=== PATIENT | female | born 1945 | race Caucasian/White ===

== ENCOUNTER 2022-06-24 09:00 | Outpatient (CLI) | payer MEDICARE, SELFPAY ==
[2022-06-24 19:27] LABS: Alanine Aminotransferase 20 U/L (6-35); Albumin Level 4.5 g/dL (3.5-5.1); Alkaline Phosphatase 79 U/L (38-126); Anion Gap 12 mmol/L (8-16); Aspartate Amino Transferase 53 U/L (14-36); Bilirubin,Total 0.3 mg/dL (0.2-1.3); Blood Urea Nitrogen 22 mg/dL (7-17); Calcium 9.1 mg/dL (8.4-10.2); Carbon Dioxide 26 mmol/L (22-30); Chloride 105 mmol/L (98-107); Cholesterol 269 mg/dL (0-200); Estimated Glomerular Filt Rate > 60; Glucose 110 mg/dL (65-110); HDL Direct 51 mg/dL; Potassium 4.2 mmol/L (3.4-5.0); Sodium 143 mmol/L (137-145); Triglycerides 118 mg/dL (<150)
[2022-06-24 19:38] LABS: LDL Cholesterol Direct 169 mg/dL
[2022-06-24 19:40] LABS: Basophils Percent Auto 0.5 % (0.2-1.2); Eosinophils Absolute Auto 0.1 K/mm3 (0-0.3); Eosinophils Percent Auto 1.6 % (0-4.4); Hematocrit 46.4 % (37.0-47.0); Hemoglobin 14.1 g/dL (12.0-15.0); Immature Granulocyte Absolute 0.02 K/mm3 (0.00-0.031); Immature Granulocyte Percent A 0.3 % (0-0.5); Lymphocytes Absolute Auto 1.95 K/mm3 (0.9-3.2); Lymphocytes Percent Auto 31.2 % (18.3-44.2); Mean Corpuscular HGB Conc 30.4 g/dl (32-36); Mean Corpuscular Hemoglobin 28.1 pg (26-34); Mean Corpuscular Volume 92.4 fl (80-100); Mean Platelet Volume 9.8 fl (7.4-10.4); Monocytes Absolute Auto 0.5 K/mm3 (0.1-0.6); Monocytes Percent Auto 8.1 % (2.6-8.5); Neutrophils Absolute Auto 3.7 K/mm3 (1.3-6.7); Neutrophils Percent Auto 58.3 % (45.5-73.1); Platelet Count Result 305 k/mm3 (150-375); Red Blood Count 5.02 M/mm3 (4.2-5.4); Red Cell Distribution Width 14.3 % (11.5-14.5); White Blood Count 6.3 K/mm3 (4.5-10.0)
== END 2022-06-24 09:01 | disposition home or self-care (01) ==
PROVIDERS: PCP Family Medicine; Visit Provider Family Medicine
DX: E89.0 Postprocedural hypothyroidism (principal)
CPT/HCPCS: 36415; 80053; 80061; 84443; 85025

== ENCOUNTER 2022-08-12 15:18 | Outpatient (CLI) | payer MEDICARE, SELFPAY ==
[2022-08-12 20:11] LABS: Alanine Aminotransferase 22 U/L (6-35); Albumin Level 4.2 g/dL (3.5-5.1); Alkaline Phosphatase 68 U/L (38-126); Aspartate Amino Transferase 41 U/L (14-36); Bilirubin,Total 0.4 mg/dL (0.2-1.3)
[2022-08-12 21:24] LABS: Hepatitis B Surface Antigen Negative (Negative)
[2022-08-12 21:27] LABS: HAV RESULT Negative (Negative); Hepatitis B Core IgM Result Negative (Negative)
[2022-08-12 21:35] LABS: Hepatitis C Virus Antibody Negative (Negative)
== END 2022-08-12 15:19 | disposition home or self-care (01) ==
PROVIDERS: PCP Family Medicine; Visit Provider Family Medicine
DX: R74.01 Elevation of levels of liver transaminase levels (principal); E03.9 Hypothyroidism, unspecified
CPT/HCPCS: 36415; 80074; 80076; 84443

== ENCOUNTER 2022-10-07 14:34 | Outpatient (CLI) | payer MEDICARE, SELFPAY ==
[2022-10-07 21:58] LABS: Thyroid Stimulating Hormone 0.263 uIU/mL (0.465-4.680)
[2022-10-07 23:04] LABS: Hemoglobin A1C 6.6 % (<5.7)
== END 2022-10-07 14:35 | disposition home or self-care (01) ==
PROVIDERS: PCP Family Medicine; Visit Provider Family Medicine
DX: E11.9 Type 2 diabetes mellitus without complications (principal); E89.0 Postprocedural hypothyroidism
CPT/HCPCS: 36415; 83036; 84443

== ENCOUNTER 2022-10-19 14:00 | Outpatient (RCR) | payer MEDICARE, SELFPAY | END 2023-01-03 08:47 | disposition home or self-care (01) | LOC: ANHST 14:00 | PROVIDERS: PCP Family Medicine; Visit Provider Otolaryngology | DX: J38.7 Other diseases of larynx (principal); R49.0 Dysphonia | CPT/HCPCS: 99199 ==

== ENCOUNTER 2022-11-01 10:55 | Outpatient (CLI) | payer MEDICARE, SELFPAY ==
[2022-11-01 12:16] LABS: Cholesterol 222 mg/dL (0-200); HDL Direct 47 mg/dL; Triglycerides 188 mg/dL (<150)
[2022-11-01 12:27] LABS: LDL Cholesterol Direct 127 mg/dL
== END 2022-11-01 10:56 | disposition home or self-care (01) ==
PROVIDERS: PCP Family Medicine; Visit Provider Internal Medicine Cardiovascular Disease
DX: E78.5 Hyperlipidemia, unspecified (principal)
CPT/HCPCS: 36415; 80061

== ENCOUNTER 2022-11-16 09:03 | Outpatient (CLI) | payer MEDICARE, SELFPAY ==
[2022-11-16 09:31] LABS: Cholesterol 206 mg/dL (0-200); HDL Direct 42 mg/dL; Triglycerides 134 mg/dL (<150)
[2022-11-16 09:44] LABS: LDL Cholesterol Direct 119 mg/dL
[2022-11-17 16:06] LABS: Thyroid Stimulating Hormone 0.206 uIU/mL (0.465-4.680)
== END 2022-11-16 09:04 | disposition home or self-care (01) ==
PROVIDERS: PCP Family Medicine; Visit Provider Internal Medicine Cardiovascular Disease
DX: E78.5 Hyperlipidemia, unspecified (principal)
CPT/HCPCS: 36415; 80061; 84443

== ENCOUNTER 2023-03-01 08:03 | Outpatient (CLI) | payer MEDICARE, SELFPAY ==
[2023-03-01 20:01] LABS: Hematocrit 46.1 % (37.0-47.0); Hemoglobin 13.7 g/dL (12.0-15.0); Mean Corpuscular HGB Conc 29.7 g/dl (32-36); Mean Corpuscular Hemoglobin 27.6 pg (26-34); Mean Corpuscular Volume 92.8 fl (80-100); Platelet Count Result 291 k/mm3 (150-375); Red Blood Count 4.97 M/mm3 (4.2-5.4); Red Cell Distribution Width 14.1 % (11.5-14.5)
[2023-03-01 20:16] LABS: Anion Gap 6 mmol/L (8-16); Blood Urea Nitrogen 29 mg/dL (7-17); Calcium 9.3 mg/dL (8.4-10.2); Carbon Dioxide 29 mmol/L (22-30); Chloride 104 mmol/L (98-107); Estimated Glomerular Filt Rate > 60; Glucose 137 mg/dL (65-110); Potassium 3.9 mmol/L (3.4-5.0); Sodium 139 mmol/L (137-145)
[2023-03-01 21:40] LABS: Appearance Urine Clear (Clear); Bacteria Urine None Seen /hpf; Bilirubin Urine Negative (Negative); Blood Urine Negative (Negative); Color Urine Yellow (Yellow); Glucose Urine UA Negative (Negative); Ketones Urine Negative (Negative); Leukocyte Esterase Ur 1+ LEU/UL (NEGATIVE); Need Manual Microscopic Reviewed; Nitrate Urine Negative (Negative); Non Pathogenic Casts 0-2; Protein Urine Negative (Negative); RBC Urine 0-2 /hpf (0-2); Specific Grav Ur 1.032 (1.001-1.035); Squamous Epithelial Cell Urine Few /hpf (Few); Urobilinogen Urine 0.2 mg/dL (<2.0)
[2023-03-01 23:03] LABS: Add Urine Microscopic? YES
== END 2023-03-01 08:04 | disposition home or self-care (01) ==
PROVIDERS: PCP Family Medicine; Visit Provider Nurse Practitioner Adult Health
DX: E03.9 Hypothyroidism, unspecified (principal); R42 Dizziness and giddiness
CPT/HCPCS: 36415; 80048; 81001; 84443; 85027

== ENCOUNTER 2023-03-01 09:06 | Outpatient (CLI) | payer MEDICARE, SELFPAY ==
--- NOTE | ~2023-03-01 | US_ITS ---
EXAMINATION: US venous doppler [facility] DATE: 03/01/2023 09:47 INDICATION: Left lower limb pain. TECHNIQUE: Grayscale ultrasound images without and with compression and Doppler ultrasound images of the left lower extremity veins were obtained. COMPARISON: None. FINDINGS: The visualized portions of left common femoral vein, profunda (deep) femoral vein, femoral vein, popl iteal vein, peroneal veins, posterior tibial veins, and greater saphenous vein outflow are patent. Th ere is thrombosis of a superficial vein in the left thigh. IMPRESSION: 1. No deep venous thrombosis. 2. Thrombosis of a superficial vein in the left thigh. Reviewed, dictated and finalized at location A.
== END 2023-03-01 09:07 | disposition home or self-care (01) ==
LOC: ANHIMG 09:08
PROVIDERS: PCP Family Medicine; Visit Provider Nurse Practitioner Adult Health
DX: I82.812 Embolism and thrombosis of superficial veins of left lower extremity (principal)
CPT/HCPCS: 36415; 80048; 81001; 84443; 85027; 93971

== ENCOUNTER 2023-06-29 10:53 | Outpatient (CLI) | payer MEDICARE, SELFPAY ==
[2023-06-29 20:34] LABS: Anion Gap 9 mmol/L (8-16); Blood Urea Nitrogen 20 mg/dL (7-17); Calcium 9.1 mg/dL (8.4-10.2); Carbon Dioxide 28 mmol/L (22-30); Chloride 99 mmol/L (98-107); Cholesterol 216 mg/dL (0-200); Estimated Glomerular Filt Rate > 60; Glucose 331 mg/dL (65-110); HDL Direct 42 mg/dL; Potassium 3.9 mmol/L (3.4-5.0); Sodium 136 mmol/L (137-145); Triglycerides 204 mg/dL (<150)
[2023-06-29 20:45] LABS: LDL Cholesterol Direct 115 mg/dL
[2023-06-29 20:48] LABS: Creatinine Urine 91.5 mg/dL; MALB Creatinine Ratio 7.7 mg/g (0-30)
[2023-06-29 21:00] LABS: Hemoglobin A1C 8.2 % (<5.7)
[2023-06-29 21:08] LABS: Thyroid Stimulating Hormone 0.033 uIU/mL (0.465-4.680)
== END 2023-06-29 10:54 | disposition home or self-care (01) ==
PROVIDERS: PCP Family Medicine; Visit Provider Nurse Practitioner Adult Health
DX: E03.9 Hypothyroidism, unspecified (principal); E11.9 Type 2 diabetes mellitus without complications
CPT/HCPCS: 36415; 80048; 80061; 82043; 83036; 84443

== ENCOUNTER 2023-09-06 10:48 | Outpatient (CLI) | payer MEDICARE, SELFPAY ==
[2023-09-06 21:08] LABS: Thyroid Stimulating Hormone 0.079 uIU/mL (0.465-4.680)
== END 2023-09-06 10:49 | disposition home or self-care (01) ==
PROVIDERS: PCP Nurse Practitioner Adult Health; Visit Provider Nurse Practitioner Adult Health
DX: E03.9 Hypothyroidism, unspecified (principal)
CPT/HCPCS: 36415; 84443

== ENCOUNTER 2024-04-11 11:44 | Emergency (ER) | payer MEDICARE, SELFPAY ==
--- NOTE | ~2024-04-11 | XR_ITS ---
EXAMINATION: XR chest 1V portable DATE: 04/11/2024 14:55 INDICATION: Left chest pain. TECHNIQUE: A single frontal view of the chest was obtained. COMPARISON: None. FINDINGS: There is no pneumonia, pleural effusion, or pneumothorax. The heart size is normal. Surgica l clips in the right upper quadrant are likely from cholecystectomy. IMPRESSION: 1. No acute cardiopulmonary disease. Reviewed, dictated and finalized at location A.
--- NOTE | ~2024-04-11 | CT_ITS ---
Non-contrast Head CT History: Head injury Technique: Axial non-contrast imaging of the brain was performed. Dose reduction technique was used on this scan by utilizing automated exposure control and iterative reconstruction technique. The dose -length product (DLP) was 605.33 mGy-cm. Findings: There is no evidence of intracranial hemorrhage, mass lesion, or acute infarct. Brain par enchyma appears normal. The ventricles and subarachnoid spaces are normal in size. The calvarium ap pears normal. The visualized paranasal sinuses and mastoid air cells are clear. Impression: No significant abnormality seen. Reviewed, dictated and finalized at location . Impression: No significant abnormality seen.
--- NOTE | ~2024-04-11 | CT_ITS ---
CT Facial Bones Clinical Indication: Trauma Technique: Contiguous axial scans were obtained through the facial bones followed by coronal and sagi ttal reconstructions. Dose reduction technique was used on this scan by utilizing automated exposure control and iterative reconstruction technique. The dose-length product (DLP) was 605.33 mGy-cm. Findings: No fractures are identified. The visualized paranasal sinuses are clear. Intraorbital soft tissues appear normal. There is minimal soft tissue swelling over the left cheek. Mild erosive change at the left side of the maxilla is probably related to periodontal disease, with loss of dentition t his region (axial image 144 for example). Impression: No acute fracture identified. Mild soft tissue swelling over the left cheek. Erosive changes of the left maxillary is probably related to periodontal disease and loss of dentitio n, as noted above. Reviewed, dictated and finalized at [facility]. Impression: No acute fracture identified. Mild soft tissue swelling over the left cheek. Erosive changes of the left maxillary is probably related to periodontal diseas e and loss of dentition, as noted above.
[2024-04-11 11:48] VITALS: BP 144/77; PULSE 64; RESP 18; TEMP 36.6; O2SAT 96
--- NOTE | 2024-04-11 12:01 | ED.FALL ---
HPI - Fall General Chief Complaint: Fall Stated Complaint: fall Time Seen by Provider: 04/11/24 11:48 History of Present Illness HPI Narrative: 78-year-old female presenting to the emergency department for evaluation after having a mechanical fall. Patient states she was caring multiple objects and tripped over a step on her driveway. Patient fell forward striking the left side of her face and injuring left ribs. Patient is unsure if she had loss of consciousness. Patient does take a baby aspirin but is on no blood thinners. Related Data Allergies Allergy/AdvReac Type Severity Reaction Status Date / Time No Known Allergies Allergy Verified 04/11/24 11:54 Review of Systems Review of Systems: All systems reviewed & are unremarkable except as noted in HPI and below PMFSH Family History Family History Father Diabetes mellitus Hypertension Disorder of thyroid Mother Cancer Social History Social History Smoking status: Never smoker Alcohol intake: never Lack of Transportation: No Lack of Food: Never True Current Housing: I Have Housing Concerned About Future Housing: No Difficulty Paying Gas/Electric Bills: No Difficulty Paying for Meds: No Currently Unemployed: No Education: High School Diploma/GED Difficulty w/ Childcare or Family Care: No Living arrangements: with family Exam Narrative: APPEARANCE: Well appearing, no pain, no distress, well-nourished. HEAD: normocephalic, contusion to left face. EYES: PERRLA/EOMI, conjunctivae clear. NOSE: Normal no drainage EARS:TMS clear with good light reflex. THROAT: Pharynx clear, no exudate. NECK: Supple. No adenopathy, no masses. RESPIRATORY: Airway patent, respirations nonlabored. Clear to auscultation bilaterally, no rales, rhonchi, wheezing. CARDIOVASCULAR: Regular rate and rhythm without murmurs rubs or gallops. ABDOMINAL: Soft, nontender, nondistended, normal bowel sounds MUSCULOSKELETAL: Left lower rib tenderness to palpation with no ecchymosis deformity or crepitus NEURO: Alert. Cranial nerves II through XII intact. Grossly intact SKIN: Left-sided facial contusion Course Course Emergency Course: Patient had negative imaging and patient was discharged home. Vital Signs Vital signs: Vital Signs Temperature 98 F 04/11/24 11:48 Pulse Rate 64 04/11/24 11:48 Respiratory Rate 18 04/11/24 11:48 Blood Pressure 144/77 H 04/11/24 11:48 Pulse Oximetry 96 04/11/24 11:48 Oxygen Delivery Room Air 04/11/24 11:48 Temperature 98 F 04/11/24 11:48 Pulse Rate 70 04/11/24 14:21 Respiratory Rate 14 04/11/24 14:21 Blood Pressure 143/78 H 04/11/24 14:21 Pulse Oximetry 96 04/11/24 14:21 Oxygen Delivery Room Air 04/11/24 11:48 MDM - Fall MDM Narrative Medical decision making narrative: 78-year-old female presented emergency department for evaluation after having a ground level fall. Head facial neck CTs were negative for acute injury. Patient's x-ray was also negative. Patient was comfortable the plan for discharge and close follow-up. Patient describes a mechanical fall. Imaging Data Radiologist's impression: Impressions Head CT 04/11/24 12:35 Impression: No significant abnormality seen. Face CT 04/11/24 14:07 Impression: No acute fracture identified. Mild soft tissue swelling over the left cheek. Erosive changes of the left maxillary is probably related to periodontal disease and loss of dentition, as noted above. Discharge Plan Discharge Clinical Impression: Facial injury, Head injury, Contusion of ribs Patient Disposition: Home, Self-Care Condition: Stable Instructions: Antibiotic Form, Head Injury (ED), Rib Contusion (ED), Facial Contusion (ED) Additional Instructions: Have close follow-up with your primary care phys
[2024-04-11 14:21] VITALS: BP 143/78; PULSE 70; RESP 14; O2SAT 96
--- NOTE | 2024-04-11 14:54 | PC.NURSE ---
Patient given water
== END 2024-04-11 15:19 | disposition home or self-care (01) ==
PROVIDERS: Emergency Provider Emergency Medicine; PCP Nurse Practitioner Adult Health
DX: S00.83XA Contusion of other part of head, initial encounter (principal); S20.212A Contusion of left front wall of thorax, initial encounter; Z79.899 Other long term (current) drug therapy; Z79.84 Long term (current) use of oral hypoglycemic drugs; W18.09XA Striking against other object with subsequent fall, initial encounter
CPT/HCPCS: 70450; 70486; 71045; 99284

== ENCOUNTER 2024-06-11 10:13 | Outpatient (CLI) | payer MEDICARE, SELFPAY ==
[2024-06-11 18:29] LABS: Hematocrit 46.6 % (37.0-47.0); Hemoglobin 14.5 g/dL (12.0-15.0); Mean Corpuscular HGB Conc 31.1 g/dl (32-36); Mean Corpuscular Volume 86.8 fl (80-100); Mean Platelet Volume 9.8 fl (7.4-10.4); Platelet Count Result 292 k/mm3 (150-375); Red Blood Count 5.37 M/mm3 (4.2-5.4); Red Cell Distribution Width 13.1 % (11.5-14.5); White Blood Count 5.1 K/mm3 (4.5-10.0)
[2024-06-11 18:51] LABS: LDL Cholesterol Direct 99 mg/dL
[2024-06-11 19:12] LABS: Hemoglobin A1C 9.3 % (<5.7)
[2024-06-11 19:58] LABS: Alanine Aminotransferase 20 U/L (6-35); Alkaline Phosphatase 121 U/L (38-126); Aspartate Amino Transferase 51 U/L (14-36); Bilirubin,Total 0.5 mg/dL (0.2-1.3); Calcium 9.4 mg/dL (8.4-10.2); Chloride 105 mmol/L (98-107); Glucose 172 mg/dL (65-110); HDL Direct 46 mg/dL; Sodium 139 mmol/L (137-145); Triglycerides 125 mg/dL (<150)
[2024-06-11 20:02] LABS: Thyroid Stimulating Hormone < 0.015 uIU/mL (0.465-4.680)
[2024-06-11 20:35] LABS: Anion Gap 7 mmol/L (4-12); Carbon Dioxide 27 mmol/L (22-30)
[2024-06-11 20:36] LABS: Albumin Level 3.9 g/dL (3.5-5.1); Blood Urea Nitrogen 22 mg/dL (7-17); Cholesterol 191 mg/dL (0-200); Estimated Glomerular Filt Rate > 60; Total Protein 7.4 g/dL (6.3-8.2)
[2024-06-11 21:37] LABS: Creatinine Urine 273.8 mg/dL
[2024-06-11 21:42] LABS: MALB Creatinine Ratio 8.1 mg/g (0-30); Microalbumin Urine Random 22.2 mg/L (0-16.7)
== END 2024-06-11 10:14 | disposition home or self-care (01) ==
LOC: ANHBWCLAB 10:14
PROVIDERS: PCP Nurse Practitioner Adult Health; Visit Provider Nurse Practitioner Adult Health
DX: E03.9 Hypothyroidism, unspecified (principal); E11.9 Type 2 diabetes mellitus without complications; E78.5 Hyperlipidemia, unspecified
CPT/HCPCS: 36415; 80053; 80061; 82043; 82565; 83036; 84443; 85027

== ENCOUNTER 2024-09-11 13:33 | Outpatient (CLI) | payer MEDICARE, SELFPAY ==
--- OUTSIDE RECORDS SUMMARY | 2024-09-11 14:11 | XMS_ITS | Clinical Summary ---
Author Organization [facility] Address [address] [place] [address] Phone Care Team Providers Care Tetryl Blender Operator Name Role Phone KARLY JACOBSON MD Primary Care Provider [phone] Reason for Visit and Chief Complaint CHART UPDATE Problems Includes: Problems addressed during this encounter and other active Problems All Visits Onset Date Resolved Date Provider Condition S tatus OSTEOPOROSIS NEC 11/21/2008 KARLY JACOBSON MD Active Last Documented On 9 12:05PM ; [facility] PERNICIOUS ANEMIA 11/21/2008 KARLY JACOBSON MD Active Last Documented On 9 12:05PM ; [facility] Plan of Treatment No Plan of Treatment Recorded Assessments Includes: Assessments from this encounter No Assessments Recorded Medical Equipment - Implanted Devices Includes: Current Devices No Medical Equipment Recorded Medications Includes: Medications discussed during this encounter and other current Medications Past Medications on file Ambien CR 6.25 MG OR TBCR 07/29/2009 - 08/02/2009 Prov ider: KARLY JACOBSON MD Diagnosis: #4 DISPENSED Last Documented On 9 9:29PM By KARLY JACOBSON MD ; [facility] Medications Administered Includes: Administered Medications from this encounter No Administered Medications Recorded Results Includes: Results discussed during this encounter No Results Recorded For Specified Dates History of Present Illness Includes: History of Present Illness from this encounter HPI DEBRA OMALLEY is a 64 year old female. - Surgical history reviewed LT SHOULDER DISLOCATION AND FRACTURE 09/30/09. Social History Description Last Updated Currently 11/21/2008 Last Documented On 0 9:28AM ; [facility] No consumption of alcohol 11/21/2008 Last Documented On 0 9:28AM ; [facility] No tobacco use 11/21/2008 Last Documented On 0 9:28AM ; [facility] Not using drugs 11/21/2008 Last Documented On 0 9:28AM ; [facility] Smoking Status Unknown Procedures and Surgical History Surgical History Last Updated History of hysterectomy 11/21/2008 Last Documented On 0 9:28AM ; [facility] Medical History Includes: Medical History addressed during this encounter Description Last Updated History of arthritis 11/21/2008 Last Documented On 0 9:28AM ; [facility] Family History Includes: Family History addressed during this encounter Description Last Updated Family history of diabetes mellitus 04/2009 Last Documented On 0 9:28AM ; [facility] Heart disease 11/21/2008 Last Documented On 0 9:28AM ; [facility] Review of Systems Includes: Review of Systems from this encounter No Review of Systems Recorded Mental Status Includes: Mental Status from this encounter No Mental Status Recorded Functional Status Includes: Functional Status from this encounter No Functional Status Recorded Physical Exam Includes: Physical Exam from this encounter No Physical Exam Recorded Allergies Includes: Active Allergies No Known Allergies Encounters Encounter Provider Location Date Check-In Time Check-Out Time Diagnosis CHART UPDATE [facility]/03/19 10 9:27AM 11:59PM Insurance Includes: Active Insurance Policies Plan Name Member ID Group # Subscriber Relationship Effect micha Dates - [id number] ROSALINA OMALLEY Clinical Notes Includes: Clinical Notes from this encounter No Clinical Notes Recorded
--- OUTSIDE RECORDS SUMMARY | 2024-09-11 14:11 | XMS_ITS | Clinical Summary ---
Author Organization [facility] Address [address] [place] [address] Phone Care Team Providers Care Purchasing Coordinator Name Role Phone Sukumar Fitch MD Primary Care Provider [phone] Allergies No known active allergies Medications Blood Glucose Monitoring Suppl Device Diagnosis: Diabetes type 2 Blood testing frequency: daily 1 Each 0 6 Active Iodine Strong, Lugols, (IODINE STRONG PO) Take by mouth. Active TURMERIC PO Take by mouth. Active COD LIVER OIL PO Take by mouth. Active Docusate Calcium (STOOL SOFTENER PO) Take by mouth. Active Misc. Devices Misc Supply and instructions: 1 Each 1 Active Glucose Blood (Accu-Chek Guide) StripIndications: Type 2 diabetes mellitus without complication, without long-term current use of insulin (HCC) USE TO CHECK BLOOD SUGAR DAILY 100 Strip 2 1 Active Accu-Chek FastClix Lancets MiscIndications:T ype 2 diabetes mellitus without complication, without long-term current use of insulin (HCC) USE TO TEST BLOOD SUGAR ONCE DAILY 100 Lancet 3 1 Active Blood Glucose Monitoring Suppl (Accu-Chek Guide Fl) w/Device Kit USE TO TEST BLOOD SUGAR ONCE DAILY 1 Kit 1 Active Zinc 50 MG Capsule Take 50 mg by mouth. Active Magnesium 250 MG Tablet Take 500 mg by mouth. Active glimepiride (AMARYL) 1 MG TabletIndications :Type 2 diabetes mellitus without complication, without long-term current use of insulin (HCC) TAKE 1 TABLET BY MOUTH EVERY DAY IN THE MORNING WITH FOOD 90 Tablet 2 2 Active levothyroxine (SYNTHROID) 150 MCG Tablet Take 1 Tablet by mouth daily. 90 Tablet 3 2 Active alendronate (FOSAMAX) 70 MG TabletIndications :Age-related osteoporosis without current pathological fracture TAKE 1 TABLET BY MOUTH ONE TIME PER WEEK 12 Tablet 1 3 Active Active Problems Problem Noted Date Diagnosed Date GERD (gastroesophageal reflux disease) 8 Colon cancer screening 12/08/2015 Right knee pain 08/28/2015 Immunizations Immunization Administration Dates Next Due Influenza Vaccine greater than 3 yrs 08/15/2012 Influenza, Seasonal, Injectable, Undefined 08/15 Pneumococcal Vaccine - 13 Valent 09/19/2017 Pneumococcal Vaccine Adult - 23 Valent 1 TDAP Vaccine 11/25/2017 Family History Medical History Relation Name Comments Diabetes Father Heart Attack Father Heart Disease Father complication f rom rheumatic fever Other-comment Father rheumatic feve r as a teen Breast Cancer Mother Heart Disease Mother stents High Cholesterol Mother Relation Name Status Comments Father Mother Social History Tobacco Use Types Packs/Day Years Used Date Smoking Tobacco: Never Smokeless Tobacco: Never Tobacco Cessation:Counseling Given: No Alcohol Use Standard Drinks/Week Comments No 0 (1 standard drink = 0.6 oz pur e alcohol) PHQ-2 Answer Date Recorded Total Score - Questions 1-9 0 08/15 Education Answer Date Recorded What is the highest level of school you have completed or the highest degree you have received? 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 Not on file Not on file Not on file Last Filed Vital Signs Vital Sign Reading Time Taken Comments Blood Pressure 128/64 02/25/2022 1:46 PM CDT Pulse 68 02/25/2022 1:46 PM CDT Temperature 36.6 ??C (97.8 ??F) 02/25/2022 1:46 PM CD T Respiratory Rate 16 02/25/2022 1:46 PM CDT Oxygen Saturation 99% 02/25/2022 1:46 PM CDT Inhaled Oxygen Concentration - - Weight 71.4 kg (157 lb 4.8 oz) 02/25/2022 1:46 P M CDT Height 162.6 cm (5' 4 ) 02/25/2022 1:46 PM CDT Body Mass Index 27 02/25/2022 1:46 PM CDT Plan of Treatment Health Maintenance Due Date Last Done Comments Hepatitis C Virus (HCV) Screening 1945 Zoster Immunization (1 of 2) 1997 Respiratory Syncytial Virus (RSV) Immunization (Adult) (1 - 1-dose 75+ series) 2022 DEXA Bone Density 09/25/2023 09/25/2021 Influenza Immunization (#1) 2024 08/15/2012 SARS-COV-2 Immunization ( season) 2024 Td Immunization Every 10 Yea rs (Adults With 1 Tdap) 11/26/2027 11/25/2017 Colonoscopy High Risk Discontinued 01/27/2016 , 02/09/2012 Colonoscopy Discontinued 01/27/2016, 02/09/2012 Colorectal Cancer Screening Discontinued Mammogram Discontinued 07/03/2020, 02/13/2018 Pneumococcal Immunization (5 0+ years) Completed 02/06/2021, 09/19/2017 Pneumococcal Immunization Combined Discontinued 02/06/2021, 09/19/2017 Cologuard Discontinued Hepatitis B Immunization Aged Out No longer eligible based on patient's age to complete this topic Immunochemical Fecal Occult Blood Discontinued Meningococcal Immunization (ACWY) Aged Out No longer eligible based on patient's age to complete this topic Rotavirus Immunization Aged Out No lo nger eligible based on patient's age to complete this topic Procedures Procedure Name Priority Date/Time Associated Diagnosis Comments [facility] BONE DENSITOMETRY AXIAL SKELETON Routine 09/25/2021 2:10 PM OIL FIELD OPERATOR Menopause [facility] SCREENING BILATERAL DIGITAL W CAD W YAA Routine 07/03/2020 5:17 PM OIL FIELD OPERATOR Encounter for screening mammogram for malignant neoplasm of breast COLONOSCOPY Routine 02/09/2012 from Last 3 Months or Most Recently Relevant to Health Maintenance Results * [facility] BONE DENSITOMETRY AXIAL SKELETON (09/25/2021 2:10 PM OIL FIELD OPERATOR) Anatomical Region Laterality Modality BODY N/A Other 09/25/2021 2:33 PM OIL FIELD OPERATOR Impressions 09/25/2021 2:36 PM OIL FIELD OPERATOR IMPRESSION: ?? Osteoporosis. REFERENCE: Bone mineral density: ? Normal (T-score above or = -1.0) ? Low bone mass ??(T-score between -1.0 and -2.5) replaces the previously used term osteopenia ? Osteoporosis (T-score = or below -2.5) Medical evaluation for secondary causes of low bone mineral density may be appropriate. FRAX is a World Health Organization validated fracture risk assessment tool that calculates a person's 10 year probability of a major osteoporosis related fracture and hip fracture. ??According to the National Osteoporosis Foundation guidelines, postmenopausal women and men age 50 or older with low bone mass and a 10 year probability of a major osteoporosis related fracture = or greater than 20% or a 10 year probability of a hip fracture = or greater than 3% should be considered for treatment. For further information, including treatment recommendations, please refer to the 2013 ISCD Official Positions (http://www.iscd.org) and the NOF's Clinician's Guide to Prevention and Treatment of Osteoporosis (http://www.nof.org/professionals/clinical-guidelines) Narrative 09/25/2021 2:36 PM OIL FIELD OPERATOR EXAM DESCRIPTION: ?? [facility] BONE DENSITOMETRY AXIAL SKELETON REASON FOR STUDY: ?? 76 y/o ?? year old ?? F ??with given history of screening. 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 [employer] (S/N [id number]) CLINICAL INFORMATION: Current height: ?? 5 foot 4 ??inches ? Maximum height: 5 foot 4 inches ? Weight: 153 pounds Risk factors: Traumatic adult fracture. COMPARISON: ?? 01/26/2011 FINDINGS: AP LUMBAR SPINE L1-L4: Total BMD is ?? 0.751 ??g/cm2 T-score is -3.6 Most recent prior BMD was 0.787 g/cm2 There has been a -4.6% change in BMD which which is statistically significant. LEFT HIP: Current Total BMD is 0.783 g/cm2 T-score is -1.8 Most recent prior Total BMD was 0.780 g/cm2 There has been a 0.4% change in BMD which is not statistically significant. Current femoral neck BMD is 0.747 g/cm2 T-score is -2.1 THIS IS AN ELECTRONICALLY VERIFIED FINAL REPORT 09/25/2021 2:33 PM - Electronically signed by ??Yash Houston M.D. AG: MOMO D: ??09/25/2021 2:33 PM T: ??09/25/2021 2:33 PM Report ID: [id number] Reading Location: ??[id number] Procedure Note Yash Houston MD - 09/25/2021 EXAM DESCRIPTION: [facility] BONE DENSITOMETRY AXIAL SKELETON REASON FOR STUDY: 76 y/o year old F with given history of screening. 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 (S/N [id number]) CLINICAL INFORMATION: Current height: 5 foot 4 inches Maximum height: 5 foot 4 inches Weight: 153 pounds Risk factors: Traumatic adult fracture. COMPARISON: 01/26/2011 FINDINGS: AP LUMBAR SPINE L1-L4: Total BMD is 0.751 g/cm2 T-score is -3.6 Most recent prior BMD was 0.787 g/cm2 There has been a -4.6% change in BMD which which is statistically significant. LEFT HIP: Current Total BMD is 0.783 g/cm2 T-score is -1.8 Most recent prior Total BMD was 0.780 g/cm2 There has been a 0.4% change in BMD which is not statistically significant. Current femoral neck BMD is 0.747 g/cm2 T-score is -2.1 THIS IS AN ELECTRONICALLY VERIFIED FINAL REPORT 09/25/2021 2:33 PM - Electronically signed by Yash Houston M.D. AG: MOMO Report ID: [id number] Reading Location: [id number] IMPRESSION: Osteoporosis. REFERENCE: Bone mineral density: Normal (T-score above or = -1.0) Low bone mass (T-score between -1.0 and -2.5) replaces the previously used term osteopenia Osteoporosis (T-score = or below -2.5) Medical evaluation for secondary causes of low bone mineral density may be appropriate. FRAX is a World Health Organization validated fracture risk assessment tool that calculates a person's 10 year probability of a major osteoporosis related fracture and hip fracture. According to the National Osteoporosis Foundation guidelines, postmenopausal women and men age 50 or older with low bone mass and a 10 year probability of a major osteoporosis related fracture = or greater than 20% or a 10 year probability of a hip fracture = or greater than 3% should be considered for treatment. For further information, including treatment recommendations, please refer to the 2013 ISCD Official Positions (http://www.iscd.org) and the NOF's Clinician's Guide to Prevention and Treatment of Osteoporosis (http://www.nof.org/professionals/clinical-guidelines) us Jorge Alberto Ng MD IMG DEXA ORDERABLES Final Res ult * [facility] SCREENING BILATERAL DIGITAL W CAD W YAA (07/03/2020 5:17 PM OIL FIELD OPERATOR) Anatomical Region Laterality Modality breast Bilateral Mammography 07/03/2020 4:46 PM OIL FIELD OPERATOR Narrative 07/04/2020 11:57 AM OIL FIELD OPERATOR - [facility] SCREENING BILATERAL DIGITAL W CAD W YAA BILATERAL DIGITAL SCREENING MAMMOGRAM 3D/2D WITH CAD WITH MEDIOLATERAL OBLIQUE CRANIOCAUDAL: 07/03/2020 The study was acquired using digital technology and interpreted from soft copy. ?? Current study was also evaluated with ICAD version 7.2. ?? CLINICAL: Routine screening. Patient has no complaints. ??Personal history of thyroid cancer. Mother with postmenopausal breast cancer. COMPARISONS: Comparison is made to exams dated: ??02/13/2018 and 01/26/2011 [facility]. ?? BREAST TISSUE:There are scattered fibroglandular densities in both breasts. ?? FINDINGS: There is a focal asymmetry in the left breast at 1 o'clock middle depth. ?? No other significant masses, calcifications, or other findings are seen in either breast. ?? IMPRESSION: BI-RAD 0 ??ADDITIONAL IMAGING EVALUATION NEEDED The focal asymmetry in the left breast is indeterminate. ??Additional views with possible ultrasound are recommended. ?? An immediate follow-up is recommended. ?? The patient has been or will be contacted. ?? Electronically signed by: Faustina Newton M.D. ? ab/penrad:07/04/2020 10:29:42 ?? Associate Professor Of Library Media: Gia ALFONSOR)(M), [facility] letter sent: Additional Imaging ?? Reading location: [facility] BI-RADS: 0 Additional Imaging Evaluation Needed Procedure Note Faustina Newton MD - 07/04/2020 - [facility] SCREENING BILATERAL DIGITAL W CAD W YAA BILATERAL DIGITAL SCREENING MAMMOGRAM 3D/2D WITH CAD WITH MEDIOLATERAL OBLIQUE CRANIOCAUDAL: 07/03/2020 The study was acquired using digital technology and interpreted from soft copy. Current study was also evaluated with ICAD version 7.2. CLINICAL: Routine screening. Patient has no complaints. Personal history of thyroid cancer. Mother with postmenopausal breast cancer. COMPARISONS: Comparison is made to exams dated: 02/13/2018 and 01/26/2011 [facility]. BREAST TISSUE:There are scattered fibroglandular densities in both breasts. FINDINGS: There is a focal asymmetry in the left breast at 1 o'clock middle depth. No other significant masses, calcifications, or other findings are seen in either breast. IMPRESSION: BI-RAD 0 ADDITIONAL IMAGING EVALUATION NEEDED The focal asymmetry in the left breast is indeterminate. Additional views with possible ultrasound are recommended. An immediate follow-up is recommended. The patient has been or will be contacted. Electronically signed by: Faustina juarez/penrad:07/04/2020 10:29:42 Associate Professor Of Library Media: Gia ALFONSOR)(M), [facility] letter sent: Additional Imaging Reading location: [facility] BI-RADS: 0 Additional Imaging Evaluation Needed us Jorge Alberto Ng MD IMG MAMMO ORDERABLES Final Re sult * [facility] COLONOSCOPY (02/09/2012) us Jorge Alberto Ng MD PROCEDURE/MINOR SURGICAL ORDE RABLES Final Result from Last 3 Months or Most Recently Relevant to Health Maintenance Insurance MEDICARE C [employer] on file Care Teams Purchasing Coordinator Relationship Specialty Start Date End Date Sukumar Fitch MD [address] [place] [id number] PCP - General Family Medicine 11/19/22
--- OUTSIDE RECORDS SUMMARY | 2024-09-11 14:11 | XMS_ITS | Referral Summary ---
Author Organization [facility] Address [address] [place] [id number] Care Team Providers Care Mapping Specialist Name Role Phone Jorge Alberto Ng MD Primary Care Provider [phone] Allergies No known active allergies Medications levothyroxine (SYNTHROID) 175 mcg tablet TAKE 1 TABLET BY MOUTH EVERY DAY 06/11/2020 Active Accu-Chek Fastclix Lancet Drum misc USE TO TEST BLOOD SUGAR ONCE DAILY 09/02/2020 Active glimepiride (AMARYL) 1 mg tablet TAKE 1 TABLET BY MOUTH EVERY MORNING WITH FOOD 09/11/2020 Active Accu-Chek Guide Me Glucose Mtr misc USE TO TEST BLOOD SUGAR ONCE DAILY 09/02/2020 Active Accu-Chek Guide test strips strip USE TO CHECK BLOOD SUGAR DAILY 09/02/2020 Active Active Problems Problem Noted Date Diagnosed Date Sensorineural hearing loss, bilateral 11/20/2020 Social History Tobacco Use Types Packs/Day Years Used Date Smoking Tobacco: Never AUDIT-C Answer Date Recorded Q1: How often do you have a drink containing alc ohol? 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
--- OUTSIDE RECORDS SUMMARY | 2024-09-11 14:11 | XMS_ITS | Encounter Summary ---
Author Organization [facility] Address [address] [place] [address] Phone Care Team Providers Care Kitchen Help Handyman Name Role Phone Jorge Alberto Ng MD Primary Care Provider [phone] Sukumar Fitch MD Primary Care Provider [phone] Reason for Visit * Reason Comments Medication Refill Encounter Details Date Type Department Care Team (Late st Contact Info) Description 06/10/2020 Refill [facility] [address] [place] [address] Jorge Alberto Ng MD [address] [address] Medication Refill Social History Tobacco Use Types Packs/Day Years Used Date Smoking Tobacco: Never Smokeless Tobacco: Never Alcohol Use Standard Drinks/Week Comments No 0 (1 standard drink = 0.6 oz pur e alcohol) PHQ-2 Answer Date Recorded PHQ-2 Score 0 04/01/2020 Sexually Active Control Partners Comments Not Currently Comments No Sex and Gender Information Value Date Recorded Sex Assigned at Not on file Legal Sex Female 7:34 PM CDT Gender Identity Not on file Sexual Orientation Not on file Occupation Industry Job Start Date Job End Date 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 Please call in * Telephone Encounter - Paul Clinton RN - 06/11/2020 12:11 PM CDT Medication failed the protocol, provider to review and approve the medication order Requested Prescriptions Pending Prescriptions Disp Refills glimepiride (AMARYL) 1 MG Tablet [Pharmacy Med Name: GLIMEPIRIDE 1 MG TABLET] 90 Tab 2 Sig: TAKE 1 TABLET BY MOUTH EVERY MORNING WITH FOOD Endocrinology: Diabetes - Sulfonylureas Passed - 06/10/2020 3:03 PM Passed - Valid encounter within last 12 months Past Office Visits Recent Outpatient Visits 2 months ago Acquired hypothyroidism [facility] Jorge Alberto Garcia MD 1 year ago Anal lesion [facility] Jorge Alberto Garcia MD 2 years ago Goiter [facility] - Arabella Connors PAC 2 years ago Encounter for immunization [facility] - Evette Townsend PAC 2 years ago Uncontrolled type 2 diabetes mellitus without complication, without long-term current use of insulin ([facility]) [facility] Upcoming Appointments Future Appointments In 3 months Jorge Alberto Ng MD [facility] - Recent and Past Visits Recent Visits Date Type Provider Dept 04/01/20 Office Visit Jorge Alberto Ng MD [facility] Showing recent visits within past 460 days with a meds authorizing provider and meeting all other requirements Future Appointments No visits were found meeting these conditions. Showing future appointments within next 90 days with a meds authorizing provider and meeting all other requirements Passed - Last BP in normal range BP Readings from Last 1 Encounters: 04/01/20 104/60 levothyroxine (SYNTHROID) 175 MCG Tablet [Pharmacy Med Name: LEVOTHYROXINE 175 MCG TABLET] 90 Tab 2 Sig: TAKE 1 TABLET BY MOUTH EVERY DAY Endocrinology: Hypothyroid Agents Failed - 06/10/2020 3:03 PM Failed - TSH in normal range and within 360 days TSH Date Value Ref Range Status 02/21/2019 28.550 (H) 0.270 - 4.200 mIU/L Final Passed - Valid encounter within last 12 months Past Office Visits Recent Outpatient Visits 2 months ago Acquired hypothyroidism [facility] Jorge Alberto Garcia MD 1 year ago Anal lesion [facility] Jorge Alberto Garcia MD 2 years ago Goiter [facility] - Arabella Connors, PAC 2 years ago Encounter for immunization [facility] - Evette Townsend PAC 2 years ago Uncontrolled type 2 diabetes mellitus without complication, without long-term current use of insulin (HCC) [facility] Upcoming Appointments Future Appointments In 3 months Jorge Alberto Ng MD [facility] - Recent and Past Visits Recent Visits Date Type Provider Dept 04/01/20 Office Visit Jorge Alberto Ng MD [facility] Showing recent visits within past 460 days with a meds authorizing provider and meeting all other requirements Future Appointments No visits were found meeting these conditions. Showing future appointments within next 90 days with a meds authorizing provider and meeting all other requirements documented in this encounter Plan of Treatment Not on file documented as of this encounter Visit Diagnoses Diagnosis Type 2 diabetes mellitus without complication, without long-term current use of insulin (HCC) documented in this encounter Additional Health Concerns Assessment Noted Time PHQ-9 Depression Total Score: 0 04/01/20 20 2:36 PM CDT documented as of this encounter Care Teams Kitchen Help Handyman Relationship Specialty Start Date End Date Jorge Alberto Ng MD [address] [address] PCP - General Family Medicine 07/02/15 11/18/22 Sukumar Fitch MD [address] [place] [id number] PCP - General Family Medicine 11/19/22 documented as of this encounter
--- OUTSIDE RECORDS SUMMARY | 2024-09-11 14:11 | XMS_ITS | Clinical Summary ---
Author Organization [facility] Address [address] [address] Phone Care Team Providers Care Field Director Name Role Phone KARLY JACOBSON MD Primary Care Provider [phone] Reason for Visit and Chief Complaint * PHONE CALL Problems Includes: Problems addressed during this encounter and other active Problems All Visits Onset Date Resolved Date Provider Condition S tatus OSTEOPOROSIS NEC 11/21/2008 KARLY JACOBSON MD Active Last Documented On 9 12:05PM ; [facility] PERNICIOUS ANEMIA 11/21/2008 KARLY JACOBSON MD Active Last Documented On 9 12:05PM ; [facility] Plan of Treatment No Plan of [...] 9 9:29PM By KARLY JACOBSON MD ; [facility] Medications Administered Includes: Administered Medications from this encounter No Administered Medications Recorded Results Includes: Results discussed during this encounter No Results Recorded For Specified Dates History of Present Illness Includes: History of Present Illness from this encounter No History of Present Illness Recorded Social History Description Last Updated Currently 11/21/2008 Last Documented On 0 10:45AM ; [facility] No consumption of alcohol 11/21/2008 Last Documented On 0 10:45AM ; [facility] No tobacco use 11/21/2008 Last Documented On 0 10:45AM ; [facility] Not using drugs 11/21/2008 Last Documented On 0 10:45AM ; [facility] Smoking Status Unknown Procedures and Surgical History Surgical History Last Updated History of hysterectomy 11/21/2008 Last Documented On 0 10:45AM ; [facility] Medical History Includes: Medical History addressed during this encounter Description Last Updated History of arthritis 11/21/2008 Last Documented On 0 10:45AM ; [facility] Family History Includes: Family History addressed during this encounter Description Last Updated Family history of diabetes mellitus 04/2009 Last Documented On 0 10:45AM ; [facility] Heart disease 11/21/2008 Last Documented On 0 10:45AM ; [facility] Review of Systems Includes: Review of Systems [...] Location Date Check-In Time Check-Out Time Diagnosis * PHONE CALL KARLY JACOBSON MD [facility] 12/05/19 10 10:45AM 11:59PM Insurance Includes: Active Insurance Policies Plan Name Member ID Group # Subscriber Relationship Effect micha Dates - AE [id number] ROSALINA OMALLEY Clinical Notes Includes: Clinical Notes from this encounter No Clinical Notes Recorded
--- OUTSIDE RECORDS SUMMARY | 2024-09-11 14:11 | XMS_ITS | Clinical Summary ---
Author Organization [facility] Address [address] [place] [address] Phone Care Team Providers Care Recovery Unit Operator Name Role Phone KAVON ROSENBERG, KARLY Primary Care Provider [phone] Reason for Visit and Chief Complaint The Chief Complaint is: RM 1. PRE OP FOR LT KNEE REPLACEMENT ON 06/[address] DESHPANDE. IF SHE HAS TO HAVE A STRESS TEST SHE DOES NOT WANT TO DO THE CHEMICAL ONE, HAD TO DO THAT LAST TIME & SHEDOESNT THINK THAT HER HEART HAS PUMPED RIGHT SINCE. ALSO HAS A MOLE UNDER RT BREAST SHE WANTS CUT OFF, RIGHT WHERE BRA RUBS. NOTICED A SMALL WHITE STRING THING, LIKE A WORM, IN HER BM 2 X IN THE LASTMO, COULDNT TELL IF IT WAS MOVING OR NOT Problems Includes: Problems addressed during this encounter and other active Problems All Visits Onset Date Resolved Date Provider Condition S tatus OSTEOPOROSIS NEC 11/21/2008 KARLY JACOBSON MD Active Last Documented On 9 12:05PM ; [facility] PERNICIOUS ANEMIA 11/21/2008 KARLY JACOBSON MD Active Last Documented On 9 12:05PM ; [facility] Plan of Treatment - BENIGN SKIN NEOPLASM - Last Documented On 05/26/2010 11:04PM ; [facility] In office procedures/*Family Practice: Shave Lesion Trunk Arms Legs .5cm or Less - Last Documented On 05/26/2010 11:04PM ; [facility] ? DIARRHEALab: Ordered labs - Last Documented On 05/26/2010 11:04PM ; [facility] ? OTHERRadiology/*MAMMOGRAM: Mammogram - Last Documented On 05/26/2010 11:04PM ; [facility] ? PREOP CARDIOVSCLR EXAMIn office procedures/*Family Practice: ElectrocardiogramLab: Comp Metabolic PanelLab: Lipid PanelLab: CBC w/ DIFF - Last Documented On 05/26/2010 11:04PM ; [facility] Pending Tests Order Diagnosis Results Due Ordering P rovider Lab Comp Metabolic Panel 05/26/10 JULIET JACOBSON MD Last Documented On 0 4:47PM ; [facility] Lab Lipid Panel 05/26/10 KARLY ERWIN MD Last Documented On 0 4:47PM ; [facility] Lab CBC w/ DIFF 05/26/10 KARLY ERWIN MD Last Documented On 0 4:47PM ; [facility] Lab Ordered labs 05/26/10 KARLY METZ MD Last Documented On 0 2:54PM ; [facility] Radiology @ other - *MAMMOGRAPHY Mammogram 09/06 KARLY JACOBSON MD Last Documented On 0 10:15AM ; [facility] In office procedures - *Family Practice Electrocardiogram PREOP CARDIOVSCLR EXAM 06/09/10 KARLY JACOBSON MD Last Documented On 0 9:29AM ; [facility] In office procedures - *Family Practice Shave Lesion Trunk Arms Legs .5cm or Less BENIGN NEOPLASM SKIN NOS 06/09/10 KARLY JACOBSON MD Last Documented On 0 11:02PM ; [facility] Assessments Includes: Assessments from this encounter Findings - Diarrhea - Last Documented On 05/26/2010 11:04PM ; [facility] - Benign skin neoplasm - Last Documented On 05/26/2010 11:04PM ; [facility] - Pre-op cardiovascular exam - Last Documented On 05/26/2010 11:04PM ; [facility] Medical Equipment - Implanted Devices Includes: Current Devices No Medical Equipment Recorded Medications Includes: Medications discussed during this encounter and other current Medications Past Medications on file Ambien CR 6.25 MG OR TBCR 07/29/2009 - 08/02/2009 Prov ider: KARLY JACOBSON MD Diagnosis: #4 DISPENSED Last Documented On 9 9:29PM By KARLY JACOBSON MD ; [facility] Medications Administered Includes: Administered Medications from this encounter No Administered Medications Recorded Vital Signs Includes: Vital Signs from this encounter Vital Name 05/26/2010 08:30A Blood Pressure Sitting L 112/72 BP Cuff Size Regular Pulse Rate-Sitting (bpm) 78 Pulse Rhythm Regular Respiration Rate (breaths/min) 18 Temp-Oral (F) 98.6 Weight (lb) 164 Last Documented: On 05/26/2010 8:54AM ; [facility] Results Includes: Results discussed during this encounter No Results Recorded For Specified Dates History of Present Illness Includes: History of Present Illness from this encounter HPI DEBRA OMALLEY is a 65 year old female. - Gastrointestinal symptoms WORMS IN STOOL?. - Skin symptoms TAG UNDER RT BREAST TO BE REMOVED. - No systemic symptoms - No cardiovascular symptoms - and No chest pain or discomfort - No pulmonary symptoms - and No dyspnea - No musculoskeletal symptoms Social History Description Last Updated Not smoking 03/12/2010 Last Documented On 0 8:46AM ; [facility] Currently 11/21/2008 Last Documented On 0 8:46AM ; [facility] No consumption of alcohol 11/21/2008 Last Documented On 0 8:46AM ; [facility] No tobacco use 11/21/2008 Last Documented On 0 8:46AM ; [facility] Not using drugs 11/21/2008 Last Documented On 0 8:46AM ; [facility] Smoking Status Unknown Procedures and Surgical History Includes: Procedures from this encounter Procedures Code Diagnosis Performing Provider Service L ocation Service Date risks, benefits, and limitations discussed and understood INFLUENZA INJECTION PAPERWORK FILLED OUT AND DISCUSSED Last Documented On 0 10:56PM ; [facility] risks, benefits, and limitat ions discussed and understood - patient wishes to proceed Last Documented On 0 10:56PM ; [facility] Surgical History Last Updated History of hysterectomy 11/21/2008 Last Documented On 0 8:46AM ; [facility] Medical History Includes: Medical History addressed during this encounter Description Last Updated Not taking OTC medications 03/12/2010 Last Documented On 0 8:46AM ; [facility] History of arthritis 11/21/2008 Last Documented On 0 8:46AM ; [facility] Family History Includes: Family History addressed during this encounter Description Last Updated Family history of diabetes mellitus 04/2009 Last Documented On 0 8:46AM ; [facility] Heart disease 11/21/2008 Last Documented On 0 8:46AM ; [facility] Review of Systems Includes: Review of Systems from this encounter No Review of Systems Recorded Mental Status Includes: Mental Status from this encounter Description The memory was unimpaired Judgement was not impaired Functional Status Includes: Functional Status from this encounter No Functional Status Recorded Physical Exam Includes: Physical Exam from this encounter Immunizations Includes: Immunizations addressed during this encounter Vaccine Dose # Date Site Reaction(s) Status Source Influenza (Quadrivalent)36 mo.& older PF 0.5ml (SD) 1 05/26/2010 Left Arm Complete (Administered) [facility] Last Documented On 0 9:57AM ; [facility] Allergies Includes: Active Allergies No Known Allergies Encounters Encounter Provider Location Date Check-In Time Check-Out Time Diagnosis PRE-OP EXAM KARLY JACOBSON MD [facility] 010 8:24AM 9:57AM Benign Skin Neoplasm,Pre-op Cardiovascular Exam,Diarrhea Insurance Includes: Active Insurance Policies Plan Name Member ID Group # Subscriber Relationship Effect micha Dates 1 - [employer] [id number] ROSALINA OMALLEY Clinical Notes Includes: Clinical Notes from this encounter No Clinical Notes Recorded
--- OUTSIDE RECORDS SUMMARY | 2024-09-11 14:11 | XMS_ITS | Clinical Summary ---
Author Organization [facility] Address [address] [place] [id number] Care Team Providers Care Cooler Worker Name Role Phone Jorge Alberto Ng MD Primary Care Provider [phone] Allergies No known active allergies Medications levothyroxine [...] Diagnosed Date Sensorineural hearing loss, bilateral 11/20/2020 Surgical History Surgery Date Site/Laterality Comments KNEE ARTHROSCOPY CHOLECYSTECTOMY HYSTERECTOMY Medical History Medical History Date Comments Anxiety Diabetes (HCC) Sinusitis Thyroid disease Family History Medical History Relation Name Comments Diabetes Brother Diabetes Father Cancer Mother Cancer Sister Relation Name Status Comments Brother Father Mother Sister Social History Tobacco Use Types Packs/Day Years [...] on file 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
--- OUTSIDE RECORDS SUMMARY | 2024-09-11 14:11 | XMS_ITS | Clinical Summary ---
Author Organization [facility] Address [address] [place] [address] Phone Care Team Providers Care Corrosion Control Engineer Name Role Phone Unavailable Primary Care Provider Unavailabl e Allergies No known active allergies Medications acetaminophen (TYLENOL) 325 mg tablet Take 650 mg by mouth every 4 hours as needed. Active glimepiride (AMARYL) 1 mg tablet Take 1 mg by mouth daily Pt decided to quit taking, is not monitoring glucose because she lost the machine. 8 Active levothyroxine 112 mcg tablet Take 1 Tablet (112 mcg) by mouth daily senior financial analyst. 30 Tablet 3 8 Active HYDROcodone-anish taminophen (NORCO) 5-325 mg tablet Take 1 Tablet by mouth every 6 hours as needed for Pain, Moderate. Max Daily Amount: 4 Tablets 25 Tablet 8 Active Social History Tobacco Use Types Packs/Day Years Used Date Smoking Tobacco: Never Smokeless Tobacco: Never Alcohol Use Standard Drinks/Week Comments No 0 (1 standard drink = 0.6 oz pur e alcohol) Comments Unknown Sex and Gender Information Value Date Recorded Sex Assigned at Not on file Legal Sex Female 11:43 AM CDT Gender Identity Not on file Sexual Orientation Not on file Last Filed Vital Signs Vital Sign Reading Time Taken Comments Blood Pressure 106/64 03/25/2018 8:11 AM CDT Pulse 65 03/25/2018 8:11 AM CDT Temperature 36.3 ??C (97.4 ??F) 03/25/2018 8:11 AM CD T Respiratory Rate 18 03/25/2018 8:11 AM CDT Oxygen Saturation 95% 03/25/2018 8:12 AM CDT Inhaled Oxygen Concentration - - Weight 73.6 kg (162 lb 3.2 oz) 03/24/2018 5:33 A M CDT Height - - Body Mass Index - - Plan of Treatment Health Maintenance Due Date Last Done Comments ZOSTER VACCINE (1 of 2) 1997 OSTEOPOROSIS SCREENING 2012 PNEUMOCOCCAL VACCINE 65+ YEARS (2 of 2 - PPSV23) 09/1909/19/2017 RSV VACCINE (60+ or ) (1 - 1-dose 75+ series) 2022 INFLUENZA VACCINE (#1) 2024 08/15/2012 DTAP/TDAP/TD VACCINES (2 - Td or Tdap) 11/26/2027 Insurance [employer] CHOICE POS II Advance Directives For more information, please contact: [phone] * Full Code (Latest Code Status on File) Date Activated Date Inactivated Comments 03/24/2018 10:42 AM 03/25/2018 12:07 PM * Full Code Date Activated Date Inactivated Comments 03/24/2018 6:52 AM 03/24/2018 10:42 AM * Full Code Date Activated Date Inactivated Comments 03/24/2018 5:55 AM 03/24/2018 6:52 AM
--- OUTSIDE RECORDS SUMMARY | 2024-09-11 14:11 | XMS_ITS | Clinical Summary ---
Author Organization [facility] Address [facility] [facility] [place] [address] [place] [address] Care Team Providers Care Hand Sewer Name Role Phone Sukumar Fitch MD Primary Care Provider [phone] Allergies No known active allergies Medications aspirin 81 MG chewable tablet Chew 1 tablet (81 mg total) by mouth daily. Active levothyroxine (SYNTHROID) 137 MCG tablet Take 1 tablet (137 mcg total) by mouth daily. 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 04/28/2023 Varicose veins with pain 04/28/2023 Sensorineural hearing loss, bilateral 11/20/2020 GERD (gastroesophageal reflux disease) 8 Right knee pain 08/28/2015 Pernicious anemia 11/21/2008 Resolved Problems Problem Noted Date Diagnosed Date Resolved Date Colon cancer screening 12/08/201504/23 Immunizations Name Administration Dates Next Due Influenza (Generic) 08/15/2012 Influenza Adult (Generic) 05/26/2010 Pneumococcal (Pneumovax 23) 02/06/2021 Pneumococcal (Prevnar 13) 09/19/2017 Tdap (Generic) 11/25/2017 Family History Medical History Relation Comments DISORDER OF THYROID Father Diabetes Father Hypertension Father Cancer Mother Relation Status Comments Father Mother Social History Tobacco Use Types Packs/Day Years Used Date Smoking Tobacco: Never Smokeless Tobacco: Never Tobacco Cessation:Counseling Given: Not Answered Alcohol Use Standard Drinks/Week Comments Never 0 (1 standard drink = 0.6 oz pur e alcohol) Comments No Sex and Gender Information Value Date Recorded Sex Assigned at Not on file Legal Sex Female 8:15 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 ASSISTANT MANAGER Gender Identity Not on file Sexual Orientation Not on file Last Filed Vital Signs Vital Sign Reading Time Taken Comments Blood Pressure 144/60 03/28/2024 1:42 PM CDT Pulse 74 03/28/2024 1:42 PM CDT Temperature 36.2 ??C (97.2 ??F) 08/12/2023 2:25 PM CS T Respiratory Rate 18 08/12/2023 2:25 PM APARTMENT ASSISTANT MANAGER Oxygen Saturation 98% 08/12/2023 2:25 PM APARTMENT ASSISTANT MANAGER Inhaled Oxygen Concentration - - Weight 71.2 kg (157 lb) 03/28/2024 1:42 PM CDT Height 162.6 cm (5' 4 ) 03/28/2024 1:42 PM CDT Body Mass Index 26.95 03/28/2024 1:42 PM CDT Plan of Treatment Health Maintenance Due Date Last Done Comments Hepatitis C 1965 Zoster Vaccines (1 of 2) 1997 Annual Medicare Wellness Visit 2012 RSV Immunization or 60+ Years (1 - 1-dose 75+ series) 2022 COVID-19 Vaccine ( - 2023-2 5 season) 2024 Influenza Adult (#1) 2024 08/15/2012, 05/26/2010 DTaP, Tdap and Td Vaccines ( 2 - Td or Tdap) 11/26/2027 11/25/2017 Pneumococcal Vaccine: 65+ Years Completed 02/06/2021, 09/19/2017 Dexa Scan (General) Completed 09/25/2021, 09/25/2021 Meningococcal B Vaccine Aged Out No l onger eligible based on patient's age to complete this topic Meningococcal Vaccine Aged Out No asnjuana annalee eligible based on patient's age to complete this topic RSV Immunizations Under 20 Months Aged Out No longer eligible b ased on patient's age to complete this topic Insurance [facility] Care Teams Hand Sewer Relationship Specialty Start Date End Date Sukumar Fitch MD [address] [place] [address] PCP - General FAMILY PRACTICE 07/15/22
--- OUTSIDE RECORDS SUMMARY | 2024-09-11 14:11 | XMS_ITS | Encounter Summary ---
Author Organization [facility] Address [address] [place] [address] Phone Care Team Providers Care Public Transportation Inspector Name Role Phone Jorge Alberto Ng MD Primary Care Provider [phone] Sukumar Fitch MD Primary Care Provider [phone] Reason for Visit * Reason Comments Medication Refill Encounter Details Date Type Department Care Team (Late st Contact Info) Description 03/08/2021 [facility] [address] [place] [address] Jorge Alberto Ng MD [address] [address] Medication Refill Social History Tobacco Use Types Packs/Day Years Used Date Smoking Tobacco: Never Smokeless Tobacco: Never Alcohol Use Standard Drinks/Week Comments No 0 (1 standard drink = 0.6 oz pur e alcohol) PHQ-2 Answer Date Recorded Total Score - Questions 1-9 0 08/15 Sexually Active Control Partners Comments Not Currently Comments No Sex and Gender Information Value Date Recorded Sex Assigned at Not on file Legal Sex Female 7:34 PM CDT Gender Identity Not on file Sexual Orientation Not on file Occupation Industry Job Start Date Job End Date 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 No / Unsure 03/02/2021 1:30 PM CDT documented as of this encounter Miscellaneous Notes * Telephone Encounter - Jorge Alberto Ng MD - 03/09/2021 12:13 PM CDT Prescription approved. Please call in * Telephone Encounter - Monie Stewart RN - 03/09/2021 12:07 PM CDT Medication failed the protocol, provider to review and approve the medication order if appropriate. Requested Prescriptions Pending Prescriptions Disp Refills levothyroxine (SYNTHROID) 175 MCG Tablet [Pharmacy Med Name: LEVOTHYROXINE 175 MCG TABLET] 90 Tablet 2 Sig: TAKE 1 TABLET BY MOUTH EVERY DAY Thyroid Hormones Protocol Failed - 03/08/2021 7:44 AM Failed - Normal TSH in past 12 months TSH Date Value Ref Range Status 02/06/2021 <=0.010 (L) 0.270 - 4.200 mIU/L Final Passed - Visit with relevant provider in past 12 months or upcoming 90 days Recent Visits Date Type Provider Dept 02/06/21 Office Visit Jorge Alberto Ng MD [facility] 10/03/20 Office Visit Jorge Alberto Ng MD [facility] 09/02/20 Office Visit Jorge Alberto Ng MD [facility] 04/01/20 Office Visit Jorge Alberto Ng MD [facility] Showing recent visits within past 365 days and meeting all other requirements Future Appointments No visits were found meeting these conditions. Showing future appointments within next 90 days and meeting all other requirements glimepiride (AMARYL) 1 MG Tablet [Pharmacy Med Name: GLIMEPIRIDE 1 MG TABLET] 90 Tablet 2 Sig: TAKE 1 TABLET BY MOUTH EVERY MORNING WITH FOOD Sulfonylureas Protocol Passed - 03/08/2021 7:44 AM Passed - Visit with relevant provider in past 6 months or upcoming 90 days Recent Visits Date Type Provider Dept 02/06/21 Office Visit Jorge Alberto Ng MD [facility] 10/03/20 Office Visit Jorge Alberto Ng MD [facility] Showing recent visits within past 182 days and meeting all other requirements Future Appointments No visits were found meeting these conditions. Showing future appointments within next 90 days and meeting all other requirements Passed - HgA1C on record in past 6 months HGB-A1C Date Value Ref Range Status 02/06/2021 7.1 (H) 4.0 - 6.0 % Final Passed - GFR on record in past 6 months GFR, EST. NONAFRICAN Date Value Ref Range Status 02/06/2021 >60 >=60 Final documented in this encounter Plan of Treatment Not on file documented as of this encounter Visit Diagnoses Diagnosis Type 2 diabetes mellitus without complication, without long-term current use of insulin (HCC) documented in this encounter Additional Health Concerns Assessment Noted Time PHQ-9 Depression Total Score: 0 09/02/19 21 10:33 AM LEVEL VIAL SETTER documented as of this encounter Care Teams Public Transportation Inspector Relationship Specialty Start Date End Date Jorge Alberto Ng MD [address] [address] PCP - General Family Medicine 07/02/15 11/18/22 Sukumar Fitch MD [address] [place] [address] PCP - General Family Medicine 11/19/22 documented as of this encounter
--- OUTSIDE RECORDS SUMMARY | 2024-09-11 14:11 | XMS_ITS | Encounter Summary ---
Author Organization [facility] Address [address] [place] 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 Please call in * Telephone Encounter - Sachi Min RN - 11/28/2020 3:01 PM CDT Medication failed the protocol, provider to review and approve the medication order if appropriate. Requested Prescriptions Pending Prescriptions Disp Refills Blood Glucose Monitoring Suppl (Accu-Chek Guide Me) w/Device Kit [Pharmacy Med Name: ACCU-CHEK GUIDE ME GLUCOSE MTR] 0 Sig: USE TO TEST BLOOD SUGAR ONCE DAILY [facility]: Diabetes Testing Supplies Passed - 11/28/2020 2:13 PM Passed - Valid encounter within last 12 months Past Office Visits Recent Outpatient Visits 1 month ago Acquired hypothyroidism [facility] Jorge Alberto Garcia MD 2 months ago Right elbow pain [facility] Jorge Alberto Garcia MD 8 months ago Acquired hypothyroidism [facility] Jorge Alberto Garcia MD 1 year ago Anal lesion [facility] Jorge Alberto Garcia MD 2 years ago Goiter [facility] January, Upcoming Appointments Future Appointments In 2 months Lab, [facility], [facility] In 2 months Jorge Alberto Ng MD [facility] PRECISION AGRICULTURE SPECIALIST - Recent and Past Visits Recent Visits Date Type Provider Dept 10/03/20 Office Visit Jorge Alberto Ng MD [facility] 09/02/20 Office Visit Jorge Alberto Ng MD [facility] 04/01/20 Office Visit Jorge Ablerto Ng MD [facility] Showing recent visits within past 460 days with a meds authorizing provider and meeting all other requirements Future Appointments Date Type Provider Dept 02/06/21 Appointment Jorge Alberto Ng MD [facility] Showing future appointments within next 90 days with a meds authorizing provider and meeting all other requirements documented in this encounter Plan of Treatment Not on file documented as of this encounter Visit Diagnoses Not on filedocumented in this encounter Additional Health Concerns Assessment Noted Time PHQ-9 Depression Total Score: 0 09/02/19 21 10:33 AM PATIENT SUPPORT ASSISTANT documented as of this encounter Care Teams Rn Clinical Quality Relationship Specialty Start Date End Date Jorge Alberto Ng MD [address] [address] PCP - General Family Medicine 07/02/15 11/18/22 Sukumar Fitch MD [address] [place] [id number] PCP - General Family Medicine 11/19/22 documented as of this encounter
--- OUTSIDE RECORDS SUMMARY | 2024-09-11 14:11 | XMS_ITS | Encounter Summary ---
Author Organization [facility] Address [address] 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 Not on file Not on file Not on file documented as of this encounter Plan of Treatment Not on file documented as of this encounter Visit Diagnoses Diagnosis Age-related osteoporosis without current pathological fracture Senile osteoporosis documented in this encounter Additional Health Concerns Assessment Noted Time PHQ-9 Depression Total Score: 0 09/02/19 21 10:33 AM BIOINFORMATICS SUPPORT SPECIALIST documented as of this encounter Care Teams Night Custodian Relationship Specialty Start Date End Date Sukumar Fitch MD [address] [place] [address] PCP - General Family Medicine 11/19/22 documented as of this encounter
--- OUTSIDE RECORDS SUMMARY | 2024-09-11 14:11 | XMS_ITS | Encounter Summary ---
Author Organization [facility] Address [address] 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 file Not on file Not on file documented as of this encounter Plan of Treatment Not on file documented as of this encounter Visit Diagnoses Diagnosis Type 2 diabetes mellitus without complication, without long-term current use of insulin (HCC) documented in this encounter Additional Health Concerns Assessment Noted Time PHQ-9 Depression Total Score: 0 09/02/19 21 10:33 AM ALUMINUM MOLDER documented as of this encounter Care Teams Cash Accounting Clerk Relationship Specialty Start Date End Date Sukumar Fitch MD [address] [place] [address] PCP - General Family Medicine 11/19/22 documented as of this encounter
--- OUTSIDE RECORDS SUMMARY | 2024-09-11 14:11 | XMS_ITS | Encounter Summary ---
Author Organization [facility] Address [facility] [place] [address] [place] [address] Care Team Providers Care Doping Supervisor Name Role Phone Sukumar Fitch MD Primary Care Provider [phone] Reason for Referral * Surgical (Routine) - Closed Specialty Diagnoses / Procedures Referred By Erica guidry Referred To Contact Diagnoses Varicose veins of lower extremity with pain, right Procedures Case request operating room: STAB PHLEBECTOMY Justin Puentes MD [address] [address] Phone: tel: fax: Referral ID Status Reason Start Date Expiration Date Visits Re quested Visits Authorized [id number] Closed 06/21/2023 06/21/2024 1 1 TECH * Surgical (Routine) - Closed Specialty Diagnoses / Procedures Referred By Erica guidry Referred To Contact Diagnoses Varicose veins of lower extremity with pain, left Procedures Case request operating room: STAB PHLEBECTOMY Justin Puentes MD [address] [address] Phone: tel: fax: Referral ID Status Reason Start Date Expiration Date Visits Re quested Visits Authorized [id number] Closed 06/21/2023 06/21/2024 1 1 TECH Encounter Details Date Type Department Care Team (Late st Contact Info) Description 06/21/2023 Prep for Procedure [facility], [place] [address] [place] [address] Justin Puentes MD Three [facility]. [facility] [address] [place] [address] Social History Tobacco Use Types Packs/Day Years Used Date Smoking Tobacco: Never Smokeless Tobacco: Never Alcohol Use Standard Drinks/Week Comments Never 0 (1 standard drink = 0.6 oz pur e alcohol) Comments Unknown Sex and Gender Information Value Date Recorded Sex Assigned at Not on file Legal Sex Female 8:15 AM XRAY TECH Gender Identity Not on file Sexual Orientation Not on file documented as of this encounter Plan of Treatment Scheduled Orders Name Type Priority Associated Diagnoses Orde r Schedule Case request operating room: STAB PHLEBECTOMY Case Request Routine Varicose veins of lower extremity with pain, left Once for 1 Occurrences starting 06/21/2023 until 06/21/2023 Case request operating room: STAB PHLEBECTOMY Case Request Routine Varicose veins of lower extremity with pain, right Once for 1 Occurrences starting 06/21/2023 until 06/21/2023 documented as of this encounter Results * (ABNORMAL) COMPREHENSIVE METABOLIC PANEL (08/12/2023 9:15 AM XRAY TECH) GLUCOSE 167(H) 70 - 99 MG/DL 08/12/2023 9:54 AM [facility] BUN 20(H) 7 - 18 MG/DL 08/12/2023 9:54 AM [facility] CREATININE S/P/B 0.80 0.55 - 1.02 MG/DL 08/12/2023 9:54 AM [facility] SODIUM S/P/B 140 136 - 145 MMOL/L 08/12/2023 9:54 AM [facility] POTASSIUM S/P/B 3.6 3.5 - 5.1 MMOL/L 08/12/2023 9:54 AM [facility] CHLORIDE S/P/B 110(H) 100 - 108 MMOL/L 08/12/2023 9:54 AM [facility] CO2 27.9 21 - 32 MMOL/L 08/12/2023 9:54 AM [facility] CALCIUM S/P/B 9.3 8.5 - 10.1 MG/DL 08/12/2023 9:54 AM [facility] BILIRUBIN TOTAL S/P/B 0.6 0.2 - 1.2 MG/DL 08/12/2023 9:54 AM [facility] Comment: THIS ASSAY IS NOT RECOMMENDED FOR PATIENTS UNDERGOING TREATMENT WITH ELTROMBOPAG DUE TO THE POTENTIAL FOR FALSELY ELEVATED RESULTS. TOTAL PROTEIN S/P/B 7.0 6.4 - 8.2 G/DL 08/12/2023 9:54 AM [facility] ALBUMIN S/P/B 3.3(L) 3.4 - 5.0 G/DL 08/12/2023 9:54 AM [facility] AST 13(L) 15 - 37 U/L 08/12/2023 9:54 AM [facility] ALT 21 14 - 55 U/L 08/12/2023 9:54 AM [facility] ALKALINE PHOSPHATASE S/P/B 97 50 - 136 U/L 08/12/2023 9:54 AM [facility] ANION GAP 2.1(L) 5 - 15 MMOL/L 08/12/2023 9:54 AM [facility] BUN CREATININE RATIO 24.9 6 - 26 08/12/2023 9:54 AM [facility] A/G RATIO 0.9(L) 1.0 - 2.0 RATIO 08/12/2023 9:54 AM [facility] GFR ESTIMATE 76(L) >90 ML/MIN/1.7 3 M2 08/12/2023 9:54 AM [facility] Comment: NOTE: eGFR is not calculated for patients <18 years of age. This is an estimated GFR calculation using the new CKD EPI creatinine equation without race and so does not require a correction factor for race. This estimated GFR should not be used for calculating drug doses. 08/12/2023 9:1 5 AM XRAY TECH Justin Puentes MD LABORATORY Final Result [facility] [address] [place] [address], [place] [phone] * CBC W/DIFF AUTOMATED (08/12/2023 9:15 AM XRAY TECH) WBC 5.5 4.5 - 11.0 x10'3/uL 08/12/2023 9:43 AM [facility] RBC 5.21 4.20 - 5.40 x10'6/uL 08/12/2023 9:43 AM [facility] HGB 14.3 12.0 - 16.0 G/DL 08/12/2023 9:43 AM [facility] HCT 44.5 38.0 - 48.0 % 08/12/2023 9:43 AM [facility] MCV 85.4 81.0 - 99.0 FL 08/12/2023 9:43 AM [facility] MCH 27.4 27.0 - 31.0 PG 08/12/2023 9:43 AM [facility] MCHC 32.1 32.0 - 36.0 G/DL 08/12/2023 9:43 AM [facility] RDW 12.5 11.5 - 14.5 % 08/12/2023 9:43 AM [facility] PLT 306 130 - 400 x10'3/uL 08/12/2023 9:43 AM [facility] MPV 9.9 9.3 - 12.2 FL 08/12/2023 9:43 AM [facility] DIFFERENTIAL TYPE AUTOMATED DIFFERENTIAL 08/12/2023 9:43 AM [facility] NEUTROPHILS % 57.4 % 08/12/2023 9:43 AM [facility] LYMPHOCYTES % 29.4 % 08/12/2023 9:43 AM [facility] MONOCYTES % 8.7 % 08/12/2023 9:43 AM [facility] EOSINOPHILS 3.8 % 08/12/2023 9:43 AM [facility] BASOPHILS 0.5 % 08/12/2023 9:43 AM [facility] IMMATURE GRANS % 0.2 % 08/12/20 9:43 AM [facility] ABS. NEUTROPHILS TOTAL 3.18 1.80 - 7.70 x10'3/uL 08/12/2023 9:43 AM [facility] ABS. LYMPHOCYTES 1.63 1.00 - 4.80 x10'3/uL 08/12/2023 9:43 AM [facility] ABS. MONOCYTES 0.48 0.24 - 0.86 x10'3/uL 08/12/2023 9:43 AM [facility] ABS. EOSINOPHILS 0.21 0.04 - 0.36 x10'3/uL 08/12/2023 9:43 AM [facility] ABS. BASOPHILS 0.03 0.01 - 0.08 x10'3/uL 08/12/2023 9:43 AM [facility] ABS. IMMATURE GRANULOCYTES 0.01 0.00 - 0.49 x10'3/uL 08/12/2023 9:43 AM XRAY TECH [facility] 08/12/2023 9:15 AM XRAY TECH us Justin Puentes MD LABORATORY Final Result [facility] [address] [place] [address], documented in this encounter Visit Diagnoses Diagnosis Varicose veins of lower extremity with pain, left- Primary Varicose veins of lower extremity with pain, right documented in this encounter Care Teams Doping Supervisor Relationship Specialty Start Date End Date Sukumar Fitch MD [address] [place] [id number] PCP - General FAMILY PRACTICE 07/15/22 documented as of this encounter
--- OUTSIDE RECORDS SUMMARY | 2024-09-11 14:11 | XMS_ITS | Clinical Summary ---
Author Organization [facility] Address [address] [place] [address] Phone Care Team Providers Care Customer Account Manager Name Role Phone KAVON ROSENBERG, KARLY Primary Care Provider [phone] Reason for Visit and Chief Complaint The Chief Complaint is: left ear pain, feels plugged. Bothering her for 3 weeks. ~ ~OTC: none ~Meds: none Problems Includes: Problems addressed during this encounter and other active Problems All Visits Onset Date Resolved Date Provider Condition S tatus OSTEOPOROSIS NEC 11/21/2008 KARLY JACOBSON MD Active Last Documented On 9 12:05PM ; [facility] PERNICIOUS ANEMIA 11/21/2008 KARLY JACOBSON MD Active Last Documented On 9 12:05PM ; [facility] Plan of Treatment - WARTS COMMON - Last Documented On 03/12/2010 5:09PM ; [facility] In office procedures/*Family Practice: Cryo, Lesion 1 - Last Documented On 03/12/2010 5:09PM ; [facility] ? CERUMEN IMPACTIONIn office procedures/*Family Practice: Cerumen (Ear Wax) Removal - Last Documented On 03/12/2010 5:09PM ; [facility] - Follow-up visit as needed with an office visit. - Last Documented On 03/12/2010 5:09PM ; [facility] Pending Tests Order Diagnosis Results Due Ordering P congvider In office procedures - *Family Practice Cerumen (Ear Wax) Removal IMPACTED CERUMEN 03/26/10 MATTHEW CHILDS PA-C Last Documented On 0 5:00PM ; [facility] In office procedures - *Family Practice Cryo, Lesion 1 Ot Specfd Viral Warts 03/26/10 MATTHEW CHILDS PA-C Last Documented On 0 5:00PM ; [facility] Assessments Includes: Assessments from this encounter Findings - Cerumen impaction - Last Documented On 03/12/2010 5:09PM ; [facility] - Common warts - Last Documented On 03/12/2010 5:09PM ; [facility] Medical Equipment - Implanted Devices Includes: Current Devices No Medical Equipment Recorded Medications Includes: Medications discussed during this encounter and other current Medications Past Medications on file Ambien CR 6.25 MG OR TBCR 07/29/2009 - 08/02/2009 Prov ider: KARLY JACOBSON MD Diagnosis: #4 DISPENSED Last Documented On 9 9:29PM By KARLY JACOBSON MD ; [facility] Medications Administered Includes: Administered Medications from this encounter No Administered Medications Recorded Vital Signs Includes: Vital Signs from this encounter Vital Name 03/12/2010 04:30P Blood Pressure Sitting R 124/90 BP Cuff Size Regular Respiration Rate (breaths/min) 18 Temp-Oral (F) 98.3 Weight (lb) 163 Last Documented: On 03/12/2010 4:42PM ; [facility] Results Includes: Results discussed during this encounter No Results Recorded For Specified Dates History of Present Illness Includes: History of Present Illness from this encounter MARISSA OMALLEY is a 64 year old female. - Feeling fine - No fever - Headache thinks from working heat - No eye symptoms - Earache in right ear - In left ear cant hear out of left ear - The ears feel pressured on the left - No nasal discharge - No postnasal drip - No nasal passage blockage - No sore throat - No cough - Normal appetite - No vomiting - No diarrhea - No dizziness - No lightheadedness - Skin lesion: growth on left side of chest, irriates when washing and lotion each day Social History Description Last Updated Not smoking 03/12/2010 Last Documented On 0 5:09PM ; [facility] Currently 11/21/2008 Last Documented On 0 4:45PM ; [facility] No consumption of alcohol 11/21/2008 Last Documented On 0 4:45PM ; [facility] No tobacco use 11/21/2008 Last Documented On 0 4:45PM ; [facility] Not using drugs 11/21/2008 Last Documented On 0 4:45PM ; [facility] Smoking Status Unknown Procedures and Surgical History Surgical History Last Updated History of hysterectomy 11/21/2008 Last Documented On 0 4:45PM ; [facility] Medical History Includes: Medical History addressed during this encounter Description Last Updated Not taking OTC medications 03/12/2010 Last Documented On 0 5:09PM ; [facility] History of arthritis 11/21/2008 Last Documented On 0 4:45PM ; [facility] Family History Includes: Family History addressed during this encounter No Family History Recorded Review of Systems Includes: Review of Systems from this encounter Systemic: No systemic symptoms. Head: No head symptoms. Eyes: No eye symptoms. Otolaryngeal: Earache. Pulmonary: No pulmonary symptoms. Gastrointestinal: No gastrointestinal symptoms. Skin: No skin symptoms. Mental Status Includes: Mental Status from this encounter No Mental Status Recorded Functional Status Includes: Functional Status from this encounter No Functional Status Recorded Physical Exam Includes: Physical Exam from this encounter Allergies Includes: Active Allergies No Known Allergies Encounters Encounter Provider Location Date Check-In Time Check-Out Time Diagnosis SICK VISIT MATTHEW CHILDS PA-C [facility] 03/12/20 10 4:33PM 5:09PM Cerumen Impaction,War ts Common Insurance Includes: Active Insurance Policies Plan Name Member ID Group # Subscriber Relationship Effect micha Dates 1 - [employer] [id number] LYSSA ROSALINA M Clinical Notes Includes: Clinical Notes from this encounter No Clinical Notes Recorded
--- OUTSIDE RECORDS SUMMARY | 2024-09-11 14:11 | XMS_ITS | Clinical Summary ---
Author Organization [facility] Address [address] [place] [address] Phone Care Team Providers Care Roller Cleaner Name Role Phone KAVON ROSENBERG, KARLY Primary Care Provider [phone] Reason for Visit and Chief Complaint * PHONE CALL Problems Includes: Problems addressed during this encounter and other active Problems All Visits Onset Date Resolved Date Provider Condition S tatus OSTEOPOROSIS NEC 11/21/2008 KARLY JACOBSON MD Active Last Documented On 9 12:05PM ; [facility] PERNICIOUS ANEMIA 11/21/2008 KARLY JACOBSON MD Active Last Documented On 9 12:05PM ; [facility] Plan of Treatment - OTHER - Last Documented On 07/29/2009 4:39PM ; [facility] *Phone Call WOULDS SHE LIKE TO TRY AMBIEN CR SAMPLES - Last Documented On 07/29/2009 4:39PM ; [facility] PT WOULD LIKE TO TRY SAMPLES, 6.25 MG DISPENSED #4. 07-29-09 - Last Documented On 07/29/2009 4:39PM ; [facility] Assessments Includes: Assessments from this encounter No Assessments Recorded Medical Equipment - Implanted Devices Includes: Current Devices No Medical Equipment Recorded Medications Includes: Medications discussed during this encounter and other current Medications Past Medications on file Ambien CR 6.25 MG OR TBCR 07/29/2009 - 08/02/2009 Prov ider: KARLY JACOBSON MD Diagnosis: #4 DISPENSED Last Documented On 9 9:29PM By KARLY JACOBSON MD ; [facility] Medications Administered Includes: Administered Medications from this encounter No Administered Medications Recorded Results Includes: Results discussed during this encounter No Results Recorded For Specified Dates History of Present Illness Includes: History of Present Illness from this encounter HPI DEBRA OMALLEY is a 64 year old female. Pharmacy name:[email or web address] location:[place]. Social History Description Last Updated Currently 11/21/2008 Last Documented On 9 2:30PM ; [facility] No consumption of alcohol 11/21/2008 Last Documented On 9 2:30PM ; [facility] No tobacco use 11/21/2008 Last Documented On 9 2:30PM ; [facility] Not using drugs 11/21/2008 Last Documented On 9 2:30PM ; [facility] Smoking Status Unknown Procedures and Surgical History Surgical History Last Updated History of hysterectomy 11/21/2008 Last Documented On 9 2:30PM ; [facility] Medical History Includes: Medical History addressed during this encounter Description Last Updated History of arthritis 11/21/2008 Last Documented On 9 2:30PM ; [facility] Family History Includes: Family History addressed during this encounter Description Last Updated Family history of diabetes mellitus 04/2009 Last Documented On 9 2:30PM ; [facility] Heart disease 11/21/2008 Last Documented On 9 2:30PM ; [facility] Review of Systems Includes: Review of Systems [...] Check-Out Time Diagnosis * PHONE CALL KARLY CORONADO-ANA ROSENBERG [facility] 07/29/20 09 2:31PM 11:59PM Insurance Includes: Active Insurance Policies Plan Name Member ID Group # Subscriber Relationship Effect micha Dates - [id number] ROSALINA OMALLEY M Clinical Notes Includes: Clinical Notes from this encounter No Clinical Notes Recorded
--- OUTSIDE RECORDS SUMMARY | 2024-09-11 14:11 | XMS_ITS ---
Care Plan - [facility] Created on: September 11, 2024 DEBRA OMALLEY : 1945 Sex: Female Author Organization [facility] Address [address] [place] [address] Phone Care Team Providers Care Manager Employment Name Role Phone KARLY JACOBSON MD Primary Care Provider
--- OUTSIDE RECORDS SUMMARY | 2024-09-11 14:11 | XMS_ITS ---
Author Organization [facility] Address [address] [place] [address] Phone Care Team Providers Care Sales Project Engineer Name Role Phone KAVON ROSENBERG, KARLY Primary Care Provider [phone] Problems Includes: Active, inactive, and resolved Problems All Visits Onset Date Resolved Date Provider Condition S tatus OSTEOPOROSIS NEC 11/21/2008 KARLY JACOBSON MD Active Last Documented On 9 12:05PM ; [facility] PERNICIOUS ANEMIA 11/21/2008 KARLY JACOBSON MD Active Last Documented On 9 12:05PM ; [facility] Plan of Treatment Findings Encounter Date Ordered follow-up visit as n eeded with an office visit. SICK VISIT with MATTHEW CHILDS PA-C 03/12/2010 Last Documented On 0 5:09PM ; [facility] Assessments Includes: Assessments for all patient encounters Findings Encounter Date Benign skin neoplasm PRE-OP EXAM with KARLY SANDRA MD 05/26/2010 Last Documented On 0 11:04PM ; [facility] Diarrhea PRE-OP EXAM with KARLY CARROLL MD 05/26/2010 Last Documented On 0 11:04PM ; [facility] Pre-op cardiovascular exam PRE-OP EXAM with JULIET JACOBSON MD 05/26/2010 Last Documented On 0 11:04PM ; [facility] Cerumen impaction SICK VISIT with MATTHEW Lynch 03/12/2010 Last Documented On 0 5:09PM ; [facility] Common warts SICK VISIT with MATTHEW Burgess 03/12/2010 Last Documented On 0 5:09PM ; [facility] Medical Equipment - Implanted Devices Includes: Current and historical Devices No Medical Equipment Recorded Medications Includes: Current and historical Medications Past Medications on file Ambien CR 6.25 MG OR TBCR 07/29/2009 - 08/02/2009 Prov ider: KARLY JACOBSON MD Diagnosis: #4 DISPENSED Last Documented On 9 9:29PM By KARLY JACOBSON MD ; [facility] Medications Administered Includes: Administered Medications in patient's chart No Administered Medications Recorded Results Includes: Results from 09/11/2023 through 09/11/2024 No Results Recorded For Specified Dates History of Present Illness History of Present Illness not supported for this document type No History of Present Illness Recorded Social History Description Last Updated Not smoking 03/12/2010 Last Documented On 0 5:09PM ; [facility] Currently 11/21/2008 Last Documented On 9 12:07PM ; [facility] No consumption of alcohol 11/21/2008 Last Documented On 9 12:07PM ; [facility] No tobacco use 11/21/2008 Last Documented On 9 12:07PM ; [facility] Not using drugs 11/21/2008 Last Documented On 9 12:07PM ; [facility] Smoking Status Unknown Procedures and Surgical History Surgical History Last Updated History of hysterectomy 11/21/2008 Last Documented On 9 12:07PM ; [facility] Medical History Includes: Medical History in patient's chart Description Last Updated Not taking OTC medications 03/12/2010 Last Documented On 0 5:09PM ; [facility] History of arthritis 11/21/2008 Last Documented On 9 12:07PM ; [facility] Family History Includes: Family History in patient's chart Description Last Updated Family history of diabetes mellitus 04/2009 Last Documented On 9 12:07PM ; [facility] Heart disease 11/21/2008 Last Documented On 9 12:07PM ; [facility] Review of Systems Review of Systems not supported for this document type No Review of Systems Recorded Mental Status Description The memory was unimpaired Judgement was not impaired Functional Status No Functional Status Recorded Physical Exam Physical Exam not supported for this document type No Physical Exam Recorded Immunizations Includes: Immunizations in patient's chart Vaccine Dose # Date Site Reaction(s) Status Source Influenza (Quadrivalent)36 mo.& older PF 0.5ml (SD) 1 05/26/2010 Left Arm Complete (Administered) [facility] Last Documented On 0 9:57AM ; [facility] Allergies Includes: Active, inactive, and resolved Allergies No Known Allergies Insurance Includes: Active Insurance Policies Plan Name Member ID Group # Subscriber Relationship Effect micha Dates 1 - [employer] [id number] ROSALINA OMALLEY Clinical Notes Includes: Signed Clinical Notes starting from 09/03/2022 No Clinical Notes Recorded
[2024-09-11 20:08] LABS: Alanine Aminotransferase 21 U/L (6-35); Albumin Level 4.3 g/dL (3.5-5.1); Alkaline Phosphatase 109 U/L (38-126); Anion Gap 9 mmol/L (4-12); Aspartate Amino Transferase 41 U/L (14-36); Bilirubin,Total 0.5 mg/dL (0.2-1.3); Blood Urea Nitrogen 21 mg/dL (7-17); Calcium 9.6 mg/dL (8.4-10.2); Carbon Dioxide 27 mmol/L (22-30); Chloride 105 mmol/L (98-107); Cholesterol 210 mg/dL (0-200); Estimated Glomerular Filt Rate > 60; Glucose 107 mg/dL (65-110); HDL Direct 51 mg/dL; Potassium 4.4 mmol/L (3.4-5.0); Sodium 141 mmol/L (137-145); Triglycerides 92 mg/dL (<150)
[2024-09-11 20:19] LABS: LDL Cholesterol Direct 134 mg/dL
[2024-09-11 20:36] LABS: Thyroid Stimulating Hormone < 0.015 uIU/mL (0.465-4.680)
[2024-09-11 20:54] LABS: Hemoglobin A1C 7.2 % (<5.7)
[2024-09-11 23:08] LABS: Creatinine Urine 100.8 mg/dL
[2024-09-11 23:12] LABS: MALB Creatinine Ratio 6.8 mg/g (0-30); Microalbumin Urine Random 6.9 mg/L (0-16.7)
== END 2024-09-11 13:34 | disposition home or self-care (01) ==
LOC: ANHBWCLAB 13:35
PROVIDERS: PCP Nurse Practitioner Adult Health; Visit Provider Nurse Practitioner Adult Health
DX: E03.9 Hypothyroidism, unspecified (principal); E11.9 Type 2 diabetes mellitus without complications
CPT/HCPCS: 36415; 80053; 80061; 82043; 82565; 83036; 84443

== ENCOUNTER 2024-10-22 13:55 | Outpatient (CLI) | payer MEDICARE, SELFPAY ==
--- OUTSIDE RECORDS SUMMARY | 2024-10-22 16:08 | XMS_ITS | Clinical Summary ---
Author Organization [facility] Address [address] [place] [address] Phone Care Team Providers Care Gut Snatcher Name Role Phone KAVON ROSENBERG, KARLY Primary Care Provider [phone] Reason for Visit and Chief Complaint The Chief Complaint is: left ear pain, feels plugged. Bothering her for 3 weeks. ~ ~OTC: none ~Meds: none Problems Includes: Problems addressed during this encounter and other active Problems All Visits Onset Date Resolved Date Provider Condition S tatus OSTEOPOROSIS NEC 11/21/2008 KARLY JACOBSON MD Active Last Documented On 9 12:05PM ; [facility] PERNICIOUS ANEMIA 11/21/2008 KARLY JACOBSON MD Active Last Documented On 9 12:05PM ; [facility] Plan of Treatment - WARTS COMMON - Last Documented On 03/12/2010 5:09PM ; [facility] In office procedures/*Family Practice: Cryo, Lesion 1 - Last Documented On 03/12/2010 5:09PM ; [facility] ? CERUMEN IMPACTIONIn office procedures/*Family Practice: Cerumen (Ear Wax) Removal - Last Documented On 03/12/2010 5:09PM ; [facility] - Follow-up visit as needed with an office visit. - Last Documented On 03/12/2010 5:09PM ; [facility] Pending Tests Order Diagnosis Results Due Ordering P congvider In office procedures - *Family Practice Cerumen (Ear Wax) Removal IMPACTED CERUMEN 03/26/10 MATTHEW CHILDS PA-C Last Documented On 0 5:00PM ; [facility] In office procedures - *Family Practice Cryo, Lesion 1 Ot Specfd Viral Warts 03/26/10 MATTHEW CHILDS PA-C Last Documented On 0 5:00PM ; [facility] Assessments Includes: Assessments from this encounter Findings - Cerumen impaction - Last Documented On 03/12/2010 5:09PM ; [facility] - Common warts - Last Documented On 03/12/2010 5:09PM ; [facility] Medical Equipment - Implanted Devices Includes: Current Devices No Medical Equipment Recorded Medications Includes: Medications discussed during this encounter and other current Medications Past Medications on file Ambien CR 6.25 MG OR TBCR 07/29/2009 - 08/02/2009 Prov ider: KARLY JACOBSON MD Diagnosis: #4 DISPENSED Last Documented On 9 9:29PM By KARLY JACOBSON MD ; [facility] Medications Administered Includes: Administered Medications from this encounter No Administered Medications Recorded Vital Signs Includes: Vital Signs from this encounter Vital Name 03/12/2010 04:30P Blood Pressure Sitting R 124/90 BP Cuff Size Regular Respiration Rate (breaths/min) 18 Temp-Oral (F) 98.3 Weight (lb) 163 Last Documented: On 03/12/2010 4:42PM ; [facility] Results Includes: Results discussed during this encounter [...] 03/12/2010 Last Documented On 0 5:09PM ; [facility] Currently 11/21/2008 Last Documented On 0 4:45PM ; [facility] No consumption of alcohol 11/21/2008 Last Documented On 0 4:45PM ; [facility] No tobacco use 11/21/2008 Last Documented On 0 4:45PM ; [facility] Not using drugs 11/21/2008 Last Documented On 0 4:45PM ; [facility] Smoking Status Unknown Procedures and Surgical History Surgical History Last Updated History of hysterectomy 11/21/2008 Last Documented On 0 4:45PM ; [facility] Medical History Includes: Medical History addressed during this encounter Description Last Updated Not taking OTC medications 03/12/2010 Last Documented On 0 5:09PM ; [facility] History of arthritis 11/21/2008 Last Documented On 0 4:45PM ; [facility] Family History Includes: Family History addressed [...] Time Diagnosis SICK VISIT MATTHEW CHILDS PA-C [facility] 03/12/20 10 4:33PM 5:09PM Cerumen Impaction,War ts Common Insurance Includes: Active Insurance Policies Plan Name Member ID Group # Subscriber Relationship Effect micha Dates 1 - [employer] [id number] LYSSA ROSALINA M Clinical Notes Includes: Clinical Notes from this encounter No Clinical Notes Recorded
--- OUTSIDE RECORDS SUMMARY | 2024-10-22 16:08 | XMS_ITS | Clinical Summary ---
Author Organization [facility] Address [address] [place] [address] Phone Care Team Providers Care Practice Billing Associate Name Role Phone KARLY JACOBSON MD Primary Care Provider [phone] Reason for Visit and Chief Complaint CHART UPDATE Problems Includes: Problems addressed during this encounter and other active Problems All Visits Onset Date Resolved Date Provider Condition S tatus OSTEOPOROSIS NEC 11/21/2008 KARLY JACOBSON MD Active Last Documented On 9 12:05PM ; [facility] PERNICIOUS ANEMIA 11/21/2008 KARLY JACOBSON MD Active Last Documented On 9 12:05PM ; [facility] Plan of Treatment No Plan of Treatment [...] 9 9:29PM By KARLY JACOBSON MD ; [facility] Medications Administered Includes: Administered Medications from [...] 11/21/2008 Last Documented On 0 9:28AM ; [facility] No consumption of alcohol 11/21/2008 Last Documented On 0 9:28AM ; [facility] No tobacco use 11/21/2008 Last Documented On 0 9:28AM ; [facility] Not using drugs 11/21/2008 Last Documented On 0 9:28AM ; [facility] Smoking Status Unknown Procedures and Surgical History Surgical History Last Updated History of hysterectomy 11/21/2008 Last Documented On 0 9:28AM ; [facility] Medical History Includes: Medical History addressed during this encounter Description Last Updated History of arthritis 11/21/2008 Last Documented On 0 9:28AM ; [facility] Family History Includes: Family History addressed during this encounter Description Last Updated Family history of diabetes mellitus 04/2009 Last Documented On 0 9:28AM ; [facility] Heart disease 11/21/2008 Last Documented On 0 9:28AM ; [facility] Review of Systems Includes: Review of Systems [...] Time Diagnosis CHART UPDATE KARLY JACOBSON MD [facility] 10/03/19 10 9:27AM 11:59PM Insurance Includes: Active Insurance Policies Plan Name Member ID Group # Subscriber Relationship Effect micha Dates - [id number] ROSALINA OMALLEY Clinical Notes Includes: Clinical Notes from this encounter No Clinical Notes Recorded
--- OUTSIDE RECORDS SUMMARY | 2024-10-22 16:08 | XMS_ITS | Clinical Summary ---
Author Organization [facility] Address [address] [place] [address] Phone Care Team Providers Care Buggy Runner Name Role Phone Unavailable Primary Care Provider [...] 1 Tablet (112 mcg) by mouth daily transportation maintenance specialist. 30 Tablet 3 8 Active HYDROcodone-anish taminophen [...] 67 03/25/2018 8:11 AM CDT Temperature 36.3 C (97.4 F) 03/25/2018 8:11 AM CDT Respiratory Rate 18 03/25/2018 8:11 AM CDT Oxygen Saturation 95% 03/25/2018 8:12 AM CDT Inhaled Oxygen Concentration - - Weight 73.6 kg (162 lb 3.2 oz) 03/24/2018 5:33 A M CDT Height - - Body Mass Index - - Plan of Treatment Health Maintenance Due Date Last Done Comments ZOSTER VACCINE (1 of 2) 1997 OSTEOPOROSIS SCREENING 2012 PNEUMOCOCCAL VACCINE 50+ YEARS (2 of 2 - PPSV23) 09/1909/19/2017 RSV VACCINE (60+ or ) (1 - 1-dose 75+ series) 2022 INFLUENZA VACCINE (#1) 2024 08/15/2012 DTAP/TDAP/TD VACCINES (2 - Td or Tdap) 11/26/2027 Insurance [employer] CHOICE POS II Advance Directives For more information, please contact: [phone] * Full Code (Latest Code Status on File) Date Activated Date Inactivated Comments 03/24/2018 10:42 AM 03/25/2018 12:07 PM * Full Code Date Activated Date Inactivated Comments 03/24/2018 6:52 AM 03/24/2018 10:42 AM * Full Code Date Activated Date Inactivated Comments 03/24/2018 5:55 AM 03/24/2018 6:52 AM
--- OUTSIDE RECORDS SUMMARY | 2024-10-22 16:08 | XMS_ITS | Clinical Summary ---
Author Organization [facility] Address [address] [place] [address] Phone Care Team Providers Care Petroleum Analyst Name Role Phone KARLY JACOBSON MD Primary Care Provider [phone] Reason for Visit and Chief Complaint * PHONE CALL Problems Includes: Problems addressed during this encounter and other active Problems All Visits Onset Date Resolved Date Provider Condition S tatus OSTEOPOROSIS NEC 11/21/2008 KARLY JACOBSON MD Active Last Documented On 9 12:05PM ; [facility] PERNICIOUS ANEMIA 11/21/2008 KARLY JACOBSON MD Active Last Documented On 9 12:05PM ; [facility] Plan of Treatment No Plan of [...] 9 9:29PM By KARLY JACOBSON MD ; [facility] Medications Administered Includes: Administered Medications from this encounter No Administered Medications Recorded Results Includes: Results discussed during this encounter No Results Recorded For Specified Dates History of Present Illness Includes: History of Present Illness from this encounter No History of Present Illness Recorded Social History Description Last Updated Currently 11/21/2008 Last Documented On 0 10:45AM ; [facility] No consumption of alcohol 11/21/2008 Last Documented On 0 10:45AM ; [facility] No tobacco use 11/21/2008 Last Documented On 0 10:45AM ; [facility] Not using drugs 11/21/2008 Last Documented On 0 10:45AM ; [facility] Smoking Status Unknown Procedures and Surgical History Surgical History Last Updated History of hysterectomy 11/21/2008 Last Documented On 0 10:45AM ; [facility] Medical History Includes: Medical History addressed during this encounter Description Last Updated History of arthritis 11/21/2008 Last Documented On 0 10:45AM ; [facility] Family History Includes: Family History addressed during this encounter Description Last Updated Family history of diabetes mellitus 04/2009 Last Documented On 0 10:45AM ; [facility] Heart disease 11/21/2008 Last Documented On 0 10:45AM ; [facility] Review of Systems Includes: Review of Systems [...] Diagnosis * PHONE CALL KARLY JACOBSON MD [facility] 12/05/19 10 10:45AM 11:59PM Insurance Includes: Active Insurance Policies Plan Name Member ID Group # Subscriber Relationship Effect micha Dates - AE [id number] ROSALINA OMALLEY Clinical Notes Includes: Clinical Notes from this encounter No Clinical Notes Recorded
--- OUTSIDE RECORDS SUMMARY | 2024-10-22 16:08 | XMS_ITS | Encounter Summary ---
Author Organization [facility] Address [address] [place] 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 - Arabella Connors January, Upcoming Appointments Future Appointments In 2 months Lab, [facility], [facility] In 2 months Jorge Alberto Ng MD [facility] SENIOR MAINTENANCE MACHINIST - Recent and Past Visits Recent Visits [...] Total Score: 0 09/02/19 21 10:33 AM SEARCH ENGINE OPTIMIZER documented as of this encounter Care Teams Demand Generator Manager Relationship Specialty Start Date End Date Jorge Alberto Ng MD [address] [address] PCP - General Family Medicine 07/02/15 11/18/22 Sukumar Fitch MD [address] [place] [address] PCP - General Family Medicine 11/19/22 documented as of this encounter
--- OUTSIDE RECORDS SUMMARY | 2024-10-22 16:08 | XMS_ITS | Encounter Summary ---
Author Organization [facility] Address [address] 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 Not on file Not on file documented as of this encounter Plan of Treatment Not on file documented as of this encounter Visit Diagnoses Diagnosis Type 2 diabetes mellitus without complication, without long-term current use of insulin (HCC) documented in this encounter Additional Health Concerns Assessment Noted Time PHQ-9 Depression Total Score: 0 09/02/19 21 10:33 AM TRIMMING PRESS OPERATOR documented as of this encounter Care Teams Well Service Pump Equipment Operator Relationship Specialty Start Date End Date Sukumar Fitch MD [address] [place] [address] PCP - General Family Medicine 11/19/22 documented as of this encounter
--- OUTSIDE RECORDS SUMMARY | 2024-10-22 16:08 | XMS_ITS | Referral Summary ---
Author Organization [facility] Address [address] [place] [address] Care Team Providers Care Seed Technician Name Role Phone Jorge Alberto Ng MD Primary Care Provider [phone] Allergies No known active allergies Medications levothyroxine [...] on file Legal Sex Female 1:42 AM LICENSED ARCHITECT Gender Identity Not on file Sexual Orientation Not on file Plan of Treatment Not on file Insurance [address] [place], [place] [address] HMO REF [facility] Address: [place] [address] [facility] Address: [place] [address] Care Teams Seed Technician Relationship Specialty Start Date End Date Jorge Alberto Ng MD [address] [place] [address] PCP - General Family Medicine 11/21/20
--- OUTSIDE RECORDS SUMMARY | 2024-10-22 16:08 | XMS_ITS | Encounter Summary ---
Author Organization [facility] Address [address] [place] [address] Care Team Providers Care Fitter Helper Name Role Phone Sukumar Fitch MD Primary Care Provider [phone] Reason for Referral * Surgical (Routine) - Closed Specialty Diagnoses / Procedures Referred By Contac t Referred To Contact Diagnoses Varicose veins of lower extremity with pain, right Procedures Case request operating room: [facility]LE[facility] Justin Puentes MD [address] [address] Phone: tel: fax: Referral ID Status Reason Start Date Expiration Date Visits Re quested Visits Authorized [id number] Closed 06/21/2023 06/21/2024 1 1 S HANGER * Surgical (Routine) - Closed Specialty Diagnoses / Procedures Referred By Erica guidry Referred To Contact Diagnoses Varicose veins of lower extremity with pain, left Procedures Case request operating room: [facility] PHLEBECTOMY Justin Puentes MD [address] [address] Phone: tel: fax: Referral ID Status Reason Start Date Expiration Date Visits Re quested Visits Authorized [id number] Closed 06/21/2023 06/21/2024 1 1 S HANGER Encounter Details Date Type Department Care Team (Late st Contact Info) Description 06/21/2023 Prep for Procedure [facility] [place] [address] [place] [address] Justin Puentes MD [facility] [address] [place], [place] [id number] Social History Tobacco Use Types Packs/Day Years Used Date Smoking Tobacco: Never Smokeless Tobacco: Never Alcohol Use Standard Drinks/Week Comments Never 0 (1 standard drink = 0.6 oz pur e alcohol) Comments Unknown Sex and Gender Information Value Date Recorded Sex Assigned at Not on file Legal Sex Female 8:15 AM HANDS HANGER Gender Identity Not on file Sexual Orientation [...] (ABNORMAL) COMPREHENSIVE METABOLIC PANEL (08/12/2023 9:15 AM HANDS HANGER) GLUCOSE 167(H) 70 - 99 MG/DL 08/12/2023 9:54 AM [facility] BUN 20(H) 7 - 18 MG/DL 08/12/2023 9:54 AM [facility] CREATININE S/P/B 0.80 0.55 - 1.02 MG/DL 08/12/2023 9:54 AM HANDS HANGER [facility] SODIUM S/P/B 140 136 - 145 MMOL/L 08/12/2023 9:54 AM [facility] POTASSIUM S/P/B 3.6 3.5 - 5.1 MMOL/L 08/12/2023 9:54 AM [facility] CHLORIDE S/P/B 110(H) 100 - 108 MMOL/L 08/12/2023 9:54 AM [facility] CO2 27.9 21 - 32 MMOL/L 08/12/2023 9:54 AM [facility] CALCIUM S/P/B 9.3 8.5 - 10.1 MG/DL 08/12/2023 9:54 AM [facility] BILIRUBIN TOTAL S/P/B 0.6 0.2 - 1.2 MG/DL 08/12/2023 9:54 AM [facility] Comment: THIS ASSAY IS NOT RECOMMENDED FOR PATIENTS UNDERGOING TREATMENT WITH ELTROMBOPAG DUE TO THE POTENTIAL FOR FALSELY ELEVATED RESULTS. TOTAL PROTEIN S/P/B 7.0 6.4 - 8.2 G/DL 08/12/2023 9:54 AM [facility] ALBUMIN S/P/B 3.3(L) 3.4 - 5.0 G/DL 08/12/2023 9:54 AM [facility] AST 13(L) 15 - 37 U/L 08/12/2023 9:54 AM [facility] ALT 21 14 - 55 U/L 08/12/2023 9:54 AM [facility] ALKALINE PHOSPHATASE S/P/B 97 50 - 136 U/L 08/12/2023 9:54 AM [facility] ANION GAP 2.1(L) 5 - 15 MMOL/L 08/12/2023 9:54 AM [facility] BUN CREATININE RATIO 24.9 6 - 26 08/12/2023 9:54 AM [facility] A/G RATIO 0.9(L) 1.0 - 2.0 RATIO 08/12/2023 9:54 AM [facility] GFR ESTIMATE 76(L) >90 ML/MIN/1.7 3 M2 08/12/2023 9:54 AM [facility] Comment: NOTE: eGFR is not calculated for patients <18 years of age. This is an estimated GFR calculation using the new CKD EPI creatinine equation without race and so does not require a correction factor for race. This estimated GFR should not be used for calculating drug doses. 08/12/2023 9:15 AM HANDS HANGER Justni Puentes MD LABORATORY Final Result [facility] [address] [place] [address], [place] [phone] * CBC W/DIFF AUTOMATED (08/12/2023 9:15 AM HANDS HANGER) WBC 5.5 4.5 - 11.0 x10'3/uL 08/12/2023 9:43 AM [facility] RBC 5.21 4.20 - 5.40 x10'6/uL 08/12/2023 9:43 AM [facility] HGB 14.3 12.0 - 16.0 G/DL 08/12/2023 9:43 AM [facility] HCT 44.5 38.0 - 48.0 % 08/12/2023 9:43 AM [facility] MCV 85.4 81.0 - 99.0 FL 08/12/2023 9:43 AM [facility] MCH 27.4 27.0 - 31.0 PG 08/12/2023 9:43 AM [facility] MCHC 32.1 32.0 - 36.0 G/DL 08/12/2023 9:43 AM [facility] RDW 12.5 11.5 - 14.5 % 08/12/2023 9:43 AM [facility] PLT 306 130 - 400 x10'3/uL 08/12/2023 9:43 AM [facility] MPV 9.9 9.3 - 12.2 FL 08/12/2023 9:43 AM [facility] DIFFERENTIAL TYPE AUTOMATED DIFFERENTIAL 08/12/2023 9:43 AM [facility] NEUTROPHILS % 57.4 % 08/12/2023 9:43 AM [facility] LYMPHOCYTES % 29.4 % 08/12/2023 9:43 AM [facility] MONOCYTES % 8.7 % 08/12/2023 9:43 AM [facility] EOSINOPHILS 3.8 % 08/12/2023 9:43 AM [facility] BASOPHILS 0.5 % 08/12/2023 9:43 AM [facility] IMMATURE GRANS % 0.2 % 08/12/20 9:43 AM [facility] ABS. NEUTROPHILS TOTAL 3.18 1.80 - 7.70 x10'3/uL 08/12/2023 9:43 AM [facility] ABS. LYMPHOCYTES 1.63 1.00 - 4.80 x10'3/uL 08/12/2023 9:43 AM [facility] ABS. MONOCYTES 0.48 0.24 - 0.86 x10'3/uL 08/12/2023 9:43 AM [facility] ABS. EOSINOPHILS 0.21 0.04 - 0.36 x10'3/uL 08/12/2023 9:43 AM [facility] ABS. BASOPHILS 0.03 0.01 - 0.08 x10'3/uL 08/12/2023 9:43 AM [facility] ABS. IMMATURE GRANULOCYTES 0.01 0.00 - 0.49 x10'3/uL 08/12/2023 9:43 AM HANDS HANGER [facility] 08/12/2023 9:15 AM HANDS HANGER Justin Puentes MD LABORATORY Final Result [facility] [address] [place] [address], documented in this encounter Visit Diagnoses Diagnosis Varicose veins of lower extremity with pain, left- Primary Varicose veins of lower extremity with pain, right documented in this encounter Care Teams Fitter Helper Relationship Specialty Start Date End Date Sukumar Fitch MD [address] [place] [id number] PCP - General FAMILY PRACTICE 07/15/22 documented as of this encounter
--- OUTSIDE RECORDS SUMMARY | 2024-10-22 16:08 | XMS_ITS ---
Author Organization [facility] Address [address] [place] [address] Phone Care Team Providers Care Digital Project Coordinator Name Role Phone KAVON ROSENBERG, KARLY Primary Care Provider [phone] Problems Includes: Active, inactive, and resolved Problems All Visits Onset Date Resolved Date Provider Condition S tatus OSTEOPOROSIS NEC 11/21/2008 KARLY JACOBSON MD Active Last Documented On 9 12:05PM ; [facility] PERNICIOUS ANEMIA 11/21/2008 KARLY JACOBSON MD Active Last Documented On 9 12:05PM ; [facility] Plan of Treatment Findings Encounter Date Ordered follow-up visit as n eeded with an office visit. SICK VISIT with MATTHEW CHILDS PA-C 03/12/2010 Last Documented On 0 5:09PM ; [facility] Assessments Includes: Assessments for all patient encounters Findings Encounter Date Benign skin neoplasm PRE-OP EXAM with KARLY SANDRA MD 05/26/2010 Last Documented On 0 11:04PM ; [facility] Diarrhea PRE-OP EXAM with KARLY CARROLL MD 05/26/2010 Last Documented On 0 11:04PM ; [facility] Pre-op cardiovascular exam PRE-OP EXAM with JULIET JACOBSON MD 05/26/2010 Last Documented On 0 11:04PM ; [facility] Cerumen impaction SICK VISIT with MATTHEW Lynch 03/12/2010 Last Documented On 0 5:09PM ; [facility] Common warts SICK VISIT with MATTHEW Burgess 03/12/2010 Last Documented On 0 5:09PM ; [facility] Medical Equipment - Implanted Devices Includes: Current and historical Devices No Medical Equipment Recorded Medications Includes: Current and historical Medications Past Medications on file Ambien CR 6.25 MG OR TBCR 07/29/2009 - 08/02/2009 Prov ider: KARLY JACOBSON MD Diagnosis: #4 DISPENSED Last Documented On 9 9:29PM By KARLY JACOBSON MD ; [facility] Medications Administered Includes: Administered Medications in patient's chart No Administered Medications Recorded Results Includes: Results from 10/23/2023 through 10/22/2024 No Results Recorded For Specified Dates History of Present Illness History of Present Illness not supported for this document type No History of Present Illness Recorded Social History Description Last Updated Not smoking 03/12/2010 Last Documented On 0 5:09PM ; [facility] Currently 11/21/2008 Last Documented On 9 12:07PM ; [facility] No consumption of alcohol 11/21/2008 Last Documented On 9 12:07PM ; [facility] No tobacco use 11/21/2008 Last Documented On 9 12:07PM ; [facility] Not using drugs 11/21/2008 Last Documented On 9 12:07PM ; [facility] Smoking Status Unknown Procedures and Surgical History Surgical History Last Updated History of hysterectomy 11/21/2008 Last Documented On 9 12:07PM ; [facility] Medical History Includes: Medical History in patient's chart Description Last Updated Not taking OTC medications 03/12/2010 Last Documented On 0 5:09PM ; [facility] History of arthritis 11/21/2008 Last Documented On 9 12:07PM ; [facility] Family History Includes: Family History in patient's chart Description Last Updated Family history of diabetes mellitus 04/2009 Last Documented On 9 12:07PM ; [facility] Heart disease 11/21/2008 Last Documented On 9 12:07PM ; [facility] Review of Systems Review of Systems not [...] (SD) 1 05/26/2010 Left Arm Complete (Administered) [facility] Last Documented On 0 9:57AM ; [facility] Allergies Includes: Active, inactive, and resolved Allergies No Known Allergies Insurance Includes: Active Insurance Policies Plan Name Member ID Group # Subscriber Relationship Effect micha Dates 1 - [employer] [id number] ROSALINA OMALLEY Clinical Notes Includes: Signed Clinical Notes starting from 09/03/2022 No Clinical Notes Recorded
--- OUTSIDE RECORDS SUMMARY | 2024-10-22 16:08 | XMS_ITS ---
Care Plan - [facility] Created on: October 22, 2024 DEBRA OMALLEY : 1945 Sex: Female Author Organization [facility] Address [address] [place] [address] Phone Care Team Providers Care Dinkey Brakeman Name Role Phone KARLY JACOBSON MD Primary Care Provider
--- OUTSIDE RECORDS SUMMARY | 2024-10-22 16:08 | XMS_ITS | Clinical Summary ---
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 Not on file Not on file Last Filed Vital Signs Vital Sign Reading Time Taken Comments Blood Pressure 128/64 02/25/2022 1:46 PM CDT Pulse 68 02/25/2022 1:46 PM CDT Temperature 36.6 C (97.8 F) 02/25/2022 1:46 PM CDT Respiratory Rate 16 02/25/2022 1:46 PM CDT [...] Procedure Name Priority Date/Time Associated Diagnosis Comments [facility] BONE DENSITOMETRY AXIAL SKELETON Routine 09/25/2021 2:10 PM CENTRIFUGAL SEPARATOR Menopause [facility] SCREENING BILATERAL DIGITAL W CAD W YAA Routine 07/03/2020 5:17 PM CENTRIFUGAL SEPARATOR Encounter for screening mammogram for malignant neoplasm of breast COLONOSCOPY Routine 02/09/2012 from Last 3 Months or Most Recently Relevant to Health Maintenance Results * [facility] BONE DENSITOMETRY AXIAL SKELETON (09/25/2021 2:10 PM CENTRIFUGAL SEPARATOR) Anatomical Region Laterality Modality BODY N/A Other 09/25/2021 2:33 PM CENTRIFUGAL SEPARATOR Impressions 09/25/2021 2:36 PM CENTRIFUGAL SEPARATOR IMPRESSION: Osteoporosis. REFERENCE: Bone mineral density: Normal [...] of Osteoporosis (http://www.nof.org/professionals/clinical-guidelines) Narrative 09/25/2021 2:36 PM CENTRIFUGAL SEPARATOR EXAM DESCRIPTION: [facility] BONE DENSITOMETRY AXIAL SKELETON REASON FOR STUDY: 76 y/o year old F with given history of screening. 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 AG: [facility]O Report ID: [id number] Reading Location: [place] [address] Procedure Note Yash Houston MD - 09/25/2021 EXAM DESCRIPTION: [facility] BONE DENSITOMETRY AXIAL SKELETON REASON FOR STUDY: 76 y/o year old F with given history of screening. 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 AG: [facility] Report ID: [id number] Reading Location: [place] [address] IMPRESSION: Osteoporosis. REFERENCE: Bone mineral density: Normal [...] W CAD W YAA (07/03/2020 5:17 PM CENTRIFUGAL SEPARATOR) Anatomical Region Laterality Modality breast Bilateral Mammography 07/03/2020 4:46 PM CENTRIFUGAL SEPARATOR Narrative 07/04/2020 11:57 AM CENTRIFUGAL SEPARATOR - [facility] SCREENING BILATERAL DIGITAL W CAD [...] made to exams dated: 02/13/2018 and 01/26/2011 [facility]. BREAST TISSUE:There are scattered fibroglandular densities [...] will be contacted. Electronically signed by: Faustina juarez/rylie:07/04/2020 10:29:42 Telecom Network Manager: Gia CASTRO(Wolfgang)(Natan), [facility] letter sent: Additional Imaging Reading location: [facility] BI-RADS: 0 Additional Imaging Evaluation Needed Procedure [...] made to exams dated: 02/13/2018 and 01/26/2011 [facility]. BREAST TISSUE:There are scattered fibroglandular densities [...] will be contacted. Electronically signed by: Faustina juarez/rylie:07/04/2020 10:29:42 Telecom Network Manager: Gia LAWRENCE)(Natan), [facility] letter sent: Additional Imaging Reading location: [facility] BI-RADS: 0 Additional Imaging Evaluation Needed Jorge Alberto Ng MD IMG MAMMO ORDERABLES Final Re sult * HM COLONOSCOPY (02/09/2012) Jorge Alberto Ng MD PROCEDURE/MINOR SURGICAL ORDE RABLES Final Result from Last 3 Months or Most Recently Relevant to Health Maintenance Insurance MEDICARE C [facility] on file Care Teams High Wire Artist Relationship Specialty Start Date End Date Sukumar Fitch MD [address] [place] [address] PCP - General Family Medicine 11/19/22
--- OUTSIDE RECORDS SUMMARY | 2024-10-22 16:08 | XMS_ITS | Clinical Summary ---
Author Organization [facility] Address [address] [place] [address] Phone Care Team Providers Care Route Manager Name Role Phone KAVON ROSENBERG, KARLY Primary Care Provider [phone] Reason for Visit and Chief Complaint The [...] 12:05PM ; [facility] Plan of Treatment - BENIGN SKIN NEOPLASM - Last Documented On 05/26/2010 11:04PM ; [facility] In office procedures/*Family Practice: Shave Lesion Trunk Arms Legs .5cm or Less - Last Documented On 05/26/2010 11:04PM ; [facility] ? DIARRHEALab: Ordered labs - Last Documented On 05/26/2010 11:04PM ; [facility] ? OTHERRadiology/*MAMMOGRAM: Mammogram - Last Documented On 05/26/2010 11:04PM ; [facility] ? PREOP CARDIOVSCLR EXAMIn office procedures/*Family Practice: ElectrocardiogramLab: Comp Metabolic PanelLab: Lipid PanelLab: CBC w/ DIFF - Last Documented On 05/26/2010 11:04PM ; [facility] Pending Tests Order Diagnosis Results Due Ordering P rovider Lab Comp Metabolic Panel 05/26/10 JULIET JACOBSON MD Last Documented On 0 4:47PM ; [facility] Lab Lipid Panel 05/26/10 KARLY ERWIN MD Last Documented On 0 4:47PM ; [facility] Lab CBC w/ DIFF 05/26/10 KARLY ERWIN MD Last Documented On 0 4:47PM ; [facility] Lab Ordered labs 05/26/10 KARLY METZ MD Last Documented On 0 2:54PM ; [facility] Radiology @ other - *MAMMOGRAPHY Mammogram 09/06 KARLY JACOBSON MD Last Documented On 0 10:15AM ; [facility] In office procedures - *Family Practice Electrocardiogram PREOP CARDIOVSCLR EXAM 06/09/10 KARLY JACOBSON MD Last Documented On 0 9:29AM ; [facility] In office procedures - *Family Practice Shave Lesion Trunk Arms Legs .5cm or Less BENIGN NEOPLASM SKIN NOS 06/09/10 KARLY JACOBSON MD Last Documented On 0 11:02PM ; [facility] Assessments Includes: Assessments from this encounter Findings - Diarrhea - Last Documented On 05/26/2010 11:04PM ; [facility] - Benign skin neoplasm - Last Documented On 05/26/2010 11:04PM ; [facility] - Pre-op cardiovascular exam - Last Documented On 05/26/2010 11:04PM ; [facility] Medical Equipment - Implanted Devices Includes: Current Devices No Medical Equipment Recorded Medications Includes: Medications discussed during this encounter and other current Medications Past Medications on file Ambien CR 6.25 MG OR TBCR 07/29/2009 - 08/02/2009 Prov ider: KARLY JACOBSON MD Diagnosis: #4 DISPENSED Last Documented On 9 9:29PM By KARLY JACOBSON MD ; [facility] Medications Administered Includes: Administered Medications from this encounter No Administered Medications Recorded Vital Signs Includes: Vital Signs from this encounter Vital Name 05/26/2010 08:30A Blood Pressure Sitting L 112/72 BP Cuff Size Regular Pulse Rate-Sitting (bpm) 78 Pulse Rhythm Regular Respiration Rate (breaths/min) 18 Temp-Oral (F) 98.6 Weight (lb) 164 Last Documented: On 05/26/2010 8:54AM ; [facility] Results Includes: Results discussed [...] 03/12/2010 Last Documented On 0 8:46AM ; [facility] Currently 11/21/2008 Last Documented On 0 8:46AM ; [facility] No consumption of alcohol 11/21/2008 Last Documented On 0 8:46AM ; [facility] No tobacco use 11/21/2008 Last Documented On 0 8:46AM ; [facility] Not using drugs 11/21/2008 Last Documented On 0 8:46AM ; [facility] Smoking Status Unknown Procedures and Surgical History Includes: Procedures from this encounter Procedures Code Diagnosis Performing Provider Service L ocation Service Date risks, benefits, and limitations discussed and understood INFLUENZA INJECTION PAPERWORK FILLED OUT AND DISCUSSED Last Documented On 0 10:56PM ; [facility] risks, benefits, and limitat ions discussed and understood - patient wishes to proceed Last Documented On 0 10:56PM ; [facility] Surgical History Last Updated History of hysterectomy 11/21/2008 Last Documented On 0 8:46AM ; [facility] Medical History Includes: Medical History addressed during this encounter Description Last Updated Not taking OTC medications 03/12/2010 Last Documented On 0 8:46AM ; [facility] History of arthritis 11/21/2008 Last Documented On 0 8:46AM ; [facility] Family History Includes: Family History addressed during this encounter Description Last Updated Family history of diabetes mellitus 04/2009 Last Documented On 0 8:46AM ; [facility] Heart disease 11/21/2008 Last Documented On 0 8:46AM ; [facility] Review of Systems Includes: Review of Systems [...] (SD) 1 05/26/2010 Left Arm Complete (Administered) [facility] Last Documented On 0 9:57AM ; [facility] Allergies Includes: Active Allergies No Known Allergies Encounters Encounter Provider Location Date Check-In Time Check-Out Time Diagnosis PRE-OP EXAM KARLY JACOBSON MD [facility] 010 8:24AM 9:57AM Benign Skin Neoplasm,Pre-op Cardiovascular Exam,Diarrhea Insurance Includes: Active Insurance Policies Plan Name Member ID Group # Subscriber Relationship Effect micha Dates 1 - [employer] [id number] ROSALINA OMALLEY Clinical Notes Includes: Clinical Notes from this encounter No Clinical Notes Recorded
--- OUTSIDE RECORDS SUMMARY | 2024-10-22 16:08 | XMS_ITS | Clinical Summary ---
Author Organization [facility] Address [address] [place] [address] Care Team Providers Care Laboratory Analyst Name Role Phone Jorge Alberto Ng MD Primary Care Provider [phone] Allergies No known active allergies Medications levothyroxine [...] on file Legal Sex Female 1:42 AM AREA CLEANER Gender Identity Not on file Sexual Orientation Not on file Obstetrics History Plan of Treatment Not on file Insurance UHC MDCR HMO REF UHC MDCR HMO REF Care Teams Laboratory Analyst Relationship Specialty Start Date End Date Jorge Alberto Ng MD [address] [place] [address] PCP - General Family Medicine 11/21/20
--- OUTSIDE RECORDS SUMMARY | 2024-10-22 16:08 | XMS_ITS | Encounter Summary ---
Author Organization [facility] Address [address] 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 Not on file Not on file Not [...] Please call in * Telephone Encounter - oMnie Stewart RN - 03/09/2021 12:07 PM CDT [...] Office Visit Jorge Alberto Ng MD [facility] Showing recent visits within past 182 days [...] Total Score: 0 09/02/19 21 10:33 AM 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
--- OUTSIDE RECORDS SUMMARY | 2024-10-22 16:08 | XMS_ITS | Clinical Summary ---
Author Organization [facility] Address [address] [place] [address] Phone Care Team Providers Care Honey Liquefier Name Role Phone KAVON ROSENBERG, KARLY Primary Care Provider [phone] Reason for Visit and Chief Complaint * PHONE CALL Problems Includes: Problems addressed during this encounter and other active Problems All Visits Onset Date Resolved Date Provider Condition S tatus OSTEOPOROSIS NEC 11/21/2008 KARLY JACOBSON MD Active Last Documented On 9 12:05PM ; [facility] PERNICIOUS ANEMIA 11/21/2008 KARLY JACOBSON MD Active Last Documented On 9 12:05PM ; [facility] Plan of Treatment - OTHER - Last Documented On 07/29/2009 4:39PM ; [facility] *Phone Call WOULDS SHE LIKE TO TRY AMBIEN CR SAMPLES - Last Documented On 07/29/2009 4:39PM ; [facility] PT WOULD LIKE TO TRY SAMPLES, 6.25 MG DISPENSED #4. 07-29-09 - Last Documented On 07/29/2009 4:39PM ; [facility] Assessments Includes: Assessments from this encounter No Assessments Recorded Medical Equipment - Implanted Devices Includes: Current Devices No Medical Equipment Recorded Medications Includes: Medications discussed during this encounter and other current Medications Past Medications on file Ambien CR 6.25 MG OR TBCR 07/29/2009 - 08/02/2009 Prov ider: KARLY JACOBSON MD Diagnosis: #4 DISPENSED Last Documented On 9 9:29PM By KARLY JACOBSON MD ; [facility] Medications Administered Includes: Administered Medications from this encounter No Administered Medications Recorded Results Includes: Results discussed during this encounter No Results Recorded For Specified Dates History of Present Illness Includes: History of Present Illness from this encounter HPI DEBRA OMALLEY is a 64 year old female. Pharmacy name:[facility] location:[place]. Social History Description Last Updated Currently 11/21/2008 Last Documented On 9 2:30PM ; [facility] No consumption of alcohol 11/21/2008 Last Documented On 9 2:30PM ; [facility] No tobacco use 11/21/2008 Last Documented On 9 2:30PM ; [facility] Not using drugs 11/21/2008 Last Documented On 9 2:30PM ; [facility] Smoking Status Unknown Procedures and Surgical History Surgical History Last Updated History of hysterectomy 11/21/2008 Last Documented On 9 2:30PM ; [facility] Medical History Includes: Medical History addressed during this encounter Description Last Updated History of arthritis 11/21/2008 Last Documented On 9 2:30PM ; [facility] Family History Includes: Family History addressed during this encounter Description Last Updated Family history of diabetes mellitus 04/2009 Last Documented On 9 2:30PM ; [facility] Heart disease 11/21/2008 Last Documented On 9 2:30PM ; [facility] Review of Systems Includes: Review of [...] Diagnosis * PHONE CALL KARLY CORONADO-ANA ROSENBERG [facility] YONI AUGUST 07/29/20 09 2:31PM 11:59PM Insurance Includes: Active Insurance Policies Plan Name Member ID Group # Subscriber Relationship Effect micha Dates - [id number] ROSALINA OMALLEY M Clinical Notes Includes: Clinical Notes from this encounter No Clinical Notes Recorded
--- OUTSIDE RECORDS SUMMARY | 2024-10-22 16:08 | XMS_ITS | Encounter Summary ---
Author Organization [facility] Address [address] 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
--- OUTSIDE RECORDS SUMMARY | 2024-10-22 16:08 | XMS_ITS | Encounter Summary ---
Author Organization [facility] Address [address] 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 Not on file Not on file Not [...] Outpatient Visits 2 months ago Acquired hypothyroidism [facility] Jorge Alberto Garcia MD 1 year ago Anal lesion [facility] Jorge Alberto Garcia MD 2 years ago Goiter [facility] - Arabella Connors PAC 2 years ago Encounter for immunization [facility] Evette Townsend PAC 2 years ago Uncontrolled type 2 diabetes mellitus without complication, without long-term current use of insulin ([facility]) [facility] Upcoming Appointments Future Appointments In 3 months Jorge Alberto Ng MD [facility] - Recent and Past Visits Recent Visits Date Type Provider Dept 04/01/20 Office Visit Jorge Alberto Ng MD [facility] Showing recent visits within past 460 days [...] Outpatient Visits 2 months ago Acquired hypothyroidism [facility] Jorge Alberto Garcia MD 1 year ago Anal lesion [facility] Jorge Alberto Garcia MD 2 years ago Goiter [facility] - Arabella Connors, PAC 2 years ago Encounter for immunization [facility] - Evette Townsend PAC 2 years ago Uncontrolled type 2 diabetes mellitus without complication, without long-term current use of insulin (HCC) [facility] Upcoming Appointments Future Appointments In 3 months Jorge Alberto Ng MD [facility] - Recent and Past Visits Recent Visits Date Type Provider Dept 04/01/20 Office Visit Jorge Alberto Ng MD [facility] Showing recent visits within past 460 days [...] documented as of this encounter Care Teams Airplane Technician Relationship Specialty Start Date End Date Jorge Alberto Ng MD [address] [address] PCP - General Family Medicine 07/02/15 11/18/22 Sukumar Fitch MD [address] [place] [id number] PCP - General Family Medicine 11/19/22 documented as of this encounter
--- OUTSIDE RECORDS SUMMARY | 2024-10-22 16:08 | XMS_ITS | Clinical Summary ---
Author Organization [facility] Address [address] [place] [address] Care Team Providers Care Paint Tester Name Role Phone Sukumar Fitch MD Primary Care Provider [phone] Allergies No known active allergies Medications aspirin 81 MG chewable tablet Chew 1 tablet (81 mg total) by mouth daily. Active levothyroxine (SYNTHROID) 137 MCG tablet Take 1 tablet (137 mcg total) by mouth daily. 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 [...] on file Legal Sex Female 8:15 AM SHED HAND Gender Identity Not on file Sexual Orientation Not on file Last Filed Vital Signs Vital Sign Reading Time Taken Comments Blood Pressure 144/60 03/28/2024 1:42 PM CDT Pulse 74 03/28/2024 1:42 PM CDT Temperature 36.2 C (97.2 F) 08/12/2023 2:25 PM SHED HAND Respiratory Rate 18 08/12/2023 2:25 PM SHED HAND Oxygen Saturation 98% 08/12/2023 2:25 PM SHED HAND Inhaled Oxygen Concentration - - Weight 71.2 [...] this topic Meningococcal Vaccine Aged Out No sanjuana annalee eligible based on patient's age to complete this topic RSV Immunizations Under 20 Months Aged Out No longer eligible b ased on patient's age to complete this topic Insurance [facility] Care Teams Paint Tester Relationship Specialty Start Date End Date Sukumar Fitch MD [address] [place] [address] PCP - General FAMILY PRACTICE 07/15/22
== END 2024-10-22 13:56 | disposition home or self-care (01) ==
LOC: ANHBWCLAB 13:56
PROVIDERS: PCP Nurse Practitioner Adult Health; Visit Provider Nurse Practitioner Adult Health
DX: E03.9 Hypothyroidism, unspecified (principal)
CPT/HCPCS: 36415; 84443

== ENCOUNTER 2024-11-06 00:23 | Day surgery (SDC) | payer MEDICARE, SELFPAY ==
[2024-11-05 08:21] VITALS: BMI 24.0
--- OUTSIDE RECORDS SUMMARY | 2024-11-06 00:27 | XMS_ITS | Encounter Summary ---
Author Organization [facility] Address [address] 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
--- OUTSIDE RECORDS SUMMARY | 2024-11-06 00:27 | XMS_ITS | Clinical Summary ---
Author Organization [facility] Address [address] [place] [address] Phone Care Team Providers Care Savings Counselor Name Role Phone KAVON ROSENBERG, KARLY Primary Care Provider [phone] Reason for Visit and Chief Complaint * [...] 12:05PM ; [facility] Plan of Treatment - OTHER - Last Documented On 07/29/2009 4:39PM ; [facility] *Phone Call WOULDS SHE LIKE TO TRY AMBIEN CR SAMPLES - Last Documented On 07/29/2009 4:39PM ; [facility] PT WOULD LIKE TO TRY SAMPLES, 6.25 MG DISPENSED #4. 07-29-09 - Last Documented On 07/29/2009 4:39PM ; [facility] Assessments Includes: Assessments from this encounter [...] MD ; [facility] Medications Administered Includes: Administered Medications from this encounter No Administered Medications Recorded Results Includes: Results discussed during this encounter No Results Recorded For Specified Dates History of Present Illness Includes: History of Present Illness from this encounter HPI DEBRA OMALLEY is a 64 year old female. Pharmacy name:[facility] location:[place]. Social History Description Last Updated Currently 11/21/2008 Last Documented On 9 2:30PM ; [facility] No consumption of alcohol 11/21/2008 Last Documented On 9 2:30PM ; [facility] No tobacco use 11/21/2008 Last Documented On 9 2:30PM ; [facility] Not using drugs 11/21/2008 Last Documented On 9 2:30PM ; [facility] Smoking Status Unknown Procedures and Surgical History Surgical History Last Updated History of hysterectomy 11/21/2008 Last Documented On 9 2:30PM ; [facility] Medical History Includes: Medical History addressed during this encounter Description Last Updated History of arthritis 11/21/2008 Last Documented On 9 2:30PM ; [facility] Family History Includes: Family History addressed during this encounter Description Last Updated Family history of diabetes mellitus 04/2009 Last Documented On 9 2:30PM ; [facility] Heart disease 11/21/2008 Last Documented On 9 2:30PM ; [facility] Review of Systems Includes: Review of [...] Diagnosis * PHONE CALL KARLY CORONADO-ANA ROSENBERG [facility] YONI AUGUST 07/29/20 09 2:31PM 11:59PM Insurance Includes: Active Insurance Policies Plan Name Member ID Group # Subscriber Relationship Effect micha Dates - [id number] ROSALINA OMALLEY M Clinical Notes Includes: Clinical Notes from this encounter No Clinical Notes Recorded
--- OUTSIDE RECORDS SUMMARY | 2024-11-06 00:27 | XMS_ITS ---
Author Organization [facility] Address [address] [place] [address] Phone Care Team Providers Care Trailer Tank Truck Driver Name Role Phone KAVON ROSENBERG, KARLY Primary Care Provider [phone] Problems Includes: Active, inactive, and resolved Problems All Visits Onset Date Resolved Date Provider Condition S tatus OSTEOPOROSIS NEC 11/21/2008 KARLY JACOBSON MD Active Last Documented On 9 12:05PM ; [facility] PERNICIOUS ANEMIA 11/21/2008 KARLY JACOBSON MD Active Last Documented On 9 12:05PM ; [facility] Plan of Treatment Findings Encounter Date Ordered follow-up visit as n eeded with an office visit. SICK VISIT with MATTHEW CHILDS PA-C 03/12/2010 Last Documented On 0 5:09PM ; [facility] Assessments Includes: Assessments for all patient encounters Findings Encounter Date Benign skin neoplasm PRE-OP EXAM with KARLY SANDRA MD 05/26/2010 Last Documented On 0 11:04PM ; [facility] Diarrhea PRE-OP EXAM with KARLY CARROLL MD 05/26/2010 Last Documented On 0 11:04PM ; [facility] Pre-op cardiovascular exam PRE-OP EXAM with JULIET JACOBSON MD 05/26/2010 Last Documented On 0 11:04PM ; [facility] Cerumen impaction SICK VISIT with MATTHEW Lynch 03/12/2010 Last Documented On 0 5:09PM ; [facility] Common warts SICK VISIT with MATTHEW Burgess 03/12/2010 Last Documented On 0 5:09PM ; [facility] Medical Equipment - Implanted Devices Includes: Current and historical Devices No Medical Equipment Recorded Medications Includes: Current and historical Medications Past Medications on file Ambien CR 6.25 MG OR TBCR 07/29/2009 - 08/02/2009 Prov ider: KARLY JACOBSON MD Diagnosis: #4 DISPENSED Last Documented On 9 9:29PM By KARLY JACOBSON MD ; [facility] Medications Administered Includes: Administered Medications in patient's chart No Administered Medications Recorded Results Includes: Results from 11/07/2023 through 11/06/2024 No Results Recorded For Specified Dates History of Present Illness History of Present Illness not supported for this document type No History of Present Illness Recorded Social History Description Last Updated Not smoking 03/12/2010 Last Documented On 0 5:09PM ; [facility] Currently 11/21/2008 Last Documented On 9 12:07PM ; [facility] No consumption of alcohol 11/21/2008 Last Documented On 9 12:07PM ; [facility] No tobacco use 11/21/2008 Last Documented On 9 12:07PM ; [facility] Not using drugs 11/21/2008 Last Documented On 9 12:07PM ; [facility] Smoking Status Unknown Procedures and Surgical History Surgical History Last Updated History of hysterectomy 11/21/2008 Last Documented On 9 12:07PM ; [facility] Medical History Includes: Medical History in patient's chart Description Last Updated Not taking OTC medications 03/12/2010 Last Documented On 0 5:09PM ; [facility] History of arthritis 11/21/2008 Last Documented On 9 12:07PM ; [facility] Family History Includes: Family History in patient's chart Description Last Updated Family history of diabetes mellitus 04/2009 Last Documented On 9 12:07PM ; [facility] Heart disease 11/21/2008 Last Documented On 9 12:07PM ; [facility] Review of Systems Review of Systems not [...] (SD) 1 05/26/2010 Left Arm Complete (Administered) [facility] Last Documented On 0 9:57AM ; [facility] Allergies Includes: Active, inactive, and resolved Allergies No Known Allergies Insurance Includes: Active Insurance Policies Plan Name Member ID Group # Subscriber Relationship Effect micha Dates 1 - [employer] [id number] ROSALINA OMALLEY Clinical Notes Includes: Signed Clinical Notes starting from 09/03/2022 No Clinical Notes Recorded
--- OUTSIDE RECORDS SUMMARY | 2024-11-06 00:27 | XMS_ITS | Clinical Summary ---
Author Organization [facility] Address [address] [place] [address] Phone Care Team Providers Care Card Filer Name Role Phone KAVON ROSENBERG, KARLY Primary Care Provider [phone] Reason for Visit and Chief Complaint The Chief Complaint is: left ear pain, feels plugged. Bothering her for 3 weeks. ~ ~OTC: none ~Meds: none Problems Includes: Problems addressed during this encounter and other active Problems All Visits Onset Date Resolved Date Provider Condition S tatus OSTEOPOROSIS NEC 11/21/2008 KARLY JACOBSON MD Active Last Documented On 9 12:05PM ; [facility] PERNICIOUS ANEMIA 11/21/2008 KARLY JACOBSON MD Active Last Documented On 9 12:05PM ; [facility] Plan of Treatment - WARTS COMMON - Last Documented On 03/12/2010 5:09PM ; [facility] In office procedures/*Family Practice: Cryo, Lesion 1 - Last Documented On 03/12/2010 5:09PM ; [facility] ? CERUMEN IMPACTIONIn office procedures/*Family Practice: Cerumen (Ear Wax) Removal - Last Documented On 03/12/2010 5:09PM ; [facility] - Follow-up visit as needed with an office visit. - Last Documented On 03/12/2010 5:09PM ; [facility] Pending Tests Order Diagnosis Results Due Ordering P congvider In office procedures - *Family Practice Cerumen (Ear Wax) Removal IMPACTED CERUMEN 03/26/10 MATTHEW CHILDS PA-C Last Documented On 0 5:00PM ; [facility] In office procedures - *Family Practice Cryo, Lesion 1 Ot Specfd Viral Warts 03/26/10 MATTHEW CHILDS PA-C Last Documented On 0 5:00PM ; [facility] Assessments Includes: Assessments from this encounter Findings - Cerumen impaction - Last Documented On 03/12/2010 5:09PM ; [facility] - Common warts - Last Documented On 03/12/2010 5:09PM ; [facility] Medical Equipment - Implanted Devices Includes: Current Devices No Medical Equipment Recorded Medications Includes: Medications discussed during this encounter and other current Medications Past Medications on file Ambien CR 6.25 MG OR TBCR 07/29/2009 - 08/02/2009 Prov ider: KARLY JACOBSON MD Diagnosis: #4 DISPENSED Last Documented On 9 9:29PM By KARLY JACOBSON MD ; [facility] Medications Administered Includes: Administered Medications from this encounter No Administered Medications Recorded Vital Signs Includes: Vital Signs from this encounter Vital Name 03/12/2010 04:30P Blood Pressure Sitting R 124/90 BP Cuff Size Regular Respiration Rate (breaths/min) 18 Temp-Oral (F) 98.3 Weight (lb) 163 Last Documented: On 03/12/2010 4:42PM ; [facility] Results Includes: Results discussed during [...] 03/12/2010 Last Documented On 0 5:09PM ; [facility] Currently 11/21/2008 Last Documented On 0 4:45PM ; [facility] No consumption of alcohol 11/21/2008 Last Documented On 0 4:45PM ; [facility] No tobacco use 11/21/2008 Last Documented On 0 4:45PM ; [facility] Not using drugs 11/21/2008 Last Documented On 0 4:45PM ; [facility] Smoking Status Unknown Procedures and Surgical History Surgical History Last Updated History of hysterectomy 11/21/2008 Last Documented On 0 4:45PM ; [facility] Medical History Includes: Medical History addressed during this encounter Description Last Updated Not taking OTC medications 03/12/2010 Last Documented On 0 5:09PM ; [facility] History of arthritis 11/21/2008 Last Documented On 0 4:45PM ; [facility] Family History Includes: Family History addressed [...] Time Diagnosis SICK VISIT MATTHEW CHILDS PA-C [facility] 03/12/20 10 4:33PM 5:09PM Cerumen Impaction,War ts Common Insurance Includes: Active Insurance Policies Plan Name Member ID Group # Subscriber Relationship Effect micha Dates 1 - [employer] [id number] LYSSA ROSALINA M Clinical Notes Includes: Clinical Notes from this encounter No Clinical Notes Recorded
--- OUTSIDE RECORDS SUMMARY | 2024-11-06 00:27 | XMS_ITS | Clinical Summary ---
Author Organization [facility] Address [address] [place] [address] Phone Care Team Providers Care Foil Stamp Operator Name Role Phone KARLY JACOBSON MD Primary Care Provider [phone] Reason for Visit and Chief Complaint CHART UPDATE Problems Includes: Problems addressed during this encounter and other active Problems All Visits Onset Date Resolved Date Provider Condition S tatus OSTEOPOROSIS NEC 11/21/2008 KARLY JACOBSON MD Active Last Documented On 9 12:05PM ; [facility] PERNICIOUS ANEMIA 11/21/2008 KARLY JACOBSON MD Active Last Documented On 9 12:05PM ; [facility] Plan of Treatment No Plan [...] By KARLY JACOBSON MD ; [facility] Medications Administered Includes: Administered Medications [...] 11/21/2008 Last Documented On 0 9:28AM ; [facility] No consumption of alcohol 11/21/2008 Last Documented On 0 9:28AM ; [facility] No tobacco use 11/21/2008 Last Documented On 0 9:28AM ; [facility] Not using drugs 11/21/2008 Last Documented On 0 9:28AM ; [facility] Smoking Status Unknown Procedures and Surgical History Surgical History Last Updated History of hysterectomy 11/21/2008 Last Documented On 0 9:28AM ; [facility] Medical History Includes: Medical History addressed during this encounter Description Last Updated History of arthritis 11/21/2008 Last Documented On 0 9:28AM ; [facility] Family History Includes: Family History addressed during this encounter Description Last Updated Family history of diabetes mellitus 04/2009 Last Documented On 0 9:28AM ; [facility] Heart disease 11/21/2008 Last Documented On 0 9:28AM ; [facility] Review of Systems Includes: Review [...] Time Diagnosis CHART UPDATE KARLY JACOBSON MD [facility] 10/03/19 10 9:27AM 11:59PM Insurance Includes: Active Insurance Policies Plan Name Member ID Group # Subscriber Relationship Effect micha Dates - [id number] ROSALINA OMALLEY Clinical Notes Includes: Clinical Notes from this encounter No Clinical Notes Recorded
--- OUTSIDE RECORDS SUMMARY | 2024-11-06 00:27 | XMS_ITS | Referral Summary ---
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
--- OUTSIDE RECORDS SUMMARY | 2024-11-06 00:27 | XMS_ITS | Encounter Summary ---
Author Organization [facility] Address [address] 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 Not on file Not [...] Outpatient Visits 2 months ago Acquired hypothyroidism [facility] Jorge Alberto Garcia MD 1 year ago Anal lesion [facility] Jorge Alberto Garcia MD 2 years ago Goiter [facility] - Arabella Connors PAC 2 years ago Encounter for immunization [facility] - Evette Townsend PAC 2 years ago Uncontrolled type 2 diabetes mellitus without complication, without long-term current use of insulin ([facility]) [facility] Upcoming Appointments Future Appointments In 3 months Jorge Alberto Ng MD [facility] - Recent and Past Visits Recent Visits Date Type Provider Dept 04/01/20 Office Visit Jorge Alberto Ng MD [facility] Showing recent visits within past 460 days [...] Outpatient Visits 2 months ago Acquired hypothyroidism [facility] Jorge Alberto Garcia MD 1 year ago Anal lesion [facility] Jorge Alberto Garcia MD 2 years ago Goiter [facility] - Arabella Connors, PAC 2 years ago Encounter for immunization [facility] - Evette Townsend PAC 2 years ago Uncontrolled type 2 diabetes mellitus without complication, without long-term current use of insulin (HCC) [facility] Upcoming Appointments Future Appointments In 3 months Jorge Alberto Ng MD [facility] - Recent and Past Visits Recent Visits Date Type Provider Dept 04/01/20 Office Visit Jorge Alberto Ng MD [facility] Showing recent visits within past 460 days [...] documented as of this encounter Care Teams Reservations Sales Agent Relationship Specialty Start Date End Date Jorge Alberto Ng MD [address] [address] PCP - General Family Medicine 07/02/15 11/18/22 Sukumar Fitch MD [address] [place] [address] PCP - General Family Medicine 11/19/22 documented as of this encounter
--- OUTSIDE RECORDS SUMMARY | 2024-11-06 00:27 | XMS_ITS | Encounter Summary ---
Author Organization [facility] Address [address] 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
--- OUTSIDE RECORDS SUMMARY | 2024-11-06 00:27 | XMS_ITS | Clinical Summary ---
Author Organization [facility] Address [address] [place] [address] Care Team Providers Care Service Order Taker Name Role Phone Sukumar Fitch MD Primary Care Provider [phone] Allergies No known active allergies Medications aspirin 81 MG chewable tablet Chew 1 tablet (81 mg total) by mouth daily. Active levothyroxine (SYNTHROID) 137 MCG tablet Take 1 tablet (137 mcg total) by mouth daily. 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 Gender Identity Not on file Sexual Orientation Not on file Last Filed Vital Signs Vital Sign Reading Time Taken Comments Blood Pressure 144/60 03/28/2024 1:42 PM CDT Pulse 74 03/28/2024 1:42 PM CDT Temperature 36.2 C (97.2 F) 08/12/2023 2:25 PM FLAG CAR DRIVER Respiratory Rate 18 08/12/2023 2:25 PM FLAG CAR DRIVER Oxygen Saturation 98% 08/12/2023 2:25 PM FLAG CAR DRIVER Inhaled Oxygen Concentration - - Weight 71.2 [...] patient's age to complete this topic Insurance [facility] Care Teams Service Order Taker Relationship Specialty Start Date End Date Sukumar Fitch MD [address] [place] [address] PCP - General FAMILY PRACTICE 07/15/22
--- OUTSIDE RECORDS SUMMARY | 2024-11-06 00:27 | XMS_ITS | Clinical Summary ---
Author Organization [facility] Address [address] [place] [address] Phone Care Team Providers Care Real Estate Coordinator Name Role Phone KAVON ROSENBERG, KARLY Primary Care Provider [phone] Reason for Visit and Chief Complaint The [...] Active Last Documented On 9 12:05PM ; [facility] PERNICIOUS ANEMIA 11/21/2008 KARLY JACOBSON MD Active Last Documented On 9 12:05PM ; [facility] Plan of Treatment - BENIGN SKIN NEOPLASM - Last Documented On 05/26/2010 11:04PM ; [facility] In office procedures/*Family Practice: Shave Lesion Trunk Arms Legs .5cm or Less - Last Documented On 05/26/2010 11:04PM ; [facility] ? DIARRHEALab: Ordered labs - Last Documented On 05/26/2010 11:04PM ; [facility] ? OTHERRadiology/*MAMMOGRAM: Mammogram - Last Documented On 05/26/2010 11:04PM ; [facility] ? PREOP CARDIOVSCLR EXAMIn office [...] - Last Documented On 05/26/2010 11:04PM ; [facility] - Benign skin neoplasm - [...] 9 9:29PM By KARLY JACOBSON MD ; [facility] Medications Administered Includes: Administered Medications from this encounter No Administered Medications Recorded Vital Signs Includes: Vital Signs from this encounter Vital Name 05/26/2010 08:30A Blood Pressure Sitting L 112/72 BP Cuff Size Regular Pulse Rate-Sitting (bpm) 78 Pulse Rhythm Regular Respiration Rate (breaths/min) 18 Temp-Oral (F) 98.6 Weight (lb) 164 Last Documented: On 05/26/2010 8:54AM ; [facility] Results Includes: Results discussed during [...] 03/12/2010 Last Documented On 0 8:46AM ; [facility] Currently 11/21/2008 Last Documented On 0 8:46AM ; [facility] No consumption of alcohol 11/21/2008 Last Documented On 0 8:46AM ; [facility] No tobacco use 11/21/2008 Last Documented On 0 8:46AM ; [facility] Not using drugs 11/21/2008 Last Documented On 0 8:46AM ; [facility] Smoking Status Unknown Procedures and Surgical History Includes: Procedures from this encounter Procedures Code Diagnosis Performing Provider Service L ocation Service Date risks, benefits, and limitations discussed and understood INFLUENZA INJECTION PAPERWORK FILLED OUT AND DISCUSSED Last Documented On 0 10:56PM ; [facility] risks, benefits, and limitat ions discussed and understood - patient wishes to proceed Last Documented On 0 10:56PM ; [facility] Surgical History Last Updated History of hysterectomy 11/21/2008 Last Documented On 0 8:46AM ; [facility] Medical History Includes: Medical History addressed during this encounter Description Last Updated Not taking OTC medications 03/12/2010 Last Documented On 0 8:46AM ; [facility] History of arthritis 11/21/2008 Last [...] Time Diagnosis PRE-OP EXAM KARLY JACOBSON MD [facility] 010 8:24AM 9:57AM Benign Skin Neoplasm,Pre-op Cardiovascular Exam,Diarrhea Insurance Includes: Active Insurance Policies Plan Name Member ID Group # Subscriber Relationship Effect micha Dates 1 - [employer] [id number] ROSALINA OMALLEY Clinical Notes Includes: Clinical Notes from this encounter No Clinical Notes Recorded
--- OUTSIDE RECORDS SUMMARY | 2024-11-06 00:27 | XMS_ITS | Clinical Summary ---
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
--- OUTSIDE RECORDS SUMMARY | 2024-11-06 00:28 | XMS_ITS | Encounter Summary ---
Author Organization [facility] Address [address] [place] [address] Care Team Providers Care Die Press Operator Name Role Phone Sukumar Fitch MD Primary Care Provider [phone] Reason for Referral * Surgical (Routine) - Closed Specialty Diagnoses / Procedures Referred By Contac t Referred To Contact Diagnoses Varicose veins of lower extremity with pain, right Procedures Case request operating room: [facility] PHLEBECTOMY Justin Puentes MD [address] [address] Phone: tel: fax: Referral ID Status Reason Start Date Expiration Date Visits Re quested Visits Authorized [id number] Closed 06/21/2023 06/21/2024 1 1 ARCH AND DEVELOPMENT SCIENTIST * Surgical (Routine) - Closed Specialty Diagnoses / Procedures Referred By Erica guidry Referred To Contact Diagnoses Varicose veins of lower extremity with pain, left Procedures Case request operating room: [facility] PHLEBECTOMY Justin Puentes MD [address] [address] Phone: tel: fax: Referral ID Status Reason Start Date Expiration Date Visits Re quested Visits Authorized [id number] Closed 06/21/2023 06/21/2024 1 1 ARCH AND DEVELOPMENT SCIENTIST Encounter Details Date Type Department Care Team (Late st Contact Info) Description 06/21/2023 Prep for Procedure [facility] [place] [address] [place] [address] Justin Puentes MD Three [facility]. [facility] [address] [place], [place] [id number] Social History Tobacco Use Types Packs/Day Years Used Date Smoking Tobacco: Never Smokeless Tobacco: Never Alcohol Use Standard Drinks/Week Comments Never 0 (1 standard drink = 0.6 oz pur e alcohol) Comments Unknown Sex and Gender Information Value Date Recorded Sex Assigned at Not on file Legal Sex Female 8:15 AM RESEARCH AND DEVELOPMENT SCIENTIST Gender Identity Not on file Sexual Orientation [...] (ABNORMAL) COMPREHENSIVE METABOLIC PANEL (08/12/2023 9:15 AM RESEARCH AND DEVELOPMENT SCIENTIST) GLUCOSE 167(H) 70 - 99 MG/DL 08/12/2023 9:54 AM [facility] BUN 20(H) 7 - 18 MG/DL 08/12/2023 9:54 AM [facility] CREATININE S/P/B 0.80 0.55 - 1.02 MG/DL 08/12/2023 9:54 AM RESEARCH AND DEVELOPMENT SCIENTIST [facility] SODIUM S/P/B 140 136 - 145 MMOL/L 08/12/2023 9:54 AM [facility] POTASSIUM S/P/B 3.6 3.5 - 5.1 MMOL/L 08/12/2023 9:54 AM [facility] CHLORIDE S/P/B 110(H) 100 - 108 MMOL/L 08/12/2023 9:54 AM [facility] CO2 27.9 21 - 32 MMOL/L 08/12/2023 9:54 AM [facility] CALCIUM S/P/B 9.3 8.5 - 10.1 MG/DL 08/12/2023 9:54 AM [facility] BILIRUBIN TOTAL S/P/B 0.6 0.2 - 1.2 MG/DL 08/12/2023 9:54 AM [facility] Comment: THIS ASSAY IS NOT RECOMMENDED FOR PATIENTS UNDERGOING TREATMENT WITH ELTROMBOPAG DUE TO THE POTENTIAL FOR FALSELY ELEVATED RESULTS. TOTAL PROTEIN S/P/B 7.0 6.4 - 8.2 G/DL 08/12/2023 9:54 AM [facility] ALBUMIN S/P/B 3.3(L) 3.4 - 5.0 G/DL 08/12/2023 9:54 AM [facility] AST 13(L) 15 - 37 U/L 08/12/2023 9:54 AM [facility] ALT 21 14 - 55 U/L 08/12/2023 9:54 AM [facility] ALKALINE PHOSPHATASE S/P/B 97 50 - 136 U/L 08/12/2023 9:54 AM [facility] ANION GAP 2.1(L) 5 - 15 MMOL/L 08/12/2023 9:54 AM [facility] BUN CREATININE RATIO 24.9 6 - 26 08/12/2023 9:54 AM [facility] A/G RATIO 0.9(L) 1.0 - 2.0 RATIO 08/12/2023 9:54 AM [facility] GFR ESTIMATE 76(L) >90 ML/MIN/1.7 3 M2 08/12/2023 9:54 AM [facility] Comment: NOTE: eGFR is not calculated for patients <18 years of age. This is an estimated GFR calculation using the new CKD EPI creatinine equation without race and so does not require a correction factor for race. This estimated GFR should not be used for calculating drug doses. 08/12/2023 9:15 AM RESEARCH AND DEVELOPMENT SCIENTIST Justin Puentes MD LABORATORY Final Result [facility] [address] [place] [address], [place] [phone] * CBC W/DIFF AUTOMATED (08/12/2023 9:15 AM RESEARCH AND DEVELOPMENT SCIENTIST) WBC 5.5 4.5 - 11.0 x10'3/uL 08/12/2023 9:43 AM [facility] RBC 5.21 4.20 - 5.40 x10'6/uL 08/12/2023 9:43 AM [facility] HGB 14.3 12.0 - 16.0 G/DL 08/12/2023 9:43 AM [facility] HCT 44.5 38.0 - 48.0 % 08/12/2023 9:43 AM [facility] MCV 85.4 81.0 - 99.0 FL 08/12/2023 9:43 AM [facility] MCH 27.4 27.0 - 31.0 PG 08/12/2023 9:43 AM [facility] MCHC 32.1 32.0 - 36.0 G/DL 08/12/2023 9:43 AM [facility] RDW 12.5 11.5 - 14.5 % 08/12/2023 9:43 AM [facility] PLT 306 130 - 400 x10'3/uL 08/12/2023 9:43 AM [facility] MPV 9.9 9.3 - 12.2 FL 08/12/2023 9:43 AM [facility] DIFFERENTIAL TYPE AUTOMATED DIFFERENTIAL 08/12/2023 9:43 AM [facility] NEUTROPHILS % 57.4 % 08/12/2023 9:43 AM [facility] LYMPHOCYTES % 29.4 % 08/12/2023 9:43 AM [facility] MONOCYTES % 8.7 % 08/12/2023 9:43 AM [facility] EOSINOPHILS 3.8 % 08/12/2023 9:43 AM [facility] BASOPHILS 0.5 % 08/12/2023 9:43 AM [facility] IMMATURE GRANS % 0.2 % 08/12/20 9:43 AM [facility] ABS. NEUTROPHILS TOTAL 3.18 1.80 - 7.70 x10'3/uL 08/12/2023 9:43 AM [facility] ABS. LYMPHOCYTES 1.63 1.00 - 4.80 x10'3/uL 08/12/2023 9:43 AM [facility] ABS. MONOCYTES 0.48 0.24 - 0.86 x10'3/uL 08/12/2023 9:43 AM [facility] ABS. EOSINOPHILS 0.21 0.04 - 0.36 x10'3/uL 08/12/2023 9:43 AM [facility] ABS. BASOPHILS 0.03 0.01 - 0.08 x10'3/uL 08/12/2023 9:43 AM [facility] ABS. IMMATURE GRANULOCYTES 0.01 0.00 - 0.49 x10'3/uL 08/12/2023 9:43 AM RESEARCH AND DEVELOPMENT SCIENTIST [facility] 08/12/2023 9:15 AM RESEARCH AND DEVELOPMENT SCIENTIST Justin Puentes MD LABORATORY Final Result [facility] [address] [place] [address], documented in this encounter Visit Diagnoses Diagnosis Varicose veins of lower extremity with pain, left- Primary Varicose veins of lower extremity with pain, right documented in this encounter Care Teams Die Press Operator Relationship Specialty Start Date End Date Sukumar Fitch MD [address] [place] [address] PCP - General FAMILY PRACTICE 07/15/22 documented as of this encounter
--- OUTSIDE RECORDS SUMMARY | 2024-11-06 00:28 | XMS_ITS | Clinical Summary ---
Author Organization [facility] Address [address] [place] [address] Phone Care Team Providers Care Automatic Bandsaw Tender Name Role Phone Unavailable Primary Care Provider [...] 1 Tablet (112 mcg) by mouth daily offline cutter. 30 Tablet 3 8 Active HYDROcodone-anish taminophen [...] Advance Directives For more information, please contact: [phone] * Full Code (Latest Code Status on File) Date Activated Date Inactivated Comments 03/24/2018 10:42 AM 03/25/2018 12:07 PM * Full Code Date Activated Date Inactivated Comments 03/24/2018 6:52 AM 03/24/2018 10:42 AM * Full Code Date Activated Date Inactivated Comments 03/24/2018 5:55 AM 03/24/2018 6:52 AM
--- OUTSIDE RECORDS SUMMARY | 2024-11-06 00:28 | XMS_ITS | Encounter Summary ---
Author Organization [facility] Address [address] [place] [address] Phone Care Team Providers Care Bar Tacker Sewing Machine Name Role Phone Sukumar Fitch MD Primary Care Provider [phone] Reason for Visit * Reason Comments Medication Refill Encounter Details Date Type Department Care Team (Late st Contact Info) Description 03/04/2023 Refill [facility] - Family Medicine 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 Not on file Not on file documented as of this encounter Plan of Treatment Not on file documented as of this encounter Visit Diagnoses Diagnosis Age-related osteoporosis without current pathological fracture Senile osteoporosis documented in this encounter Additional Health Concerns Assessment Noted Time PHQ-9 Depression Total Score: 0 09/02/19 21 10:33 AM DIRECTOR OF LOGISTICS documented as of this encounter Care Teams Bar Tacker Sewing Machine Relationship Specialty Start Date End Date Sukumar Fitch MD [address] [place] [address] PCP - General Family Medicine 11/19/22 documented as of this encounter
--- OUTSIDE RECORDS SUMMARY | 2024-11-06 00:28 | XMS_ITS ---
Care Plan - [facility] Created on: November 06, 2024 DEBRA OMALLEY : 1945 Sex: Female Author Organization [facility] Address [address] [place] [address] Phone Care Team Providers Care Counsel Name Role Phone KARLY JACOBSON MD Primary Care Provider
--- OUTSIDE RECORDS SUMMARY | 2024-11-06 00:28 | XMS_ITS | Clinical Summary ---
Author Organization [facility] Address [address] [place] [address] Phone Care Team Providers Care Water Server Name Role Phone KARLY JACOBSON MD Primary Care Provider [phone] Reason for Visit and Chief Complaint * PHONE CALL Problems Includes: Problems addressed during this encounter and other active Problems All Visits Onset Date Resolved Date Provider Condition S tatus OSTEOPOROSIS NEC 11/21/2008 KARLY JACOBSON MD Active Last Documented On 9 12:05PM ; [facility] PERNICIOUS ANEMIA 11/21/2008 KARLY JACOBSON MD Active Last Documented On 9 12:05PM ; [facility] Plan of Treatment No Plan [...] 9:29PM By KARLY JACOBSON MD ; [facility] Medications Administered Includes: Administered Medications from this encounter No Administered Medications Recorded Results Includes: Results discussed during this encounter No Results Recorded For Specified Dates History of Present Illness Includes: History of Present Illness from this encounter No History of Present Illness Recorded Social History Description Last Updated Currently 11/21/2008 Last Documented On 0 10:45AM ; [facility] No consumption of alcohol 11/21/2008 Last Documented On 0 10:45AM ; [facility] No tobacco use 11/21/2008 Last Documented On 0 10:45AM ; [facility] Not using drugs 11/21/2008 Last Documented On 0 10:45AM ; [facility] Smoking Status Unknown Procedures and Surgical History Surgical History Last Updated History of hysterectomy 11/21/2008 Last Documented On 0 10:45AM ; [facility] Medical History Includes: Medical History addressed during this encounter Description Last Updated History of arthritis 11/21/2008 Last Documented On 0 10:45AM ; [facility] Family History Includes: Family History addressed during this encounter Description Last Updated Family history of diabetes mellitus 04/2009 Last Documented On 0 10:45AM ; [facility] Heart disease 11/21/2008 Last Documented On 0 10:45AM ; [facility] Review of Systems Includes: Review of Systems [...] Diagnosis * PHONE CALL KARLY JACOBSON MD [facility] 12/05/19 10 10:45AM 11:59PM Insurance Includes: Active Insurance Policies Plan Name Member ID Group # Subscriber Relationship Effect micha Dates - AE [id number] ROSALINA OMALLEY Clinical Notes Includes: Clinical Notes from this encounter No Clinical Notes Recorded
--- OUTSIDE RECORDS SUMMARY | 2024-11-06 00:28 | XMS_ITS | Clinical Summary ---
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 Not on file Not [...] Bone Density 09/25/2023 09/25/2021 Influenza Immunization (#1) 04/15/202408/2012, 08/15/2012 SARS-COV-2 Immunization ( season) 2024 Td [...] Procedure Name Priority Date/Time Associated Diagnosis Comments BEA BONE DENSITOMETRY AXIAL SKELETON Routine 09/25/2021 2:10 PM NURSES EDUCATOR Menopause BEA SCREENING BILATERAL DIGITAL W CAD W YAA Routine 07/03/2020 5:17 PM NURSES EDUCATOR Encounter for screening mammogram for malignant neoplasm of breast HM COLONOSCOPY Routine 02/09/2012 from Last 3 Months or Most Recently Relevant to Health Maintenance Results * BEA BONE DENSITOMETRY AXIAL SKELETON (09/25/2021 2:10 PM NURSES EDUCATOR) Anatomical Region Laterality Modality BODY N/A Other 09/25/2021 2:33 PM NURSES EDUCATOR Impressions 09/25/2021 2:36 PM NURSES EDUCATOR IMPRESSION: Osteoporosis. REFERENCE: Bone mineral density: Normal [...] of Osteoporosis (http://www.nof.org/professionals/clinical-guidelines) Narrative 09/25/2021 2:36 PM NURSES EDUCATOR EXAM DESCRIPTION: [facility] BONE DENSITOMETRY AXIAL SKELETON REASON FOR STUDY: 76 y/o year old F with given history of screening. Life Sciences Instructor/Model: [employer] (S/N [id number]) CLINICAL INFORMATION: Current height: 5 foot 4 [...] Yash Houston M.D. AG: MOMO Report ID: [id number] Reading Location: [place] [address] Procedure Note Yash Houston MD - 09/25/2021 EXAM DESCRIPTION: BEA BONE DENSITOMETRY AXIAL SKELETON REASON FOR STUDY: 76 y/o year old F with given history of screening. 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 AG: MOMO Report ID: [id number] Reading Location: [id number] IMPRESSION: Osteoporosis. REFERENCE: Bone mineral density: Normal [...] W CAD W YAA (07/03/2020 5:17 PM NURSES EDUCATOR) Anatomical Region Laterality Modality breast Bilateral Mammography 07/03/2020 4:46 PM NURSES EDUCATOR Narrative 07/04/2020 11:57 AM NURSES EDUCATOR - BEA SCREENING BILATERAL DIGITAL W CAD [...] made to exams dated: 02/13/2018 and 01/26/2011 [facility]. BREAST TISSUE:There are scattered fibroglandular densities in [...] contacted. Electronically signed by: Faustina juarez/rylie:07/04/2020 10:29:42 Boat Hand: Gia LAWRENCE)(Natan), [facility] letter sent: Additional Imaging Reading location: [facility] BI-RADS: 0 Additional Imaging Evaluation Needed Procedure [...] made to exams dated: 02/13/2018 and 01/26/2011 [facility]. BREAST TISSUE:There are scattered fibroglandular densities in [...] will be contacted. Electronically signed by: Faustina Newton M.D. ab/rylie:07/04/2020 10:29:42 Boat Hand: Gai CASTRO(Wolfgang)(Natan), [facility] letter sent: Additional Imaging Reading location: [facility] BI-RADS: 0 Additional Imaging Evaluation Needed Jorge Alberto Ng MD IMG MAMMO ORDERABLES Final Re sult * HM COLONOSCOPY (02/09/2012) Jorge Alberto Ng MD PROCEDURE/MINOR SURGICAL ORDE RABLES Final Result from Last 3 Months or Most Recently Relevant to Health Maintenance Insurance MEDICARE C [facility] on file Care Teams Notereader Relationship Specialty Start Date End Date Sukumar Fitch MD [address] [place] [address] PCP - General Family Medicine 11/19/22
--- OUTSIDE RECORDS SUMMARY | 2024-11-06 00:28 | XMS_ITS | Encounter Summary ---
Author Organization [facility] Address [address] 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
[2024-11-06 10:22] VITALS: BP 120/79; PULSE 98; RESP 18; TEMP 36.2; O2SAT 98; BMI 24.0
[2024-11-06] MEDS: LACTATED RINGERS 1,000 ML 150 ML IV CONT (10:36)
[2024-11-06 10:37] LABS: Glucose Point of Care 125 mg/dl (65-105)
--- NOTE | 2024-11-06 11:05 | PM.HPGS ---
History of Present Illness History of Present Illness Consent: Risks, benefits, and alternatives have been discussed and questions answered. Patient agrees to proceed with procedure. Chief complaint: Screening Narrative: Alba Wick is a 79 year old female here for screening colonoscopy, last one 10 years ago Review of Systems Review of Systems: All systems reviewed & are unremarkable except as noted in HPI and below PMFSH Family History Family History Father Diabetes mellitus Hypertension Disorder of thyroid Mother Cancer Social History Social History Smoking status: Never smoker Alcohol intake: never Lack of Transportation: No Lack of Food: Never True Current Housing: I Have Housing Concerned About Future Housing: No Difficulty Paying Gas/Electric Bills: No Difficulty Paying for Meds: No Currently Unemployed: No Education: High School Diploma/GED Difficulty w/ Childcare or Family Care: No Living arrangements: with family Additional living arrangements comments: Spiritual care concerns: No Meds Home Medications and Allergies Home Medications ?Medication ?Instructions ?Recorded ?Confirmed ?Type fluticasone propionate 50 See Rx Instructions .Route 06/07/23 11/05/24 Rx mcg/actuation nasal .COMPLEX #16 mL spray,suspension meclizine 12.5 mg tablet 12.5 mg PO TID PRN dizziness #90 04/17/24 11/05/24 Rx tabs empagliflozin 25 mg tablet See Rx Instructions .Route 08/06/24 11/06/24 Rx (Jardiance) .COMPLEX #90 tabs blood sugar diagnostic #100 ea 08/14/24 10/22/24 Rx blood-glucose meter (OneTouch #1 ea 08/14/24 10/22/24 Rx Ultra2 Meter) lancets 33 gauge (OneTouch Delica #100 ea 09/11/24 10/22/24 Rx Plus Lancet) levothyroxine 112 mcg tablet 112 mcg PO DAILY #30 tabs 09/18/24 11/06/24 Rx (Synthroid) semaglutide 0.25 mg or 0.5 mg (2 0.25 mg subcut WEEKLY 10/22/24 11/05/24 History mg/3 mL) subcutaneous pen injector (Ozempic) aspirin 81 mg tablet,delayed 81 mg PO DAILY 11/05/24 11/06/24 History release (Adult Aspirin Regimen) Allergies Allergy/AdvReac Type Severity Reaction Status Date / Time No Known Allergies Allergy Verified 11/06/24 10:21 Vital Signs Vital Signs - 24 hr 11/06/24 10:22 Temperature 97.2 F L Pulse Rate 98 Respiratory Rate 18 Blood Pressure 120/79 Pulse Oximetry 98 Oxygen Delivery Room Air Exam Const: General: comfortable and no acute distress HENMT: Face/Nose/Sinus: Normal nares present Eyes: General: appearance normal, both eyes and all related structures Neck: Neck: no JVD Resp: Auscultation: clear to auscultation bilaterally Cardio: Rate: regular rate Rhythm: regular rhythm GI: Inspection: non-distended GI Palp: Yes Soft to palpation Skin: General skin exam: normal color Neuro: Speech: normal speech Extrem: General: normal to inspection Psych: Mental Status: mental status grossly normal Assessment and Plan Assessment and plan (1) Screening for colon cancer: Code(s): Z12.11 - Encounter for screening for malignant neoplasm of colon Status: Acute Assessment and Plan: colonoscopy
--- NOTE | 2024-11-06 11:06 | WPDANESEPPF ---
Anes - Initial Pre Proc Eval Procedure: Operation Date: 11/06/24 11:30 Proposed Procedures p Screening Colonoscopy - Waldo Kolb MD Date/Time: 11/06/24 11:06 Surgeon: Waldo Kolb MD Pre Op Diagnosis: Screening Patient Data Age: 79 Gender: F Height: 1.63 m Weight: 63.4 kg Last Vital Signs Temp 36.2 C L 11/06/24 10:22 Pulse 98 11/06/24 10:22 Resp 18 11/06/24 10:22 BP 120/79 11/06/24 10:22 Pulse Ox 98 11/06/24 10:22 O2 Del Method Room Air 11/06/24 10:22 Allergies Allergy/AdvReac Type Severity Reaction Status Date / Time No Known Allergies Allergy Verified 11/06/24 10:21 Home Medications ?Medication ?Instructions ?Recorded ?Confirmed ?Type fluticasone propionate 50 See Rx Instructions .Route 06/07/23 11/05/24 Rx mcg/actuation nasal .COMPLEX #16 mL spray,suspension meclizine 12.5 mg tablet 12.5 mg PO TID PRN dizziness #90 04/17/24 11/05/24 Rx tabs empagliflozin 25 mg tablet See Rx Instructions .Route 08/06/24 11/06/24 Rx (Jardiance) .COMPLEX #90 tabs blood sugar diagnostic #100 ea 08/14/24 10/22/24 Rx blood-glucose meter (OneTouch #1 ea 08/14/24 10/22/24 Rx Ultra2 Meter) lancets 33 gauge (OneTouch Delica #100 ea 09/11/24 10/22/24 Rx Plus Lancet) levothyroxine 112 mcg tablet 112 mcg PO DAILY #30 tabs 09/18/24 11/06/24 Rx (Synthroid) semaglutide 0.25 mg or 0.5 mg (2 0.25 mg subcut WEEKLY 10/22/24 11/05/24 History mg/3 mL) subcutaneous pen injector (Ozempic) aspirin 81 mg tablet,delayed 81 mg PO DAILY 11/05/24 11/06/24 History release (Adult Aspirin Regimen) Laboratory Tests 11/06/24 10:30 POC Capillary Glucose 125 H mg/dl (65-105) Patient hx anesthesia problems: none Family hx anesthesia problems: none Results Review: All pre-operative results and documents have been reviewed as part of the pre-operative evaluation. [facility] Past Medical History Medical History (Updated 11/06/24 @ 11:07 by Bert Graves MD) Hypothyroidism Palpitations Dyslipidemia Surgical History Surgical History (Updated 11/06/24 @ 11:07 by Bert Graves MD) H/O thyroidectomy Family History Family History Father Diabetes mellitus Hypertension Disorder of thyroid Mother Cancer Social History Social History Smoking status: Never smoker Alcohol intake: never Lack of Transportation: No Lack of Food: Never True Current Housing: I Have Housing Concerned About Future Housing: No Difficulty Paying Gas/Electric Bills: No Difficulty Paying for Meds: No Currently Unemployed: No Education: High School Diploma/GED Difficulty w/ Childcare or Family Care: No Living arrangements: with family Additional living arrangements comments: Spiritual care concerns: No Anes - Eval Final PreProcedure Day of Procedure 11/06/24 11:06 Patient weight: normal Heart: regular rate and rhythm Lungs: clear to auscultation Airway: Mallampati scale class II Neurological: alert and oriented Last oral intake: >/= 8 hours ASA classification: III Emergent: no Anesthetic plan: proceed Anesthesia type and monitoring: general GIVS and standard monitoring Results Review: All pre-operative results and documents have been reviewed as part of the pre-operative evaluation. Informed Consent: The patient's anesthetic plan and its attendant risks and benefits were discussed with the patient/family/POA. Questions were solicited and answers provided to the satisfaction of the patient/family/POA.
[2024-11-06 11:25] VITALS: BP 113/52; PULSE 88; RESP 25; O2SAT 95
[2024-11-06 11:35] VITALS: BP 104/48; PULSE 83; RESP 21; O2SAT 95
[2024-11-06 11:45] VITALS: BP 107/62; PULSE 80; RESP 20; O2SAT 95
== END 2024-11-06 11:54 | disposition home or self-care (01) ==
PROVIDERS: PCP Nurse Practitioner Adult Health; Referring Provider Nurse Practitioner Adult Health; Visit Provider Internal Medicine Gastroenterology
PROC: 0DJD8ZZ Inspection of Lower Intestinal Tract, Via Natural or Artificial Opening Endoscopic (ICD-10-PCS; CPT 45378; principal; 2024-11-06 11:30)
DX: Z12.11 Encounter for screening for malignant neoplasm of colon (principal); K64.8 Other hemorrhoids; K57.30 Diverticulosis of large intestine without perforation or abscess without bleeding; E03.9 Hypothyroidism, unspecified; E78.5 Hyperlipidemia, unspecified; R00.2 Palpitations; Z79.84 Long term (current) use of oral hypoglycemic drugs; Z79.85 Long-term (current) use of injectable non-insulin antidiabetic drugs; Z79.82 Long term (current) use of aspirin; Z98.890 Other specified postprocedural states; Z80.9 Family history of malignant neoplasm, unspecified
CPT/HCPCS: G0105; 82948; J2003; J2704; J7120

== ENCOUNTER 2025-06-10 13:57 | Outpatient (CLI) | payer MEDICARE, SELFPAY ==
--- OUTSIDE RECORDS SUMMARY | 2025-06-10 15:28 | XMS_ITS | Encounter Summary ---
Author Organization [facility] Address [address] 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 Not on file [...] Outpatient Visits 1 month ago Acquired hypothyroidism [facility] Jorge Alberto Garcia MD 2 months ago Right elbow pain [facility] Jorge Alberto Garcia MD 8 months ago Acquired hypothyroidism [facility] Jorge Alberto Garcia MD 1 year ago Anal lesion [facility] Jorge Alberto Garcia MD 2 years ago Goiter [facility] - Arabella Connors January, Upcoming Appointments Future Appointments In 2 months Lab, [facility], [facility] In 2 months Jorge Alberto Ng MD [facility] FLAT LOCKER - Recent and Past Visits Recent Visits Date Type Provider Dept 10/03/20 Office Visit Jorge Alberto Ng MD [facility] 09/02/20 Office Visit Jorg eAlberto Ng MD [facility] 04/01/20 Office Visit [...] Total Score: 0 09/02/19 21 10:33 AM SUPERVISOR TAN ROOM documented as of this encounter Care Teams Geospatial Technologist Relationship Specialty Start Date End Date Jorge Alberto Ng MD #[address] [address] PCP - General Family Medicine 07/02/15 11/18/22 Sukumar Fitch MD #[address] [address] PCP - General Family Medicine 11/19/22 documented as of this encounter
--- OUTSIDE RECORDS SUMMARY | 2025-06-10 15:28 | XMS_ITS | Clinical Summary ---
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
--- OUTSIDE RECORDS SUMMARY | 2025-06-10 15:28 | XMS_ITS | Clinical Summary ---
Author Organization [facility] Address [address] [place] [address] Phone Care Team Providers Care Leaf Size Picker Name Role Phone Sukumar Fitch MD Primary Care Provider [phone] Allergies No known active allergies Medications Blood [...] complication, without long-term current use of insulin USE TO CHECK BLOOD SUGAR DAILY 100 Strip 2 1 Active Accu-Chek FastClix Lancets MiscIndications:T ype 2 diabetes mellitus without complication, without long-term current use of insulin USE TO TEST BLOOD SUGAR ONCE DAILY 100 Lancet 3 1 Active Blood Glucose Monitoring Suppl (Accu-Chek Guide Hi) w/Device Kit USE TO TEST BLOOD SUGAR ONCE DAILY 1 Kit 1 Active Zinc 50 MG Capsule Take 50 mg by mouth. Active Magnesium 250 MG Tablet Take 500 mg by mouth. 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 Not on file Not on file Not [...] P M CDT Height 162.6 cm (5' 4) 02/25/2022 1:46 PM CDT Body Mass Index 27 02/25/2022 1:46 PM CDT Plan of Treatment Health Maintenance Due Date Last Done Comments Hepatitis C Virus (HCV) Screening 1945 Zoster Immunization (1 of 2) 1997 Medicare Initial AWV [id number] 04/15/2013 Respiratory Syncytial Virus (RSV) Immunization (Adult) (1 - 1-dose 75+ series) 2022 Influenza Immunization (#1) 04/15/202508/2012, 08/15/2012 SARS-COV-2 Immunization ( season) 2025 Td Immunization Every 10 Yea rs (Adults With 1 Tdap) 11/26/2027 11/25/2017 Colonoscopy Discontinued 01/27/2016, 02/09/2012 Colorectal Cancer Screening Discontinued Mammogram Discontinued 07/03/2020, 02/13/2018 Pneumococcal Immunization (5 0+ years) Completed 02/06/2021, 09/19/2017 Pneumococcal Immunization Combined Discontinued 02/06/2021, 09/19/2017 DEXA Bone Density Discontinued 09/25/2021 Cologuard Discontinued Hepatitis B Immunization Aged Out No longer eligible based on patient's age to complete this topic Human Papillomavirus (HPV) Immunization Aged Out No longer eligible based [...] DENSITOMETRY AXIAL SKELETON Routine 09/25/2021 2:10 PM MEDICAL TRANSCRIBER Menopause BEA SCREENING BILATERAL DIGITAL W CAD W YAA Routine 07/03/2020 5:17 PM MEDICAL TRANSCRIBER Encounter for screening mammogram for malignant neoplasm of breast HM COLONOSCOPY Routine 02/09/2012 from Last 3 Months or Most Recently Relevant to Health Maintenance Results * [facility] BONE DENSITOMETRY AXIAL SKELETON (09/25/2021 2:10 PM MEDICAL TRANSCRIBER) Anatomical Region Laterality Modality BODY N/A Other 09/25/2021 2:33 PM MEDICAL TRANSCRIBER Impressions 09/25/2021 2:36 PM MEDICAL TRANSCRIBER IMPRESSION: Osteoporosis. REFERENCE: Bone mineral density: Normal [...] of Osteoporosis (http://www.nof.org/professionals/clinical-guidelines) Narrative 09/25/2021 2:36 PM MEDICAL TRANSCRIBER EXAM DESCRIPTION: [facility] BONE DENSITOMETRY AXIAL SKELETON REASON FOR STUDY: 76 y/o year old F with given history of screening. 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 AG: MOMO Report ID: [id number] Reading Location: [place] [address] Procedure Note Yash Houston MD - 09/25/2021 EXAM DESCRIPTION: BEA BONE DENSITOMETRY AXIAL SKELETON REASON FOR STUDY: 76 y/o year old F with given history of screening. 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 AG: MOMO Report ID: [id number] Reading Location: [id number] IMPRESSION: Osteoporosis. REFERENCE: Bone mineral density: Normal [...] W CAD W YAA (07/03/2020 5:17 PM MEDICAL TRANSCRIBER) Anatomical Region Laterality Modality breast Bilateral Mammography 07/03/2020 4:46 PM MEDICAL TRANSCRIBER Narrative 07/04/2020 11:57 AM MEDICAL TRANSCRIBER - BEA SCREENING BILATERAL DIGITAL W CAD [...] made to exams dated: 02/13/2018 and 01/26/2011 [facility]. BREAST TISSUE:There are scattered fibroglandular densities [...] contacted. Electronically signed by: Faustina juarez/rylie:07/04/2020 10:29:42 Health Informatics Specialist: Gia LAWRENCE)(Natan), [facility] letter sent: Additional [facility] made to exams dated: 02/13/2018 and [facility]. BREAST TISSUE:There are scattered fibroglandular densities [...] contacted. Electronically signed by: Faustina juarez/rylie:07/04/2020 10:29:42 Health Informatics Specialist: Gia CASTRO(Wolfgang)(Natan), [facility] letter sent: Additional Imaging Reading location: [facility] BI-RADS: 0 Additional Imaging Evaluation Needed Jorge Alberto Ng MD IMG MAMMO ORDERABLES Final Re sult * HM COLONOSCOPY (02/09/2012) Jorge Alberto Ng MD PROCEDURE/MINOR SURGICAL ORDE RABLES Final Result from Last 3 Months or Most Recently Relevant to Health Maintenance Insurance MEDICARE C [facility] on file Care Teams Leaf Size Picker Relationship Specialty Start Date End Date Sukumar Fitch MD PCP - General Family Medicine 11/19/22
--- OUTSIDE RECORDS SUMMARY | 2025-06-10 15:28 | XMS_ITS | Encounter Summary ---
Author Organization [facility] Address [address] 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
--- OUTSIDE RECORDS SUMMARY | 2025-06-10 15:28 | XMS_ITS | Clinical Summary ---
Author Organization [facility] Address [address] [place] [address] Phone Care Team Providers Care Shotblaster Name Role Phone Unavailable Primary Care Provider [...] 1 Tablet (112 mcg) by mouth daily early childhood specialist. 30 Tablet 3 8 Active HYDROcodone-anish [...] 1997 OSTEOPOROSIS SCREENING 2012 PNEUMOCOCCAL VACCINE 50+ YEA RS (2 of 2 - PCV20 or PCV21) 09/19/2018 09/19/2017 RSV VACCINE (60+ or ) (1 - 1-dose 75+ series) 2022 INFLUENZA VACCINE (#1) 2025 08/15/2012 DTAP/TDAP/TD VACCINES (2 - Td or Tdap) 11/26/2027 Insurance [employer] CHOICE POS II Advance Directives For more information, please contact: [phone] * Full Code (Latest Code Status on File) Date Activated Date Inactivated Comments 03/24/2018 10:42 AM 03/25/2018 12:07 PM * Full Code Date Activated Date Inactivated Comments 03/24/2018 6:52 AM 03/24/2018 10:42 AM * Full Code Date Activated Date Inactivated Comments 03/24/2018 5:55 AM 03/24/2018 6:52 AM
--- OUTSIDE RECORDS SUMMARY | 2025-06-10 15:28 | XMS_ITS | Encounter Summary ---
Author Organization [facility] Address [address] 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 Not on file Not on file Not on file documented as of this encounter Plan of Treatment Not on file documented as of this encounter Visit Diagnoses Diagnosis Type 2 diabetes mellitus without complication, without long-term current use of insulin documented in this encounter Additional Health Concerns Assessment Noted Time PHQ-9 Depression Total Score: 0 09/02/19 21 10:33 AM CONTRACT ASSISTANT documented as of this encounter Care Teams Swimming Pool Installer And Servicer Relationship Specialty Start Date End Date Sukumar Fitch MD PCP - General Family Medicine 11/19/22 documented as of this encounter
--- OUTSIDE RECORDS SUMMARY | 2025-06-10 15:28 | XMS_ITS | Encounter Summary ---
Author Organization [facility] Address [address] [place] [address] Phone Care Team Providers Care Archery Equipment Repairer Name Role Phone Jorge Alberto Ng MD Primary Care Provider [phone] Sukumar Fitch MD Primary Care Provider Reason for Visit * Reason Comments Medication Refill Encounter Details Date Type Department Care Team (Late st Contact Info) Description 03/08/2021 [facility] [address] [place] [address] Jorge Alberto Ng MD #[address] [address] Medication Refill Social History Tobacco Use Types [...] Total Score: 0 09/02/19 21 10:33 AM SAND MILLER documented as of this encounter Care Teams Archery Equipment Repairer Relationship Specialty Start Date End Date Jorge Alberto Ng MD #[address] [address] PCP - General Family Medicine 07/02/15 11/18/22 Sukumar Fitch MD #[address] [address] PCP - General Family Medicine 11/19/22 documented as of this encounter
--- OUTSIDE RECORDS SUMMARY | 2025-06-10 15:28 | XMS_ITS | Encounter Summary ---
Author Organization [facility] Address [address] 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 - Arabella Connors PAC 2 years ago Encounter for immunization [facility] - Evette Townsend PAC 2 years ago Uncontrolled type 2 diabetes mellitus without complication, without long-term current use of insulin ([facility] Upcoming App[facility]ments Future Appointments In 3 months [facility] - Recent and Past Visits Recent Visits Date Type Provider Dept 04/01/20 Office Visit Jorge Alberto Ng MD [facility] Showing recent visits within past 460 days [...] Outpatient Visits 2 months ago Acquired hypothyroidism [facility] Jorge Alberto Garcia MD 1 year ago Anal lesion [facility] Jorge Alberto Garcia MD [address] [facility] - Arabella Connors, PAC 2 years ago Encounter for immunization [facility] - Evette Townsend PAC 2 years ago Uncontrolled type 2 diabetes mellitus without complication, without long-term current use of insulin ([facility]) [facility] Upcoming Appointments Future Appointments In 3 months Jorge Alberto Ng MD [facility] - Recent and Past Visits Recent Visits Date Type Provider Dept 04/01/20 Office Visit Jorge Alberto Ng MD [facility] Showing recent visits within past 460 days [...] documented as of this encounter Care Teams Green Energy Marketing Analyst Relationship Specialty Start Date End Date Jorge Alberto Ng MD #[address] [address] PCP - General Family Medicine 07/02/15 11/18/22 Sukumar Fitch MD #[address] [address] PCP - General Family Medicine 11/19/22 documented as of this encounter
--- OUTSIDE RECORDS SUMMARY | 2025-06-10 15:32 | XMS_ITS | Clinical Summary ---
Author Organization [facility] Address [address] [place] [address] Care Team Providers Care Medical Library Assistant Name Role Phone Sukumar Fitch MD Primary Care Provider [phone] Allergies No known active allergies Medications aspirin 81 MG chewable tablet Chew 1 tablet (81 mg total) by mouth daily. Active levothyroxine (SYNTHROID) 137 MCG tablet Take 1 tablet (137 mcg total) by mouth daily. 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 04/28/2023 Varicose veins with pain 04/28/2023 Sensorineural hearing loss, bilateral 11/20/2020 GERD (gastroesophageal reflux disease) 8 Right knee pain 08/28/2015 Pernicious anemia 11/21/2008 Resolved Problems Problem Noted Date Diagnosed Date Resolved Date Colon cancer screening 12/08/201504/23 Immunizations Immunization Administration Dates Next Due Influenza (Generic) 08/15/2012 [...] on file Legal Sex Female 8:15 AM CHART COMPUTER Gender Identity Not on file Sexual Orientation Not on file Last Filed Vital Signs Vital Sign Reading Time Taken Comments Blood Pressure 144/60 03/28/2024 1:42 PM CDT Pulse 74 03/28/2024 1:42 PM CDT Temperature 36.2 C (97.2 F) 08/12/2023 2:25 PM CHART COMPUTER Respiratory Rate 18 08/12/2023 2:25 PM CHART COMPUTER Oxygen Saturation 98% 08/12/2023 2:25 PM CHART COMPUTER Inhaled Oxygen Concentration - - Weight 71.2 kg (157 lb) 03/28/2024 1:42 PM CDT Height 162.6 cm (5' 4) 03/28/2024 1:42 PM CDT Body Mass Index 26.95 03/28/2024 1:42 PM CDT Plan of Treatment Health Maintenance Due Date Last Done Comments Hepatitis C 1965 Zoster Vaccines (1 of 2) 1997 Annual Medicare Wellness Visit 2012 RSV Immunization or 60+ Years (1 - 1-dose 75+ series) 2022 COVID-19 Vaccine ( - 2024-2 6 season) 2025 Influenza Adult (#1) 2025 08/15/2012, 05/26/2010 DTaP, Tdap and Td Vaccines ( 2 - Td or Tdap) 11/26/2027 11/25/2017 Pneumococcal Vaccine: 50+ Years Completed 02/06/2021, 09/19/2017 Dexa Scan (General) Completed 09/25/2021, 09/25/2021 Hepatitis A Vaccines Aged Out No long er eligible based on patient's age to complete this topic Meningococcal B Vaccine Aged Out No l onger eligible based on patient's age to complete this topic Meningococcal Vaccine Aged Out No sanjuana annalee eligible based on patient's age to complete this topic RSV Immunizations Under 20 Months Aged Out No longer eligible b ased on patient's age to complete this topic Insurance [facility] MEDIC[facility] Care Teams Medical Library Assistant Relationship Specialty Start Date End Date Sukumar Fitch MD [address] [place] [id number] PCP - General FAMILY PRACTICE 07/15/22
--- OUTSIDE RECORDS SUMMARY | 2025-06-10 15:32 | XMS_ITS | Encounter Summary ---
Author Organization [facility] Address [address] [place] [address] Care Team Providers Care Oral Surgery Technician Name Role Phone Sukumar Fitch MD Primary Care Provider [phone] Reason for Referral * Surgical (Routine) - Closed Specialty Diagnoses / Procedures Referred By Contac t Referred To Contact Diagnoses Varicose veins of lower extremity with pain, right Procedures Case request operating room: [facility] Justin Puentes MD [address] [address] Phone: tel: fax: Referral ID Status Reason Start Date Expiration Date Visits Re quested Visits Authorized [id number] Closed 06/21/2023 06/21/2024 1 1 CRANE DRIVER * Surgical (Routine) - Closed Specialty Diagnoses / Procedures Referred By Erica guidry Referred To Contact Diagnoses Varicose veins of lower extremity with pain, left Procedures Case request operating room: [facility]LE[facility]CTOM[facility] Justin Puentes MD [address] [address] Phone: tel: fax: Referral ID Status Reason Start Date Expiration Date Visits Re quested Visits Authorized [id number] Closed 06/21/2023 06/21/2024 1 1 CRANE DRIVER Encounter Details Date Type Department Care Team (Late st Contact Info) Description 06/21/2023 Prep for Procedure [facility] [place] [address] [place] [address] Justin Puentes MD [facility] [address] [place], [place] [id number] Social History Tobacco Use Types Packs/Day Years Used Date Smoking Tobacco: Never Smokeless Tobacco: Never Alcohol Use Standard Drinks/Week Comments Never 0 (1 standard drink = 0.6 oz pur e alcohol) Comments Unknown Sex and Gender Information Value Date Recorded Sex Assigned at Not on file Legal Sex Female 8:15 AM AUTO CRANE DRIVER Gender Identity Not on file Sexual [...] (ABNORMAL) COMPREHENSIVE METABOLIC PANEL (08/12/2023 9:15 AM AUTO CRANE DRIVER) GLUCOSE 167(H) 70 - 99 MG/DL 08/12/2023 9:54 AM [facility] BUN 20(H) 7 - 18 MG/DL 08/12/2023 9:54 AM [facility] CREATININE S/P/B 0.80 0.55 - 1.02 MG/DL 08/12/2023 9:54 AM AUTO CRANE DRIVER [facility] SODIUM S/P/B 140 136 - 145 MMOL/L 08/12/2023 9:54 AM [facility] POTASSIUM S/P/B 3.6 3.5 - 5.1 MMOL/L 08/12/2023 9:54 AM [facility] CHLORIDE S/P/B 110(H) 100 - 108 MMOL/L 08/12/2023 9:54 AM [facility] CO2 27.9 21 - 32 MMOL/L 08/12/2023 9:54 AM [facility] CALCIUM S/P/B 9.3 8.5 - 10.1 MG/DL 08/12/2023 9:54 AM [facility] BILIRUBIN TOTAL S/P/B 0.6 0.2 - 1.2 MG/DL 08/12/2023 9:54 AM [facility] Comment: THIS ASSAY IS NOT RECOMMENDED FOR PATIENTS UNDERGOING TREATMENT WITH ELTROMBOPAG DUE TO THE POTENTIAL FOR FALSELY ELEVATED RESULTS. TOTAL PROTEIN S/P/B 7.0 6.4 - 8.2 G/DL 08/12/2023 9:54 AM [facility] ALBUMIN S/P/B 3.3(L) 3.4 - 5.0 G/DL 08/12/2023 9:54 AM [facility] AST 13(L) 15 - 37 U/L 08/12/2023 9:54 AM [facility] ALT 21 14 - 55 U/L 08/12/2023 9:54 AM [facility] ALKALINE PHOSPHATASE S/P/B 97 50 - 136 U/L 08/12/2023 9:54 AM [facility] ANION GAP 2.1(L) 5 - 15 MMOL/L 08/12/2023 9:54 AM [facility] BUN CREATININE RATIO 24.9 6 - 26 08/12/2023 9:54 AM [facility] A/G RATIO 0.9(L) 1.0 - 2.0 RATIO 08/12/2023 9:54 AM [facility] GFR ESTIMATE 76(L) >90 ML/MIN/1.7 3 M2 08/12/2023 9:54 AM [facility] Comment: NOTE: eGFR is not calculated for patients <18 years of age. This is an estimated GFR calculation using the new CKD EPI creatinine equation without race and so does not require a correction factor for race. This estimated GFR should not be used for calculating drug doses. 08/12/2023 9:15 AM AUTO CRANE DRIVER Justin Puentes MD LABORATORY Final Result [facility] [address] [place] [address], [place] [phone] * CBC W/DIFF AUTOMATED (08/12/2023 9:15 AM AUTO CRANE DRIVER) WBC 5.5 4.5 - 11.0 x10'3/uL 08/12/2023 9:43 AM [facility] RBC 5.21 4.20 - 5.40 x10'6/uL 08/12/2023 9:43 AM [facility] HGB 14.3 12.0 - 16.0 G/DL 08/12/2023 9:43 AM [facility] HCT 44.5 38.0 - 48.0 % 08/12/2023 9:43 AM [facility] MCV 85.4 81.0 - 99.0 FL 08/12/2023 9:43 AM [facility] MCH 27.4 27.0 - 31.0 PG 08/12/2023 9:43 AM [facility] MCHC 32.1 32.0 - 36.0 G/DL 08/12/2023 9:43 AM [facility] RDW 12.5 11.5 - 14.5 % 08/12/2023 9:43 AM [facility] PLT 306 130 - 400 x10'3/uL 08/12/2023 9:43 AM [facility] MPV 9.9 9.3 - 12.2 FL 08/12/2023 9:43 AM [facility] DIFFERENTIAL TYPE AUTOMATED DIFFERENTIAL 08/12/2023 9:43 AM [facility] NEUTROPHILS % 57.4 % 08/12/2023 9:43 AM [facility] LYMPHOCYTES % 29.4 % 08/12/2023 9:43 AM [facility] MONOCYTES % 8.7 % 08/12/2023 9:43 AM [facility] EOSINOPHILS 3.8 % 08/12/2023 9:43 AM [facility] BASOPHILS 0.5 % 08/12/2023 9:43 AM [facility] IMMATURE GRANS % 0.2 % 08/12/20 9:43 AM [facility] ABS. NEUTROPHILS TOTAL 3.18 1.80 - 7.70 x10'3/uL 08/12/2023 9:43 AM [facility] ABS. LYMPHOCYTES 1.63 1.00 - 4.80 x10'3/uL 08/12/2023 9:43 AM [facility] ABS. MONOCYTES 0.48 0.24 - 0.86 x10'3/uL 08/12/2023 9:43 AM [facility] ABS. EOSINOPHILS 0.21 0.04 - 0.36 x10'3/uL 08/12/2023 9:43 AM [facility] ABS. BASOPHILS 0.03 0.01 - 0.08 x10'3/uL 08/12/2023 9:43 AM [facility] ABS. IMMATURE GRANULOCYTES 0.01 0.00 - 0.49 x10'3/uL 08/12/2023 9:43 AM AUTO CRANE DRIVER [facility] 08/12/2023 9:15 AM AUTO CRANE DRIVER Justin Puentes MD LABORATORY Final Result [facility] [address] [place] [address], documented in this encounter Visit Diagnoses Diagnosis Varicose veins of lower extremity with pain, left- Primary Varicose veins of lower extremity with pain, right documented in this encounter Care Teams Oral Surgery Technician Relationship Specialty Start Date End Date Sukumar Fitch MD [address] [place] [id number] PCP - General FAMILY PRACTICE 07/15/22 documented as of this encounter
[2025-06-10 18:43] LABS: Alanine Aminotransferase 17 U/L (6-35); Albumin Level 4.1 g/dL (3.5-5.1); Alkaline Phosphatase 93 U/L (38-126); Anion Gap 5 mmol/L (4-12); Aspartate Amino Transferase 61 U/L (14-36); Bilirubin,Total 0.3 mg/dL (0.2-1.3); Blood Urea Nitrogen 25 mg/dL (7-17); Calcium 9.2 mg/dL (8.4-10.2); Carbon Dioxide 29 mmol/L (22-30); Chloride 103 mmol/L (98-107); Estimated Glomerular Filt Rate 60; Glucose 215 mg/dL (65-110); Potassium 4.5 mmol/L (3.4-5.0); Sodium 137 mmol/L (137-145); Total Protein 7.4 g/dL (6.3-8.2)
[2025-06-10 18:47] LABS: Cholesterol 212 mg/dL (0-200); Estimated Glomerular Filt Rate > 60; HDL Direct 49 mg/dL; Triglycerides 220 mg/dL (<150)
[2025-06-10 19:06] LABS: Hemoglobin A1C 7.1 % (<5.7)
[2025-06-10 19:24] LABS: Thyroid Stimulating Hormone 0.093 uIU/mL (0.465-4.680)
[2025-06-10 19:28] LABS: MALB Creatinine Ratio 6.4 mg/g (0-30)
== END 2025-06-10 13:58 | disposition home or self-care (01) ==
PROVIDERS: PCP Nurse Practitioner Adult Health; Visit Provider Nurse Practitioner Adult Health
DX: E11.9 Type 2 diabetes mellitus without complications (principal); E89.0 Postprocedural hypothyroidism
CPT/HCPCS: 36415; 80053; 80061; 82043; 82565; 83036; 84443